=== PATIENT | male | born 1940 | race Caucasian/White ===

== ENCOUNTER 2016-10-31 11:11 | Observation (INO) ==
[2016-10-31] MEDS ORDERED: NITROSTAT SL PRN (11:30)
[2016-10-31] MEDS ORDERED: TYLENOL PO PRN (11:30)
[2016-10-31] MEDS ORDERED: ATROPINE SULFATE PFS IVP PRN (11:30)
[2016-10-31] MEDS ORDERED: MORPHINE 4 MG/ML SYRINGE IVP PRN (11:30)
[2016-10-31] MEDS ORDERED: VISTARIL INJ IM PRN (11:30)
[2016-10-31] MEDS ORDERED: DECADRON 4 MG/ML SDV IVP STA (11:35)
[2016-10-31] MEDS ORDERED: HUMULIN R SUBCUT PRN (11:35)
[2016-10-31 11:46] LABS: BASOPHILS % (AUTO) 0.6 % (0.0-3.0); EOSINOPHILS # (AUTO) 0.2 K/ul (0.0-0.7); EOSINOPHILS % (AUTO) 2.5 % (0.0-7.0); HEMOGLOBIN 11.8 g/dl (14.0-18.0); IMMATURE GRANULOCYTE % (AUTO) 0.4 % (0.0-5.0); LYMPHOCYTES # (AUTO) 0.9 K/uL (0.60-3.4); LYMPHOCYTES % (AUTO) 13.6 (10.0-50.0); MEAN CORPUSCULAR HEMOGLOBIN 30.9 pg (27.0-31.0); MEAN CORPUSCULAR HGB CONC 32.8 (31.8-35.4); MEAN CORPUSCULAR VOLUME 94.2 fl (80.0-94.0); MONOCYTES # (AUTO) 0.5 K/uL (0.4-2.0); MONOCYTES % (AUTO) 7.3 (0-10); NEUTROPHILS % (AUTO) 75.6; PLATELET COUNT 240 10^3/uL (140-440); RED BLOOD COUNT 3.82 10^6/ul (4.70-6.10); WHITE BLOOD COUNT 6.68 K/ul (4.2-10.2)
[2016-10-31 12:09] LABS: ALANINE AMINOTRANSFERASE 11 U/L (12-78); ALBUMIN 2.9 g/dL (3.4-5.0); ALBUMIN/GLOBULIN RATIO 0.71; ALKALINE PHOSPHATASE 71 U/L (56-119); ANION GAP 14.3; ASPARTATE AMINO TRANSFERASE 24 U/L (15-37); BILIRUBIN,TOTAL 0.48 mg/dL (0.00-1.20); BLOOD UREA NITROGEN 24 mg/dL (7-18); CARBON DIOXIDE 25 mmol/L (23-31); CHLORIDE 103 mmol/L (98-107); CREATINE KINASE 42 U/L; GLUCOSE 127 mg/dL (82-115); MYOGLOBIN 50 ng/ml; POTASSIUM 4.3 mmol/L (3.5-5.1); SODIUM 138 mmol/L (136-145)
--- NOTE | 2016-10-31 12:38 | DI ---
EXAM: Chest one view, frontal view only. HISTORY: Dizziness. Hypotension. Coronary artery disease. COMPARISON: 07/26/2016. FINDINGS: The heart size is normal. Post CABG changes noted. Atherosclerotic calcifications are p resent. There is no pulmonary vascular congestion. The lungs are clear. No pleural effusion or pn eumothorax is seen. No acute osseous abnormality is identified. Since the prior study, there has b een no significant interval change. IMPRESSION: No acute cardiopulmonary process.
--- NOTE | 2016-10-31 13:15 | US ---
EXAM: Bilateral carotid artery Doppler. History: Dizziness. Technique: Multiple sonographic images through the bilateral internal carotid arteries were obtaine d. Color duplex Doppler was used to interrogate vascular flow. Findings: The right ICA peak systolic velocity is within normal limits measuring 1.0 meters per second. The r ight ICA/cca PSV ratio is normal at 1.4. The right vertebral artery is patent and demonstrates ante grade flow. A moderate amount of heterogeneous plaque is seen within the right carotid bulb and pro ximal right internal carotid artery. The left ICA peak systolic velocity is within normal limits measuring 0.9 meters per second. The le ft ICA/cca PSV ratio is normal at 1.1. The left vertebral artery is patent and demonstrates antegra de flow. A moderate amount of heterogeneous plaque is seen within the left carotid bulb and proxima l left internal carotid artery on banegas scale imaging. Impression: 1. The velocities and ratios indicate no significant hemodynamic stenosis of the bilateral internal carotid arteries. 2. A moderate amount of plaque is seen bilaterally.
--- NOTE | 2016-10-31 13:23 | CT ---
EXAM: CT head without contrast HISTORY: Nausea and dizziness COMPARISON: CT head 07/26/2016 TECHNIQUE: Serial axial images of the brain were obtained from the skull base to the vertex without IV contrast. FINDINGS: The ventricles, cisterns and sulci demonstrate mild generalized volume loss. The banegas-wh ite matter junction is maintained. There is scattered low attenuation in the periventricular white matter.No midline shift or mass is identified. There is no abnormal intra or extra-axial fluid damaris ection. Calcified atherosclerotic changes noted in the arteries at the skull base. The paranasal sin uses and mastoid air cells are clear. The osseous calvarium is intact. IMPRESSION: 1. No acute intracranial abnormality or hemorrhage is identified. 2. No change in mild generalized volume loss and microangiopathy.
[2016-10-31] MEDS: SODIUM CHLORIDE 1,000 ML IV SCH (13:28)
--- NOTE | 2016-10-31 13:36 | CT ---
EXAM: CT abdomen pelvis without contrast HISTORY: Abdominal pain COMPARISON: None TECHNIQUE: CT abdomen pelvis performed without intravenous contrast. Coronal and sagittal reformat kim images obtained. FINDINGS: Curvilinear nodularity right lung base image 2. No free air. There are degenerative pavel nges in the spine. There is a lucent lesion at the peripheral sclerosis right femur. Additional sim ilar appearing lucent lesion left iliac bone. There are sclerotic lesions at T12, L1, L2, new from C T chest 03/03/2014, with mild age indeterminate compression deformity L2. No retropulsion. Degener ative changes in the spine. Evaluation organ parenchyma limited without contrast. Heart normal in s ize. Liver appears normal. Gallbladder appears normal. Pancreas appears normal. There is granulo matous calcification in the spleen. Spleen otherwise appears normal. There is stable 1.4 cm left ad renal nodule , unchanged from 2013. No hydronephrosis or nephrolithiasis. There is a low-density l eft renal lesion measuring 1.9 cm and slightly greater than simple fluid attenuation, indeterminate. No calculi visualized in normal course of the ureters. Bladder only minimally distended and poorl y evaluated, grossly unremarkable. There are radiopaque seeds in the prostate region. Small fat-co ntaining bilateral inguinal hernias. Aorta normal in caliber. Atherosclerosis. Stomach appears no rmal. No dilated loops small bowel. Appendix appears normal. There is colonic diverticulosis. S mall fat-containing umbilical hernia. No lymphadenopathy. No ascites. No inflammatory stranding i dentified in the abdomen pelvis. IMPRESSION: 1. No acute inflammatory process identified in the abdomen or pelvis. 2. Unexpected finding: Sclerotic vertebral body lesions, highly suspicious for metastasis, may be related to prostate cancer given radiopaque seeds in the prostate region. Mild age indeterminate co mpression fracture L2. 3. Additional lucent lesions as described, indeterminate. Right femoral lesion could conceivably re present avascular necrosis. Recommend attention on follow-up . 4. Curvilinear nodularity right lung base, probably representing scarring with small area of pneumo nitis or pulmonary nodule considered less likely. CT chest follow-up recommended 3 months for reeval uation. 5. Colonic diverticulosis. 6. Indeterminate left renal lesion. Recommend correlation with ultrasound. 7. Left adrenal nodule, probably adenoma.
[2016-10-31 13:57] LABS: ADD URINE MICROSCOPIC YES; BILIRUBIN,URINE Negative (NEGATIVE); KETONES,URINE Trace (NEGATIVE); LEUKOCYTE ESTERASE ,URINE Negative (NEGATIVE); NITRITE,URINE Negative (NEGATIVE); PH,URINE 6.5 (5-9); PROTEIN,URINE 1+ (NEGATIVE); URINE, BLOOD Negative (NEGATIVE)
[2016-10-31 14:16] VITALS: BMI 30.2
[2016-10-31] MEDS ORDERED: ANTIVERT PO SCH (15:00)
[2016-10-31] MEDS ORDERED: NORCO 7.5-325 PO SCH (15:00)
[2016-10-31] MEDS ORDERED: NON-FORMULARY MEDICATION (Meclizine Hcl [Meclizine Hcl] 25 MG) PO PRN (15:00)
[2016-10-31] MEDS ORDERED: NORCO 7.5-325 PO PRN (15:16)
[2016-10-31] MEDS: LIPITOR PO SCH (16:26)
[2016-10-31 20:14] LABS: CREATINE KINASE 45 U/L; MYOGLOBIN 34 ng/ml
[2016-10-31] MEDS: MS CONTIN PO SCH (21:12)
[2016-10-31] MEDS: NON-FORMULARY MEDICATION (Omega-3 Acid Ethyl Esters [Lovaza] 2 CAP) PO SCH (21:13)
[2016-11-01 05:37] LABS: BASOPHILS % (AUTO) 0.1 % (0.0-3.0); HEMATOCRIT 34.6 % (42.0-52.0); HEMOGLOBIN 11.7 g/dl (14.0-18.0); IMMATURE GRANULOCYTE % (AUTO) 0.7 % (0.0-5.0); LYMPHOCYTES # (AUTO) 1.2 K/uL (0.60-3.4); LYMPHOCYTES % (AUTO) 14.3 (10.0-50.0); MEAN CORPUSCULAR HEMOGLOBIN 31.1 pg (27.0-31.0); MEAN CORPUSCULAR HGB CONC 33.8 (31.8-35.4); MONOCYTES # (AUTO) 0.4 K/uL (0.4-2.0); MONOCYTES % (AUTO) 4.3 (0-10); NEUTROPHILS # (AUTO) 6.9 K/ul (2.0-6.9); NEUTROPHILS % (AUTO) 80.6; PLATELET COUNT 264 10^3/uL (140-440); RED BLOOD COUNT 3.76 10^6/ul (4.70-6.10); WHITE BLOOD COUNT 8.55 K/ul (4.2-10.2)
[2016-11-01 05:49] VITALS: BP 140/72; TEMP 97.2
[2016-11-01 06:01] LABS: ALBUMIN 2.9 g/dL (3.4-5.0); ALBUMIN/GLOBULIN RATIO 0.64; ANION GAP 14.1; BILIRUBIN,TOTAL 0.28 mg/dL (0.00-1.20); BUN/CREATININE RATIO 18.43; CREATININE 1.41 mg/dL (0.60-1.10); POTASSIUM 5.1 mmol/L (3.5-5.1); TOTAL PROTEIN 7.4 g/dL (5.8-8.1)
[2016-11-01] MEDS ORDERED: ASPIRIN EC PO SCH (08:00)
[2016-11-01] MEDS: LIPITOR PO SCH (08:02)
[2016-11-01] MEDS: NON-FORMULARY MEDICATION (Omega-3 Acid Ethyl Esters [Lovaza] 2 CAP) PO SCH (08:03)
[2016-11-01] MEDS: MS CONTIN PO SCH (08:08)
[2016-11-01] MEDS: SODIUM CHLORIDE 1,000 ML IV SCH (08:08)
[2016-11-01] MEDS ORDERED: NON-FORMULARY MEDICATION (Potassium Chloride [Klor-Con 10] 10 MEQ) PO SCH ×22 (09:00)
[2016-11-01] MEDS ORDERED: MULTIVIT MIN PO SCH (09:00)
[2016-11-01] MEDS ORDERED: NON-FORMULARY MEDICATION PO SCH ×22 (09:00)
[2016-11-01] MEDS ORDERED: LYCOPENE PO SCH (09:00)
[2016-11-01] MEDS ORDERED: FLOMAX PO SCH (09:00)
[2016-11-01] MEDS ORDERED: ASPIRIN CHEWABLE PO SCH (09:00)
[2016-11-01] MEDS ORDERED: LOPRESSOR PO SCH ×3 (09:00)
[2016-11-01] MEDS ORDERED: LUT PO SCH (09:00)
[2016-11-01] MEDS ORDERED: TRADJENTA PO SCH (09:00)
[2016-11-01] MEDS ORDERED: MIRALAX PO SCH (09:00)
[2016-11-01] MEDS ORDERED: [UNRECOGNIZED DRUG - OTHER] PO SCH (09:00)
[2016-11-01] MEDS ORDERED: NON-FORMULARY MEDICATION (Atorvastatin Calcium [Atorvastatin Calcium] 80 MG) PO SCH ×22 (09:00)
[2016-11-01] MEDS ORDERED: NEURONTIN PO SCH (09:00)
[2016-11-01] MEDS ORDERED: ABIRATERONE ACETATE 1000 MG PO SCH (10:00)
--- NOTE | 2016-11-01 13:37 | PCM.PROG ---
Attending Provider: ATTENDING PROVIDER: Dr. VERONIKA OCONNELL DATE OF SERVICE: 11/01/16 SUBJECTIVE: This 76 year old WHITE/ M was hospitalized 10/31/16. The patient is admitted with severe dizziness and hypertension most likely medication and dehydration related. CT scan of of the abdomen and pelvis shows L2 compression deformity and with questionable mets. Given his history of prostate cancer and the fact the patient has followup with Dr. Iverson in the morning, radiation/ oncologist in [place], he is being discharged today. The patient is wanting to go home. As of now, he is walking fine, no cauda equina syndrome. He is urinating without any problems. REVIEW OF SYSTEMS: CONSTITUTIONAL: No fever, no chills. ENDOCRINE: No weight loss or weight gain. HEENT: No sinus drainage, no sore throat. CVS: No angina symptoms. No CHF symptoms. No palpitations. No atypical chest pain for CAD. No shortness of breath. RESPIRATORY: No cough, no hemoptysis. GI: No melena. No abdominal pain. No nausea, no vomiting. : No hematuria. No polyuria. SKIN: No rash. No wounds. MUSCULOSKELETAL: No pain. CEILING INSULATION BLOWER: No blackout, no dizziness. No headache. No double vision. PSYCHIATRIC: Not anxious; no depression. No suicidal thoughts. No homicidal thoughts. PHYSICAL EXAMINATION: GENERAL: Sitting up in bed in no distress. VITAL SIGNS: Temperature 97.2 F, Pulse 69, Respiratory Rate 16, BP 140/72, Pulse Ox 98% HEENT: Normocephalic, atraumatic. Mucosa is dry, pallor positive. NECK: No JVP, no carotid bruit. No lymphadenopathy. CARDIAC: S1, S2, no S3. No murmur, gallop or regurgitation. LUNGS: Clear to auscultation. ABDOMEN: Soft, non-tender. Bowel sounds active. No rigidity, guarding or CVA tenderness. EXTREMITIES: No clubbing, cyanosis or edema. NEUROLOGIC: Awake, alert and oriented x3. LYMPHATIC: No palpable lymph nodes SKIN: Not dry. Intact. MUSCULOSKELETAL: No joint swelling. LAB REVIEW: 11/01/16 05:47 11/01/16 05:47 11/01/16 05:47: WBC 8.55, RBC 3.76 L, Hgb 11.7 L, Hct 34.6 L, MCV 92.0, MCH 31.1 H, MCHC 33.8, RDW Coeff of Bryn 12.7, Plt Count 264, Immature Gran % (Auto) 0.7, Neut % (Auto) 80.6, Lymph % (Auto) 14.3, [place] % (Auto) 4.3, Eos % (Auto) 0.0, Baso % (Auto) 0.1, Immature Gran # (Auto) 0.1, Neut # 6.9, Lymph # 1.2, [place] # 0.4, Eos # 0.0, Baso # 0.0, Sodium 136, Potassium 5.1, Chloride 105, Carbon Dioxide 22 L, Anion Gap 14.1, BUN 26 H, Creatinine 1.41 H, Estimated GFR (MDRD) 49.00, BUN/Creatinine Ratio 18.43, Glucose 152 H, Calcium 9.0, Total Bilirubin 0.28, AST 21, ALT 12, Alkaline Phosphatase 69, Total Protein 7.4, Albumin 2.9 L, Globulin 4.5, Albumin/Globulin Ratio 0.64 10/31/16 19:40: Total Creatine Kinase 45, Myoglobin 34, Troponin I < 0.0100 10/31/16 13:30: Urine Color Yellow, Urine Clarity Clear, Urine pH 6.5, Ur Specific [place] 1.020, Urine Protein 1+, Urine Glucose (UA) Negative, Urine Ketones Trace, Urine Blood Negative, Urine Nitrite Negative, Urine Bilirubin Negative, Urine Urobilinogen 0.2, Ur Leukocyte Esterase Negative, Urine Microscopic RBC 0-2, Ur Squamous Epith Cells 2-5 10/31/16 11:30: WBC 6.68, RBC 3.82 L, Hgb 11.8 L, Hct 36.0 L, MCV 94.2 H, MCH 30.9, MCHC 32.8, RDW Coeff of Bryn 13.2, Plt Count 240, Immature Gran % (Auto) 0.4, Neut % (Auto) 75.6, Lymph % (Auto) 13.6, [place] % (Auto) 7.3, Eos % (Auto) 2.5, Baso % (Auto) 0.6, Immature Gran # (Auto) 0.0, Neut # 5.0, Lymph # 0.9, [place] # 0.5, Eos # 0.2, Baso # 0.0, Sodium 138, Potassium 4.3, Chloride 103, Carbon Dioxide 25, Anion Gap 14.3, BUN 24 H, Creatinine 1.60 H, Estimated GFR ( MDRD) 42.00, BUN/Creatinine Ratio 15.00, Glucose 127 H, Calcium 9.0, Total Bilirubin 0.48, AST 24, ALT 11 L, Alkaline Phosphatase 71, Total Creatine Kinase 42, Myoglobin 50, Troponin I < 0.0100, Total Protein 7.0, Albumin 2.9 L, Globulin 4.1, Albumin/Globulin Ratio 0.71 ASSESSMENT: 1. Dizziness, medication related 2. Dehydration which is much better 3. Prostate cancer with mets; follows with Dr. Iverson, radiation/oncologist 4. Hypertension 5. BPH 6. Dyslipidemia 7. Osteoarthritis 8. DJD spine 9. 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 Diabetes mellitus PLAN: 1. Discharge home 2. Inform Dr. Iverson's office about CT findings. The patient follows with and has an appointment tomorrow at 8 a.m. 3. Medication side effects (pain medication, blood pressure pills discussed, increase hydration 4. Followup in the office in one week Plan and coordination of the patient's care discussed in the presence of Shop Teacher and nurse. EDUCATION: Discussed with the patient results of CT scan of abdomen and discharge plan with the patient. He voiced understanding and is in agreement. CONDITION: Stable SCRIBED BY: STEVO RESENDIZ [employer] Education Consultant scribed while in presence of service performed by Dr. VERONIKA OCONNELL on 11/01/16 (0812)
--- NOTE | 2016-11-03 07:22 | SSS ---
DATE OF SERVICE: 10/31/16 - ADMITTED 11/01/16 - DISCHARGE REASON FOR ADMISSION: Observation for dizziness. HISTORY OF PRESENT ILLNESS: This is a 76-year-old male patient who was a direct admit to observation after office visit today. The patient said he had been dizzy with visual disturbance , unable to walk due to vision changes. Denies muscle weakness in legs. REVIEW OF SYSTEMS: CONSTITUTIONAL: Positive for fatigue. No weakness. No night sweats. No fever or chills. HEENT: Eyes: No visual changes. No eye pain. No eye discharge. ENT: No runny nose. No epistaxis. No sinus pain. No sore throat. No odynophagia. No ear pain. No congestion. RESPIRATORY: No cough, no congestion. No hemoptysis. CARDIOVASCULAR: No angina symptoms. No CHF symptoms. No atypical chest pain for CAD. No palpitations. No shortness of breath. GASTROINTESTINAL: No abdominal pain. No nausea or vomiting. No diarrhea or constipation. No hematemesis. No hematochezia. GENITOURINARY: No urgency. No frequency. No dysuria. No hematuria. No obstructive symptoms. No discharge. No pain. No significant abnormal bleeding. MUSCULOSKELETAL: No musculoskeletal pain. No joint swelling. NEUROLOGICAL: Awake, alert, oriented to time, place and person. No headache. No neck pain. No syncope. No seizures. No dizziness. PSYCHIATRIC: Not anxious. No depression. No suicidal thoughts. No homicidal thoughts. SKIN: No rash. No lesions. No wounds. ENDOCRINE: No unexplained weight loss. No weight gain. HEMATOLOGIC/LYMPHATIC: No anemia. No purpura. No petechiae. No prolonged or excessive bleeding. No palpable lymph nodes. PAST MEDICAL HISTORY: 1. CAD status post CABG, four vessel, 2005 2. Prostate cancer - radiation 3. Diabetes mellitus, Type 2 4. Neuropathy 5. Dyslipidemia 6. Hypertension 7. Degenerative disk disease - spine 8. Bone and blood metastasis, follows with Dr. Kim/Dr. Iverson PERSONAL/FAMILY HISTORY/SOCIAL HISTORY: The patient is , independent with ADLs. He is a former smoker. No ETOH. He has a bedside commode. No Home Health or Homemaking Services. Family provides support. PHYSICAL EXAMINATION: GENERAL: 76-year-old male. Height 6'1", Weight 229 pounds. VITAL SIGNS: Admission vital signs: BP 90/53, heart rate 56, respiratory rate 12, temperature 97.7. Sats on room air 97%. HEENT: Head normocephalic, atraumatic. Pallor positive. NECK: Supple. No JVD, no carotid bruit. No lymphadenopathy or thyromegaly. LUNGS: Bilaterally equal and clear to auscultation. Percussion note normal. Chest symmetrical. HEART: S1, S2, no S3. No murmurs. No cyanosis or clubbing. No ascites. ABDOMEN: Soft. Nontender. Bowel sounds active. No CVA tenderness. No mass felt. EXTREMITIES: No edema. Full range of motion of all extremities, equal. NEUROLOGIC: No focal deficit. Cranial nerves II through XII are grossly intact. No headache, no double vision or headache. SKIN: Not dry. Intact. Turgor - normal. LYMPHATIC: No palpable lymph nodes/no lymphedema. MUSCULOSKELETAL: Normal joints with no swelling. Muscle tone is normal. Old/present records reviewed Office records reviewed. ALLERGIES: NKDA MEDICATIONS: 1. Zytiga 2. Meclizine 3. Klor-Con 4. Centrum Silver 5. MS Contin 6. [place] 7. Lovaza 8. Lopressor 9. ASA 10. Tamsulosin 11. Miralax 12. Atorvastatin 13. Tradjenta 14. Gabapentin LABS/EKG'S/X-RAY/ECHO/ABG: Carotid ultrasound - no hemodynamically significant stenosis per velocities. CT scan of abdomen and pelvis - no acute process. Sclerotic vertebral body lesions suspicious for mets. Age indeterminate compression fracture L2; right femoral lesion, avascular necrosis. Left renal lesion. Left adrenal nodule, adenoma. Head CT is negative. Chest x-ray is negative. PROGRESS NOTES: See EMR. DIAGNOSES: 1. DIZZINESS 2. PROSTATE CANCER WITH METASTASIS 3. L2 COMPRESSION FRACTURE 4. CORONARY ARTERY DISEASE 5. CORONARY ARTERY BYPASS GRAFTING 6. DIABETES MELLITUS TYPE 2 7. HYPERTENSION RECOMMENDATIONS/PLAN: 1. Discharge home today 2. Resume home medications 3. No new prescriptions 4. Keep appointment with Dr. Iverson 11/02/16 at 8 a.m. 5. Call to schedule office appointment in 7 to 10 days 6. Take CD with you for appointment with Dr. Iverson 7. Stay well-hydrated EDUCATION CARRIED OUT ABOUT: CT findings, followup and medications. TIME SPENT: More than 70 minutes. JORGED
== END 2016-11-01 11:15 | disposition home or self-care (01) ==
LOC: MEDSURG B 11:11
PROVIDERS: ADMIT Emergency Medicine; ATTEND Emergency Medicine
DX: R42 Dizziness and giddiness (principal); N40.0 Benign prostatic hyperplasia without lower urinary tract symptoms; C61 Malignant neoplasm of prostate; C79.51 Secondary malignant neoplasm of bone; G89.29 Other chronic pain; E86.0 Dehydration; M43.8X6 Other specified deforming dorsopathies, lumbar region; E11.9 Type 2 diabetes mellitus without complications; I10 Essential (primary) hypertension; E78.5 Hyperlipidemia, unspecified; M19.90 Unspecified osteoarthritis, unspecified site; M47.9 Spondylosis, unspecified; S32.029A Unspecified fracture of second lumbar vertebra, initial encounter for closed fracture; I25.10 Atherosclerotic heart disease of native coronary artery without angina pectoris; Z95.1 Presence of aortocoronary bypass graft; Z79.899 Other long term (current) drug therapy; Z79.84 Long term (current) use of oral hypoglycemic drugs
CPT/HCPCS: 36415; 80053; 81001; 82550; 82962; 83874; 84484; 85025; 93005; 93010; 96361; 96374

== ENCOUNTER 2016-12-23 09:52 | Emergency (ER) ==
[2016-12-23 09:58] VITALS: BP 111/63; TEMP 98.5; BMI 29.7
[2016-12-23 10:41] LABS: HEMATOCRIT 31.6 % (42.0-52.0); HEMOGLOBIN 10.7 g/dl (14.0-18.0); MEAN CORPUSCULAR HEMOGLOBIN 30.5 pg (27.0-31.0); MEAN CORPUSCULAR HGB CONC 33.9 (31.8-35.4); PLATELET COUNT 182 10^3/uL (140-440); RED BLOOD COUNT 3.51 10^6/ul (4.70-6.10); WHITE BLOOD COUNT 4.41 K/ul (4.2-10.2)
[2016-12-23 11:05] LABS: ALBUMIN 2.5 g/dL (3.4-5.0); ALBUMIN/GLOBULIN RATIO 0.68; ANION GAP 13.7; BILIRUBIN,TOTAL 0.93 mg/dL (0.00-1.20); BUN/CREATININE RATIO 15.51; CALCIUM 8.8 mg/dL (8.2-10.2); CREATININE 1.16 mg/dL (0.60-1.10); POTASSIUM 3.7 mmol/L (3.5-5.1); TOTAL PROTEIN 6.2 g/dL (5.8-8.1); TROPONIN I 0.031 ng/ml (0.0000-0.4000)
--- NOTE | 2016-12-23 11:14 | DI ---
EXAM: Two x-rays of the chest. Comparison: 10/31/2016. Reason for exam: Cough. FINDINGS: No pneumothorax, pleural effusion, or focal consolidation. Operative changes are seen af ter midline sternotomy and left-sided Port-A-Cath placement with the tip in the superior vena cava. There is a small focus of linear atelectasis in the left lung base. Osseous changes are seen in th e right rib likely from prior injury. The cardiac silhouette is not enlarged. The inferior-most walter rnotomy wire is fractured. Impression: No acute cardiopulmonary process.
[2016-12-23 11:15] LABS: ANISOCYTOSIS NOT PRESENT (NOT PRESENT)
--- NOTE | 2016-12-23 11:21 | CT ---
EXAM: CT of the head without contrast History: Headache. Comparison: Head CT 10/31/2016 Technique: Multiplanar CT images through the head were obtained without the administration of IV co ntrast Findings: Air-fluid levels seen within the left maxillary sinus. Mastoid air cells are generally c lear. No acute calvarial abnormalities. Intracranially the ventricular cisternal spaces are normal in size, shape and configuration for a pa tient of this age. No dominant mass or midline shift. No hydrocephalous. No acute intracranial he morrhage or abnormal extraaxial fluid collections. Impression: 1. No acute intracranial process. 2. Left maxillary sinusitis.
[2016-12-23] MEDS ORDERED: DECADRON 4 MG/ML SDV IM STA (13:11)
--- NOTE | 2016-12-23 13:15 | ED.PDOC ---
General ED Provider: Dr. CATRINA MCKENNA Chief Complaint: Sore Throat Stated Complaint: SORE THROAT Time Seen by Physician: 10:00 Mode of Arrival: Walk-In Information Source: Patient Exam Limitations: No limitations Primary Care Provider: CALOS VÁSQUEZ Nursing and Triage Documentation Reviewed and Agree: Yes Neurological Complaint Exam - Weakness Complaint/Exam Last Known Well: UNKNWON Onset: Gradual Symptoms Are: Still present Episodes Lasting: Hours Initial Severity: Mild Current Severity: Mild Character: Reports: Lightheaded, Weak Aggravating: Reports: None Alleviating: Reports: None Associated Signs and Symptoms: Denies: Nausea, Vomiting, Diaphoresis, Tinnitus, Chest pain, Short of air, Palpitations, Unsteady gait, GI blood loss, Visual changes, Decreased oral intake, Change in medication, Change in diet, OTC meds, Loss of balance Related History: Similar episode Cardiac Risk Factors: Reports: Hypertension, Diabetes, Elevated lipids CVA Risk Factors: Reports: Diabetes, Hypertension Related Surgical History: Reports: None JVD Present: No Carotid Bruit Present: No Rectal Heme Positive: No Gl[place]ow Coma Scale (see protocol): 15 Nystagmus Present: No Gag Reflex Present: Yes Meningeal Signs Positive: No Focal Weakness: Present: None Focal Sensory Loss: Present: None Gait: Normal Differential Diagnoses: Dysrhythmia, Hyperventilation, Hypovolemia, Medication reaction, Metabolic abnormalities, Vasovagal reaction Quality Indicators for Cardiac Chest Pain: EKG in 10min. Quality Indicators for AMI: EKG in 10min. Quality Indicator For Non-Traumatic Chest Pain/Syncope: EKG Performed Review of Systems - Review Of Systems Constitutional: Reports: Malaise, Weakness Eyes: Reports: No symptoms Ears, Nose, Mouth, Throat: Reports: Throat pain Respiratory: Reports: No symptoms Cardiac: Reports: No symptoms GI: Reports: No symptoms : Reports: No symptoms Musculoskeletal: Reports: No symptoms Skin: Reports: No symptoms Neurological: Reports: No symptoms Endocrine: Reports: No symptoms Hematologic/Lymphatic: Reports: No symptoms All Other Systems: Reviewed and Negative Past Medical History - Past Medical History Previously Healthy: No Endocrine: Reports: DM 2, Dyslipidemia Cardiovascular: Reports: Hypertension Respiratory: Reports: COPD Hematological: Reports: None Gastrointestinal: Reports: None Genitourinary: Reports: None Neuro/Psych: Reports: None Musculoskeletal: Reports: None Cancer: Reports: None, Other (PROSTATE) - Surgical History General Surgical History: Reports: None - Family History Family History: Reports: None - Social History Smoking Status: Former smoker Hx Substance Use: No Alcohol Screening: None - Immunizations Tetanus Shot up to Date: Yes Physical Exam - Physical Exam Appearance: Well-appearing, No pain distress, Well-nourished Eyes: HOLLY, EOMI, Conjunctiva clear ENT: Erythema Respiratory: Airway patent, Breath sounds clear, Breath sounds equal, Respirations nonlabored Cardiovascular: RRR, Pulses normal, No rub, No murmur GI/: Soft, Nontender, No masses, Bowel sounds normal, No Organomegaly Musculoskeletal: Normal strength, ROM intact, No edema, No calf tenderness Skin: Warm, Dry, Normal color Neurological: Sensation intact, Motor intact, Reflexes intact, Cranial nerves intact, Alert, Oriented Psychiatric: Affect appropriate, Mood appropriate Critical Care Note - Critical Care Note Total Time (mins): 0 Course - Course Hematology/Chemistry: 12/23/16 10:30 12/23/16 10:30 Orders, Labs, Meds: Lab Review 12/23/16 10:30 WBC 4.41 RBC 3.51 L Hgb 10.7 L Hct 31.6 L MCV 90.0 MCH 30.5 MCHC 33.9 RDW Coeff of Bryn 13.2 Plt Count 182 Neutrophils % (Manual) 72.0 Band Neutrophils % 1.0 Lymphocytes % (Manual) 16.0 Monocytes % (Manual) 2.0 Eosinophils % (Manual) 1.0 Metamyelocytes % 8.0 H RBC Morph Comment Sodium 136 Potassium 3.7 Chloride 101 Carbon Dioxide 25 Anion Gap 13.7 BUN 18 Creatinine 1.16 H Estimated GFR (MDRD) 61.00 BUN/Creatinine Ratio 15.51 Glucose 153 H Lactic Acid 18.5 Calcium 8.8 Total Bilirubin 0.93 AST 36 ALT 27 Alkaline Phosphatase 79 Total Creatine Kinase 35 Troponin I 0.0310 Total Protein 6.2 Albumin 2.5 L Globulin 3.7 Albumin/Globulin Ratio 0.68 Orders Category Date Time Status EKG-(ED ONLY) Stat CARDIO 12/23/16 10:18 Completed BLOOD CULTURE Stat LAB 12/23/16 10:30 Received CBC W/ AUTO DIFF Stat LAB 12/23/16 10:30 Completed COMPREHENSIVE METABOLIC PANEL Stat LAB 12/23/16 10:30 Completed CREATINE KINASE Stat LAB 12/23/16 10:30 Completed LACTIC ACID Stat LAB 12/23/16 10:30 Completed MANUAL DIFFERENTIAL Stat LAB 12/23/16 10:30 Completed MOLECULAR GROUP A STREP Stat LAB 12/23/16 10:30 Results STREP SCREEN Stat LAB 12/23/16 10:30 Results TROPONIN I Stat LAB 12/23/16 10:30 Completed Dexamethasone 4 mg/ml Inj [Decadron 4 mg/ml Sdv] MEDS 12/23/16 13:11 Discontinued 4 mg IM ONCE STA CHEST, 2 VIEWS PA & LAT Stat RADS 12/23/16 10:[address] HEAD W/O CONTRAST Stat RADS 12/23/16 10:40 Completed Medications Discontinued Medications Generic Name Dose Route Start Last Admin Trade Name Freq PRN Reason Stop Dose Admin Dexamethasone Sodium Phosphate 4 mg 12/23/16 13:11 Decadron 4 Mg/Ml Sdv IM 12/23/16 13:12 ONCE STA Vital Signs: Temp Pulse Resp BP Pulse Ox 12/23/16 09:52 98.5 F 111 H 20 111/63 95 Departure - Departure Time of Disposition: 13:16 Disposition: ADMITTED INPATIENT Discharge Problem: Sore throat symptom, Weakness generalized Instructions: Weakness (ED) Condition: Good Pt referred to PMD for follow-up: No Allergies/Adverse Reactions: Allergies No Known Allergies Allergy (Verified 12/23/16 09:58) Home Medications: Ambulatory Orders Metoprolol Tartrate 100 mg PO DAILY 10/10/13 [place]-3 Acid Ethyl Esters [Lovaza] 2 cap PO BID 10/10/13 Potassium Chloride [Klor-Con 10] 10 meq PO DAILY 10/10/13 Tamsulosin HCl 0.4 mg PO DAILY 10/10/13 Hydrocodone Bit/Acetaminophen [[place] 7.5-325] 1 each PO TID 07/26/16 Linagliptin [Tradjenta] 5 mg PO DAILY 07/26/16 Multivit-Min/FA/Lycopene/Lut [Centrum Silver Tablet] 1 each PO DAILY 07/26/16 Aspirin 81 mg PO DAILY 10/31/16 Atorvastatin Calcium 80 mg PO DAILY 10/31/16 Gabapentin 300 mg PO DAILY 10/31/16 Meclizine HCl 25 mg PO TID 10/31/16 Morphine Sulfate [Ms Contin] 15 mg PO BID 10/31/16 Polyethylene Glycol 3350 [Miralax] 17 gm LEFT EAR DAILY 10/31/16 Abiraterone Acetate [Zytiga] 1,000 mg PO 1000 11/01/16
== END 2016-12-23 14:11 | disposition home or self-care (01) ==
LOC: ED 09:52
DX: J02.9 Acute pharyngitis, unspecified (principal); R53.1 Weakness; R42 Dizziness and giddiness; I10 Essential (primary) hypertension; E11.9 Type 2 diabetes mellitus without complications; E78.5 Hyperlipidemia, unspecified; Z79.899 Other long term (current) drug therapy
CPT/HCPCS: 36415; 80053; 82550; 83605; 84484; 85007; 85025; 87040; 87651; 87880; 93005; 93010; 96372; 99283

== ENCOUNTER 2016-12-31 12:31 | Outpatient (CLI) | END 2016-12-31 12:32 | disposition home or self-care (01) | LOC: AMBL 12:31 | PROVIDERS: ATTEND Internal Medicine Geriatric Medicine | DX: R55 Syncope and collapse (principal); C61 Malignant neoplasm of prostate; R63.0 Anorexia; R03.1 Nonspecific low blood-pressure reading; E11.9 Type 2 diabetes mellitus without complications ==

== ENCOUNTER 2017-01-19 15:26 | Observation (INO) | payer OTHER ==
[2017-01-19 16:02] LABS: HEMATOCRIT 27.7 % (42.0-52.0); HEMOGLOBIN 9.5 g/dl (14.0-18.0); MEAN CORPUSCULAR HEMOGLOBIN 30.6 pg (27.0-31.0); MEAN CORPUSCULAR HGB CONC 34.3 (31.8-35.4); MEAN CORPUSCULAR VOLUME 89.4 fl (80.0-94.0); PLATELET COUNT 336 10^3/uL (140-440)
[2017-01-19 16:03] LABS: WHITE BLOOD COUNT 26.67 K/ul (4.2-10.2)
[2017-01-19 16:08] LABS: ANISOCYTOSIS NOT PRESENT (NOT PRESENT)
--- NOTE | 2017-01-19 16:14 | DI ---
EXAM: CHEST FRONTAL VIEW HISTORY: Cough. COMPARISON: 12/23/2016 FINDINGS: Heart size is within normal limits. Moderate aortic atherosclerosis. Sternotomy wires a re noted. Left port catheter is again seen. The tip of the catheter has moved slightly with either posterior or anterior angulation and its distal most aspect. Correlate for adequate function. The tip remains superimposed over the superior vena cava. Lungs are grossly clear. IMPRESSION: 1. No acute cardiopulmonary process. 2. Slight change in position of the distal port catheter of indeterminate clinical significance.
[2017-01-19 16:27] LABS: ALANINE AMINOTRANSFERASE 13 U/L (12-78); ALBUMIN 2.6 g/dL (3.4-5.0); ALBUMIN/GLOBULIN RATIO 0.68; ALKALINE PHOSPHATASE 109 U/L (56-119); ANION GAP 15.1; ASPARTATE AMINO TRANSFERASE 17 U/L (15-37); BILIRUBIN,TOTAL 0.31 mg/dL (0.00-1.20); BLOOD UREA NITROGEN 15 mg/dL (7-18); BUN/CREATININE RATIO 8.92; CALCIUM 8.3 mg/dL (8.2-10.2); CARBON DIOXIDE 16 mmol/L (23-31); CHLORIDE 107 mmol/L (98-107); CREATINE KINASE 32 U/L; CREATININE 1.68 mg/dL (0.60-1.10); GLUCOSE 91 mg/dL (82-115); POTASSIUM 3.1 mmol/L (3.5-5.1); SODIUM 135 mmol/L (136-145); TOTAL PROTEIN 6.4 g/dL (5.8-8.1)
--- NOTE | 2017-01-19 18:15 | ED.PDOC ---
General ED Provider: Dr. CATRINA MCKENNA Chief Complaint: Weakness Stated Complaint: weakness Time Seen by Physician: 15:30 Mode of Arrival: Wheelchair Information Source: Patient Exam Limitations: No limitations Primary Care Provider: CALOS VÁSQUEZ Nursing and Triage Documentation Reviewed and Agree: Yes Neurological Complaint Exam - Weakness Complaint/Exam Last Known Well: today at pmd blood pressure was low on arrival systolic 150 is noted Onset: Gradual Duration: today Symptoms Are: Still present Timing: Constant Episodes Lasting: Weeks Initial Severity: Moderate Current Severity: Moderate Character: Reports: Lightheaded, Weak Aggravating: Reports: None Associated Signs and Symptoms: Denies: Nausea, Vomiting, Diaphoresis, Tinnitus, Chest pain, Short of air, Palpitations, Unsteady gait, GI blood loss, Visual changes, Decreased oral intake, Change in medication, Change in diet, OTC meds, Loss of balance Related History: Similar episode Cardiac Risk Factors: Reports: Hypertension, Diabetes CVA Risk Factors: Reports: Diabetes, Hypertension JVD Present: No Carotid Bruit Present: No Glascow Coma Scale (see protocol): 15 Nystagmus Present: No Gag Reflex Present: Yes Meningeal Signs Positive: No Focal Weakness: Present: None Focal Sensory Loss: Present: None Gait: Normal Differential Diagnoses: Hypovolemia, Metabolic abnormalities Quality Indicators for AMI: EKG in 10min. Review of Systems - Review Of Systems Constitutional: Reports: Malaise, Weakness Eyes: Reports: No symptoms Ears, Nose, Mouth, Throat: Reports: No symptoms Respiratory: Reports: No symptoms Cardiac: Reports: No symptoms GI: Reports: No symptoms : Reports: No symptoms Musculoskeletal: Reports: No symptoms Skin: Reports: No symptoms Neurological: Reports: No symptoms Endocrine: Reports: No symptoms Hematologic/Lymphatic: Reports: No symptoms All Other Systems: Reviewed and Negative Past Medical History - Past Medical History Previously Healthy: No Endocrine: Reports: DM 2, Dyslipidemia Cardiovascular: Reports: Hypertension Respiratory: Reports: COPD Hematological: Reports: None Gastrointestinal: Reports: None Genitourinary: Reports: None Neuro/Psych: Reports: None Musculoskeletal: Reports: None Cancer: Reports: None, Other (PROSTATE) - Surgical History General Surgical History: Reports: None - Family History Family History: Reports: None - Social History Smoking Status: Former smoker Hx Substance Use: No Alcohol Screening: None Physical Exam - Physical Exam Appearance: Ill-appearing Eyes: HOLLY, EOMI, Conjunctiva clear ENT: Ears normal, Nose normal, Oropharynx normal Respiratory: Airway patent, Breath sounds clear, Breath sounds equal, Respirations nonlabored Cardiovascular: RRR, Pulses normal, No rub, No murmur GI/: Soft, Nontender, No masses, Bowel sounds normal, No Organomegaly Musculoskeletal: Normal strength, ROM intact, No edema, No calf tenderness Skin: Warm, Dry, Normal color Neurological: Sensation intact, Motor intact, Reflexes intact, Cranial nerves intact, Alert, Oriented Psychiatric: Affect appropriate, Mood appropriate Interpretation - Radiology Interpretation Radiology Interpretation By: Radiologist Radiology Results: No acute changes - Contact Agent Rate: Normal Rhythm: Sinus Ectopy: None - EKG Interpretation Rate: Normal Rhythm: Sinus Ectopy: None [place]: Left Critical Care Note - Critical Care Note Total Time (mins): 0 Course - Course Hematology/Chemistry: 01/19/17 15:55 01/19/17 15:55 Orders, Labs, Meds: Lab Review 01/19/17 15:55 WBC 26.67 H RBC 3.10 L Hgb 9.5 L Hct 27.7 L MCV 89.4 MCH 30.6 MCHC 34.3 RDW Coeff of Bryn 15.1 H Plt Count 336 Neutrophils % (Manual) 87.0 H Band Neutrophils % 2.0 Lymphocytes % (Manual) 4.0 L Monocytes % (Manual) 5.0 Metamyelocytes % 2.0 Sodium 135 L Potassium 3.1 L Chloride 107 Carbon Dioxide 16 L Anion Gap 15.1 BUN 15 Creatinine 1.68 H Estimated GFR (MDRD) 40.00 BUN/Creatinine Ratio 8.92 Glucose 91 Lactic Acid 18.9 Calcium 8.3 Total Bilirubin 0.31 AST 17 ALT 13 Alkaline Phosphatase 109 Total Creatine Kinase 32 Troponin I < 0.0100 Total Protein 6.4 Albumin 2.6 L Globulin 3.8 Albumin/Globulin Ratio 0.68 Orders Category Date Time Status PLACE PATIENT OBSERVATION .TO MEDS[facility] (MONITORED BED ADMISSION 01/19/17 18: 10 Ordered ) EKG-(ED ONLY) Stat CARDIO 01/19/17 15:42 Completed EKG-(IP & OP ONLY) DAILY CARDIO 01/20/17 06:00 Ordered EKG-(IP & OP ONLY) DAILY CARDIO 01/21/17 06:00 Ordered EKG-(IP & OP ONLY) DAILY CARDIO 01/22/17 06:00 Ordered ACTIVITY .BR with BRP CARE 01/19/17 18:10 Ordered TELEMETRY MONITORING TELE CARE 01/19/17 18:10 Ordered VITAL SIGNS Q8HR CARE 01/19/17 18:10 Ordered REGULAR DIET DIETARY 01/19/17 Dinner Ordered BLOOD CULTURE Stat LAB 01/19/17 15:55 Received CBC W/ AUTO DIFF DAILY@0600 LAB 01/20/17 06:00 Ordered CBC W/ AUTO DIFF DAILY@0600 LAB 01/21/17 06:00 Ordered CBC W/ AUTO DIFF DAILY@0600 LAB 01/22/17 06:00 Ordered CBC W/ AUTO DIFF DAILY@0600 LAB 01/23/17 06:00 Ordered CBC W/ AUTO DIFF DAILY@0600 LAB 01/24/17 06:00 Ordered CBC W/ AUTO DIFF DAILY@0600 LAB 01/25/17 06:00 Ordered CBC W/ AUTO DIFF DAILY@0600 LAB 01/26/17 06:00 Ordered CBC W/ AUTO DIFF DAILY@0600 LAB 01/27/17 06:00 Ordered CBC W/ AUTO DIFF DAILY@0600 LAB 01/28/17 06:00 Ordered CBC W/ AUTO DIFF DAILY@0600 LAB 01/29/17 06:00 Ordered CBC W/ AUTO DIFF DAILY@0600 LAB 01/30/17 06:00 Ordered CBC W/ AUTO DIFF DAILY@0600 LAB 01/31/17 06:00 Ordered CBC W/ AUTO DIFF DAILY@0600 LAB 02/01/17 06:00 Ordered CBC W/ AUTO DIFF DAILY@0600 LAB 02/02/17 06:00 Ordered CBC W/ AUTO DIFF DAILY@0600 LAB 02/03/17 06:00 Ordered CBC W/ AUTO DIFF DAILY@0600 LAB 02/04/17 06:00 Ordered CBC W/ AUTO DIFF DAILY@0600 LAB 02/05/17 06:00 Ordered CBC W/ AUTO DIFF DAILY@0600 LAB 02/06/17 06:00 Ordered CBC W/ AUTO DIFF DAILY@0600 LAB 02/07/17 06:00 Ordered CBC W/ AUTO DIFF DAILY@0600 LAB 02/08/17 06:00 Ordered CBC W/ AUTO DIFF Stat LAB 01/19/17 15:55 Completed COMPREHENSIVE METABOLIC PANEL DAILY@0600 LAB 01/20/17 06:00 Ordered COMPREHENSIVE METABOLIC PANEL DAILY@0600 LAB 01/21/17 06:00 Ordered COMPREHENSIVE METABOLIC PANEL DAILY@0600 LAB 01/22/17 06:00 Ordered COMPREHENSIVE METABOLIC PANEL DAILY@0600 LAB 01/23/17 06:00 Ordered COMPREHENSIVE METABOLIC PANEL DAILY@0600 LAB 01/24/17 06:00 Ordered COMPREHENSIVE METABOLIC PANEL DAILY@0600 LAB 01/25/17 06:00 Ordered COMPREHENSIVE METABOLIC PANEL DAILY@0600 LAB 01/26/17 06:00 Ordered COMPREHENSIVE METABOLIC PANEL DAILY@0600 LAB 01/27/17 06:00 Ordered COMPREHENSIVE METABOLIC PANEL DAILY@0600 LAB 01/28/17 06:00 Ordered COMPREHENSIVE METABOLIC PANEL DAILY@0600 LAB 01/29/17 06:00 Ordered COMPREHENSIVE METABOLIC PANEL DAILY@0600 LAB 01/30/17 06:00 Ordered COMPREHENSIVE METABOLIC PANEL DAILY@0600 LAB 01/31/17 06:00 Ordered COMPREHENSIVE METABOLIC PANEL DAILY@0600 LAB 02/01/17 06:00 Ordered COMPREHENSIVE METABOLIC PANEL DAILY@0600 LAB 02/02/17 06:00 Ordered COMPREHENSIVE METABOLIC PANEL DAILY@0600 LAB 02/03/17 06:00 Ordered COMPREHENSIVE METABOLIC PANEL DAILY@0600 LAB 02/04/17 06:00 Ordered COMPREHENSIVE METABOLIC PANEL DAILY@0600 LAB 02/05/17 06:00 Ordered COMPREHENSIVE METABOLIC PANEL DAILY@0600 LAB 02/06/17 06:00 Ordered COMPREHENSIVE METABOLIC PANEL DAILY@0600 LAB 02/07/17 06:00 Ordered COMPREHENSIVE METABOLIC PANEL DAILY@0600 LAB 02/08/17 06:00 Ordered COMPREHENSIVE METABOLIC PANEL Stat LAB 01/19/17 15:55 Completed CREATINE KINASE Q8H LAB 01/20/17 00:15 Ordered CREATINE KINASE Q8H LAB 01/20/17 08:15 Ordered CREATINE KINASE Stat LAB 01/19/17 15:55 Completed LACTIC ACID Stat LAB 01/19/17 15:55 Completed MANUAL DIFFERENTIAL Stat LAB 01/19/17 15:55 Completed TROPONIN I Q8H LAB 01/20/17 00:15 Ordered TROPONIN I Q8H LAB 01/20/17 08:15 Ordered TROPONIN I Stat LAB 01/19/17 15:55 Completed URINALYSIS C & S IF INDICATED Stat LAB 01/19/17 15:41 Uncollected Abiraterone Acetate [Zytiga] MEDS 01/20/17 10:00 Ordered 1,000 mg PO 1000 Aspirin [Aspirin] MEDS 01/20/17 09:00 Ordered 81 mg PO DAILY Atorvastatin Calcium [Atorvastatin Calcium] MEDS 01/20/17 09:00 Ordered 80 mg PO DAILY Ceftriaxone Sodium [Rocephin] 1 gm MEDS 01/20/17 09:00 Ordered 0.9 % Sodium Chloride [Sodium Chloride] 50 ml IV DAILY Gabapentin [Gabapentin] MEDS 01/20/17 09:00 Ordered 300 mg PO DAILY Hydrocodone Bit/Acetaminophen [[place] 7.5-325] MEDS 01/19/17 21:00 Ordered 1 each PO TID Metoprolol Tartrate [Metoprolol Tartrate] MEDS 01/20/17 09:00 Ordered 100 mg PO DAILY Morphine Sulfate [Ms Contin] MEDS 01/19/17 21:00 Ordered 15 mg PO BID Polyethylene Glycol 3350 [Miralax] MEDS 01/20/17 09:00 Ordered 17 gm LEFT EAR DAILY Potassium Chloride [Klor-Con 10] MEDS 01/20/17 09:00 Ordered 10 meq PO DAILY Sodium Chloride 0.9% [Sodium Chloride] 1,000 ml MEDS 01/19/17 18:30 Ordered IV 75 mls/hr Tamsulosin HCl [Tamsulosin HCl] MEDS 01/20/17 09:00 Ordered 0.4 mg PO DAILY CHEST, 1V AP ONLY Stat RADS 01/19/17 15:41 Completed Medications Generic Name Dose Route Start Last Admin Trade Name Freq PRN Reason Stop Dose Admin Ceftriaxone Sodium 1 gm/ 50 mls @ 75 mls/hr 01/20/17 09:00 Sodium Chloride IV DAILY AMMON Sodium Chloride 1,000 mls @ 75 mls/hr 01/19/17 18:30 Sodium Chloride IV .[id number] AMMON Non-Formulary Medication 1,000 mg 01/20/17 10:00 Abiraterone Acetate [Zytiga] PO 1000 AMMON Non-Formulary Medication 81 mg 01/20/17 09:00 Aspirin [Aspirin] PO DAILY [facility] Non-Formulary Medication 80 mg 01/20/17 09:00 Atorvastatin Calcium [Atorvastatin Calcium] PO DAILY [facility] Non-Formulary Medication 300 mg 01/20/17 09:00 Gabapentin [Gabapentin] PO DAILY [facility] Non-Formulary Medication 1 each 01/19/17 21:00 Hydrocodone Bit/Acetaminophen [[place] 7.5-325] PO TID [facility]MON Non-Formulary Medication 15 mg 01/19/17 21:00 Morphine Sulfate [Ms Contin] PO BID [facility] Non-Formulary Medication 17 gm 01/20/17 09:00 Polyethylene Glycol 3350 [Miralax] LEFT EAR DAILY [facility] Non-Formulary Medication 10 meq 01/20/17 09:00 Potassium Chloride [Klor-Con 10] PO DAILY [facility] Non-Formulary Medication 0.4 mg 01/20/17 09:00 Tamsulosin Hcl [Tamsulosin Hcl] PO DAILY [facility] Non-Formulary Medication 100 mg 01/20/17 09:00 Metoprolol Tartrate [Metoprolol Tartrate] PO DAILY [facility] Vital Signs: Temp Pulse Resp BP Pulse Ox 01/19/17 15:28 97.4 F L 85 20 164/90 H 100 Departure - Departure Time of Disposition: 18:16 Disposition: PLACED OBSERVATION Discharge Problem: Weakness Anemia Qualifiers: Anemia type: unspecified type Qualifier Code: (D64.9) Anemia, unspecified Instructions: Weakness (ED) Condition: Fair Pt referred to PMD for follow-up: No Additional Instructions: Please call your Family Physician as soon as possible to schedule a follow-up appointment. Allergies/Adverse Reactions: Allergies No Known Allergies Allergy (Verified 01/19/17 15:43) Home Medications: Ambulatory Orders Metoprolol Tartrate 100 mg PO DAILY 10/10/13 [place]-3 Acid Ethyl Esters [Lovaza] 2 cap PO BID 10/10/13 Potassium Chloride [Klor-Con 10] 10 meq PO DAILY 10/10/13 Tamsulosin HCl 0.4 mg PO DAILY 10/10/13 Hydrocodone Bit/Acetaminophen [[place] 7.5-325] 1 each PO TID 07/26/16 Linagliptin [Tradjenta] 5 mg PO DAILY 07/26/16 Multivit-Min/FA/Lycopene/Lut [Centrum Silver Tablet] 1 each PO DAILY 07/26/16 Aspirin 81 mg PO DAILY 10/31/16 Atorvastatin Calcium 80 mg PO DAILY 10/31/16 Gabapentin 300 mg PO DAILY 10/31/16 Meclizine HCl 25 mg PO TID 10/31/16 Morphine Sulfate [Ms Contin] 15 mg PO BID 10/31/16 Polyethylene Glycol 3350 [Miralax] 17 gm LEFT EAR DAILY 10/31/16 Abiraterone Acetate [Zytiga] 1,000 mg PO 1000 11/01/16
[2017-01-19] MEDS ORDERED: HUMULIN R SUBCUT STA (18:20)
[2017-01-19] MEDS ORDERED: SODIUM CHLORIDE 1,000 ML IV SCH (18:30)
[2017-01-19] MEDS ORDERED: HUMULIN R SUBCUT PRN (20:22)
[2017-01-19] MEDS ORDERED: NORCO 7.5-325 ONE (20:35)
[2017-01-19] MEDS ORDERED: MS CONTIN ONE (20:35)
[2017-01-19 20:43] VITALS: BMI 27.1
[2017-01-19] MEDS ORDERED: HYDROCODONE BIT PO SCH (21:00)
[2017-01-19] MEDS ORDERED: MORPHINE SULFATE 15 MG PO SCH (21:00)
[2017-01-19] MEDS ORDERED: ACETAMINOPHEN PO SCH (21:00)
[2017-01-20 00:38] LABS: TROPONIN I 0.027 ng/ml (0.0000-0.4000)
[2017-01-20 02:09] LABS: BILIRUBIN,URINE Negative (NEGATIVE); KETONES,URINE Negative (NEGATIVE); LEUKOCYTE ESTERASE ,URINE Negative (NEGATIVE); NITRITE,URINE Negative (NEGATIVE); PH,URINE 5.5 (5-9); PROTEIN,URINE Trace (NEGATIVE); URINE, BLOOD Negative (NEGATIVE)
[2017-01-20 02:11] LABS: ADD URINE MICROSCOPIC YES
[2017-01-20 05:13] LABS: HEMATOCRIT 26.2 % (42.0-52.0); HEMOGLOBIN 8.9 g/dl (14.0-18.0); MEAN CORPUSCULAR HEMOGLOBIN 30.5 pg (27.0-31.0); MEAN CORPUSCULAR VOLUME 89.7 fl (80.0-94.0); PLATELET COUNT 309 10^3/uL (140-440); RED BLOOD COUNT 2.92 10^6/ul (4.70-6.10)
[2017-01-20 05:26] LABS: ALBUMIN 2.4 g/dL (3.4-5.0); ALBUMIN/GLOBULIN RATIO 0.69; ANION GAP 15.3; BILIRUBIN,TOTAL 0.28 mg/dL (0.00-1.20); BUN/CREATININE RATIO 10.56; CALCIUM 7.8 mg/dL (8.2-10.2); CREATININE 1.23 mg/dL (0.60-1.10); POTASSIUM 3.3 mmol/L (3.5-5.1); TOTAL PROTEIN 5.9 g/dL (5.8-8.1)
[2017-01-20 05:39] LABS: ANISOCYTOSIS NOT PRESENT (NOT PRESENT)
[2017-01-20] MEDS ORDERED: NON-FORMULARY MEDICATION (Atorvastatin Calcium [Atorvastatin Calcium] 80 MG) PO SCH ×22 (09:00)
[2017-01-20] MEDS ORDERED: TAMSULOSIN HCL 0.4 MG PO SCH (09:00)
[2017-01-20] MEDS ORDERED: NON-FORMULARY MEDICATION (Potassium Chloride [Klor-Con 10] 10 MEQ) PO SCH ×22 (09:00)
[2017-01-20] MEDS ORDERED: NON-FORMULARY MEDICATION (Polyethylene Glycol 3350 [Miralax] 17 GM) PO SCH ×22 (09:00)
[2017-01-20] MEDS ORDERED: ROCEPHIN 1 GM in SODIUM CHLORIDE 50 ML IV SCH (09:00)
[2017-01-20] MEDS ORDERED: ACETAMINOPHEN PO SCH (09:00)
[2017-01-20] MEDS ORDERED: NON-FORMULARY MEDICATION (Gabapentin [Gabapentin] 300 MG) PO SCH (09:00)
[2017-01-20] MEDS ORDERED: HYDROCODONE BIT PO SCH (09:00)
[2017-01-20] MEDS ORDERED: NON-FORMULARY MEDICATION (Metoprolol Tartrate [Metoprolol Tartrate] 100 MG) PO SCH (09:00)
[2017-01-20] MEDS ORDERED: MORPHINE SULFATE 15 MG PO SCH (09:00)
[2017-01-20] MEDS ORDERED: ASPIRIN 81 MG PO SCH (09:00)
--- NOTE | 2017-01-20 09:45 | DS ---
DATE OF SERVICE: FINAL DIAGNOSIS: 1. Dehydration 2. Hypotension 3. Prostate caner with metastatic 4. Dyslipidemia 5. History of diabetes mellitus 6. History of hypertension DISCHARGE INSTRUCTIONS: The patient discharge home. Continue followup with Dr Kim. Continue any hypertension medication. Continue Flomax. Discontinue Tradjenta. Discontinue Atorvastatin.The patient has been taken off Tradjenta and Lipitor. He has been told in the past not take Lipitor but he has somehow continued to take Lipitor. MEDICATIONS AT DISCHARGE: Tamsulosin 0.4mg PO daily Potassium chloride 10 MEQ PO daily Lovaza 2 capsules PO twice a day Metoprolol tartrate 100mg PO daily [place] 7.5-325 PO three times a day Centrum Silver Tablet PO daily Miralax 17 grams left ear daily MS Contin 15mg PO twice a day Aspirin 81mg PO daily Gabapentin 300mg PO daily Meclizine HCL 25mg PO three times a day Zytiga 1,000mg PO 1000 DIET INSTRUCTIONS: The patient is advised to eat food containing potassium ACTIVITY: As much as tolerated SMOKING: Non-smoker DISEASE SPECIFIC EDUCATION: Medication change Plenty of fluids HOSPITAL COURSE: This 76 year old WHITE/ M was hospitalized 01/19/17. metastatic prostate cancer he is undergoing chemo therapy by Dr. Kim the patient was hospitalized yesterday because weakness and dehydration it was noted in the office.The patient was sent to ER for further evaluation the patient has leukocytosis from cancer he has been given iv fluids and feels lot of better. CONDITION: Stable PROGNOSIS: Poor SCRIBED BY: Cruz RIZZO scribed while in presence of service performed by Dr. CALOS VÁSQUEZ on 01/20/17 ([id number]) TIME SPENT: More than 60 minutes. LACY
[2017-01-20] MEDS ORDERED: ABIRATERONE ACETATE 1000 MG PO SCH (10:00)
[2017-01-20 12:14] VITALS: BP 141/72; TEMP 98.1
--- NOTE | 2017-01-20 14:15 | PCM.PROG ---
Attending Provider: ATTENDING PROVIDER: Dr. CALOS VÁSQUEZ DATE OF SERVICE: 01/20/17 SUBJECTIVE: This 76 year old WHITE/ M was hospitalized 01/19/17. metastatic prostate cancer he is undergoing chemo therapy by Dr. Kim the patient was hospitalized yesterday because weakness and dehydration it was noted in the office.The patient was sent to ER for further evaluation. The patient has leukocytosis from cancer he has been given IV fluids and feels lot of better. REVIEW OF SYSTEMS: CONSTITUTIONAL: No night sweats. No fatigue, malaise, lethargy. No fever or chills. HEENT: Eyes: No visual changes. No eye pain. No eye discharge. ENT: No runny nose. No epistaxis. No sinus pain. No odynophagia. No congestion. RESPIRATORY: No cough, no congestion. No hemoptysis. CARDIOVASCULAR: No angina symptoms. No CHF symptoms. No atypical chest pain for CAD. No palpitations. No shortness of breath. GASTROINTESTINAL: No abdominal pain. No nausea or vomiting. No diarrhea or constipation. No hematemesis. No hematochezia. GENITOURINARY: No urgency. No frequency. No dysuria. No hematuria. No obstructive symptoms. No discharge. No pain. No significant abnormal bleeding. MUSCULOSKELETAL: No musculoskeletal pain; no joint swelling. NEUROLOGICAL: Awake, alert, oriented to time, place and person. No headache. No neck pain. No syncope. No seizures. No dizziness. PSYCHIATRIC: Not anxious. No depression. No suicidal thoughts. No homicidal thoughts. SKIN: No rash. No lesions. No wounds. ENDOCRINE: No unexplained weight loss. No weight gain. HEMATOLOGIC/LYMPHATIC: No anemia. No purpura. No petechiae. No prolonged or excessive bleeding. No palpable lymph nodes. PHYSICAL EXAMINATION: GENERAL: The patient is awake, alert and oriented to time, place and person, lying in bed in no distress. VITAL SIGNS: Temperature 98.5 F, Pulse 90, Respiratory Rate 18, BP 132/71, Pulse Ox 98% HEENT: Head normocephalic, atraumatic. Eyes: Extraocular muscles are intact. Pupils are equal, round and reactive to light and accommodation. Ears: No lesions. Nose appeared normal. Throat: No exudate or erythema. NECK: Supple. No JVD, no carotid bruit. No lymphadenopathy or thyromegaly. LUNGS: Decreased breath sounds but clear to auscultation. Percussion note normal. Chest symmetrical. HEART: S1, S2, no S3. No murmurs. No cyanosis or clubbing. No ascites. Pulses: Dorsalis pedis and posterior tibial pulses +1 to +2 both sides. ABDOMEN: Soft. Non-tender. Bowel sounds active. No CVA tenderness. No mass felt. EXTREMITIES: No edema. Full range of motion of all extremities, equal. NEUROLOGIC: No focal deficit. Cranial nerves II through XII are grossly intact. No headache, no double vision or headache. SKIN: Not dry. Intact. Turgor-normal. Looks pale. LYMPHATIC: No palpable lymph nodes/no lymphedema. MUSCULOSKELETAL: Normal joints with no swelling. Muscle tone is normal. LAB REVIEW: 01/20/17 04:27 01/20/17 04:27 01/20/17 04:27: WBC 21.30 H D, RBC 2.92 L, Hgb 8.9 L, Hct 26.2 L, MCV 89.7, MCH 30.5, MCHC 34.0, RDW Coeff of Bryn 14.9 H, Plt Count 309, Neutrophils % (Manual) 81.0 H, Band Neutrophils % 10.0 H, Lymphocytes % (Manual) 4.0 L, Monocytes % ( Manual) 1.0, Metamyelocytes % 2.0, Myelocytes % 2.0 H, Sodium 136, Potassium 3.3 L, Chloride 109 H, Carbon Dioxide 15 L, Anion Gap 15.3, BUN 13, Creatinine 1.23 H, Estimated GFR (MDRD) 57.00, BUN/Creatinine Ratio 10.56, Glucose 90, Calcium 7.8 L, Total Bilirubin 0.28, AST 22, ALT 11 L, Alkaline Phosphatase 105 , Total Protein 5.9, Albumin 2.4 L, Globulin 3.5, Albumin/Globulin Ratio 0.69 01/20/17 02:00: Urine Color Yellow, Urine Clarity Clear, Urine pH 5.5, Ur Specific [place] 1.015, Urine Protein Trace, Urine Glucose (UA) Negative, Urine Ketones Negative, Urine Blood Negative, Urine Nitrite Negative, Urine Bilirubin Negative, Urine Urobilinogen 0.2, Ur Leukocyte Esterase Negative, Ur Squamous Epith Cells Not present 01/20/17 00:13: Total Creatine Kinase 33, Troponin I 0.0270 ASSESSMENT: 1. Prostate cancer with metastatic 2. Dehydration 3. Anemia PLAN: 1. The patient discharge home. 2. Continue followup with Dr Kim 3. Continue any hypertension medication 4. Continue Flomax 5. Discontinue Tradjenta 6. Discontinue atorvastatin 7. A1c Plan and coordination of the patient's care discussed in the presence of Honey Blender and nurse. EDUCATION: The patient is advised to eat food containing potassium CONDITION: Stable PROGNOSIS: Poor SCRIBED BY: Cruz RIZZO scribed while in presence of service performed by Dr. CALOS VÁSQUEZ on 01/20/17 ([id number])
== END 2017-01-20 14:00 | disposition home or self-care (01) ==
LOC: ED 15:26 → MEDSURG B 18:21
PROVIDERS: ADMIT Internal Medicine; ATTEND Internal Medicine
DX: R53.1 Weakness (principal); D64.9 Anemia, unspecified; I95.9 Hypotension, unspecified; E86.0 Dehydration; R42 Dizziness and giddiness; C61 Malignant neoplasm of prostate; E11.9 Type 2 diabetes mellitus without complications; E78.5 Hyperlipidemia, unspecified; Z79.84 Long term (current) use of oral hypoglycemic drugs; Z79.899 Other long term (current) drug therapy
CPT/HCPCS: 36415; 80053; 81001; 82550; 82962; 83036; 83605; 84484; 85007; 85025; 87040; 93005; 93010; 96360; 96361; 99283

== ENCOUNTER 2017-04-13 13:44 | Inpatient (IN) ==
[2017-04-13 14:43] LABS: BASOPHILS % (AUTO) 0.6 % (0.0-3.0); EOSINOPHILS # (AUTO) 0.2 K/ul (0.0-0.7); EOSINOPHILS % (AUTO) 2.6 % (0.0-7.0); HEMATOCRIT 25.2 % (42.0-52.0); HEMOGLOBIN 8.4 g/dl (14.0-18.0); IMMATURE GRANULOCYTE % (AUTO) 3.2 % (0.0-5.0); LYMPHOCYTES # (AUTO) 1.1 K/uL (0.60-3.4); LYMPHOCYTES % (AUTO) 15.4 (10.0-50.0); MEAN CORPUSCULAR HEMOGLOBIN 29.3 pg (27.0-31.0); MEAN CORPUSCULAR HGB CONC 33.3 (31.8-35.4); MEAN CORPUSCULAR VOLUME 87.8 fl (80.0-94.0); MONOCYTES # (AUTO) 0.4 K/uL (0.4-2.0); MONOCYTES % (AUTO) 6.5 (0-10); NEUTROPHILS # (AUTO) 4.9 K/ul (2.0-6.9); NEUTROPHILS % (AUTO) 71.7; PLATELET COUNT 490 10^3/uL (140-440); RED BLOOD COUNT 2.87 10^6/ul (4.70-6.10); WHITE BLOOD COUNT 6.82 K/ul (4.2-10.2)
[2017-04-13 15:10] LABS: ALANINE AMINOTRANSFERASE 15 U/L (12-78); ALBUMIN 2.1 g/dL (3.4-5.0); ALKALINE PHOSPHATASE 201 U/L (56-119); ANION GAP 17.5; ASPARTATE AMINO TRANSFERASE 34 U/L (15-37); BILIRUBIN,TOTAL 0.32 mg/dL (0.00-1.20); BLOOD UREA NITROGEN 17 mg/dL (7-18); BUN/CREATININE RATIO 12.87; CALCIUM 8.3 mg/dL (8.2-10.2); CARBON DIOXIDE 20 mmol/L (23-31); CHLORIDE 104 mmol/L (98-107); CREATINE KINASE 60 U/L; CREATININE 1.32 mg/dL (0.60-1.10); GLUCOSE 113 mg/dL (82-115); POTASSIUM 4.5 mmol/L (3.5-5.1); SODIUM 137 mmol/L (136-145); TOTAL PROTEIN 6.3 g/dL (5.8-8.1)
--- NOTE | 2017-04-13 15:29 | CT ---
EXAM: CT chest without contrast. HISTORY: Cough. Low blood pressure. COMPARISON: Radiograph 01/19/2017. Chest CT 03/03/2014. TECHNIQUE: Multiple axial images of the chest were obtained without intravenous contrast. Images w ere reformatted in the sagittal and coronal planes. FINDINGS: Left-sided chest port is present with tip terminating in the superior vena cava. 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 Heart size is normal. No pericardial effusion. Evaluation for lymphadenopa thy is limited by lack of intravenous contrast. Calcified mediastinal and right hilar lymph nodes a re present. Left apical nodule on axial image 12 is stable. Posterior right lower lobe consolidation on axial i mages 38-41, new from prior CT. Lungs otherwise clear save for minimal left basilar atelectasis boy ng the diaphragm. No pleural effusion or pneumothorax identified. There are old right-sided rib fractures. Sclerotic lesions seen within the T12, L1 and L2 vertebral bodies, incompletely imaged. Limited images of the upper abdomen demonstrate no acute finding. Re mark to abdominal CT report for details. IMPRESSION: 1. Posterior right lower lobe consolidation could represent atelectasis or pneumonia. Follow up wi thin 3 months recommended for reassessment. 2. Redemonstration of osseous metastatic disease.
--- NOTE | 2017-04-13 15:35 | CT ---
EXAM: CT ABDOMEN AND PELVIS HISTORY: Pain, low blood pressure TECHNIQUE: CT abdomen and pelvis without intravenous contrast. Images were reconstructed using 5 m m section thickness. Reformations were prepared. COMPARISON: 10/31/2016 FINDINGS: Diagnostic limitations exist without including contrast enhanced images. Cannot exclude mild fatty infiltration of the liver. No focal hepatic or splenic lesions identified. The gallbladder is mild ly distended. No evidence of gallbladder wall thickening or pericholecystic stranding. Moderate fa tty lobulation of the pancreas. There is a stable 1.3 cm relatively low attenuation lesion of the l eft adrenal gland probably representing adenoma although not reaching the 10 HU or lower threshold c haracteristically used for diagnosis. The right adrenal gland is normal. There is a stable indeter minate upper lateral left renal cortical mass measuring 1.8 cm. There is no hydronephrosis, nephroli thiasis or evidence of ureteral obstruction. Moderate atherosclerotic disease. No aneurysmal calib er of the aorta. Stomach is mildly distended with fluid and air. Normal appendix. Unremarkable bowel gas pattern. Mild distal colon diverticulosis. Urinary bladder is within normal limits. Punctate densities over the prostate suggesting treatment for prostate disease. No gross lymphadenopathy. No ventral abdominal wall hernia. Sclerotic bony metastases of the spine appear grossly stable most ly involving L2. See also same day CT thorax report. IMPRESSION: 1. Stable sclerotic bony metastases. 2. Left adrenal gland nodule is stable and relatively low in attenuation probably representing an a denoma. This can be followed by CT to assure stability. 3. Mild gallbladder distension, nonspecific. Correlate clinically. 4. Moderate atherosclerotic disease. 5. Minimal distal colon diverticulosis.
--- NOTE | 2017-04-13 16:46 | ED.PDOC ---
General ED Provider: Dr. CATRINA MCKENNA Chief Complaint: Weakness Stated Complaint: weakness Time Seen by Physician: 13:50 (seen with staff at all times denied pain) Mode of Arrival: Wheelchair Information Source: Patient, Other Exam Limitations: No limitations Primary Care Provider: CALOS VÁSQUEZ Nursing and Triage Documentation Reviewed and Agree: Yes (BP LOW IN OFFICE ) Neurological Complaint Exam - Weakness Complaint/Exam Last Known Well: WEAKNESS Onset: Gradual Duration: 1400 Timing: Constant Episodes Lasting: Hours Initial Severity: Mild Current Severity: Mild Character: Reports: Lightheaded, Weak Aggravating: Reports: None Alleviating: Reports: None Associated Signs and Symptoms: Denies: Nausea, Vomiting, Diaphoresis, Tinnitus, Chest pain, Short of air, Palpitations, Unsteady gait, GI blood loss, Visual changes, Decreased oral intake, Change in medication, Change in diet, OTC meds, Loss of balance Cardiac Risk Factors: Reports: Hypertension CVA Risk Factors: Reports: None Related Surgical History: Reports: None JVD Present: No Carotid Bruit Present: No Rectal Heme Positive: No Glascow Coma Scale (see protocol): 15 Nystagmus Present: No Gag Reflex Present: No Meningeal Signs Positive: No Focal Weakness: Present: None Focal Sensory Loss: Present: None Gait: Normal Differential Diagnoses: Hypovolemia Quality Indicators for Cardiac Chest Pain: EKG in 10min. Quality Indicators for AMI: EKG in 10min. Quality Indicator For Non-Traumatic Chest Pain/Syncope: EKG Performed Review of Systems - Review Of Systems Constitutional: Reports: Malaise, Weakness Eyes: Reports: No symptoms Ears, Nose, Mouth, Throat: Reports: No symptoms Respiratory: Reports: Cough Cardiac: Reports: No symptoms GI: Reports: Abdominal pain : Reports: No symptoms Musculoskeletal: Reports: No symptoms Skin: Reports: No symptoms Neurological: Reports: No symptoms Endocrine: Reports: No symptoms Hematologic/Lymphatic: Reports: No symptoms All Other Systems: Reviewed and Negative Past Medical History - Past Medical History Previously Healthy: No Endocrine: Reports: DM 2, Dyslipidemia Cardiovascular: Reports: Hypertension Respiratory: Reports: COPD Hematological: Reports: None Gastrointestinal: Reports: None Genitourinary: Reports: None Neuro/Psych: Reports: None Musculoskeletal: Reports: None Cancer: Reports: None, Other (PROSTATE) - Surgical History General Surgical History: Reports: None - Family History Family History: Reports: None - Social History Smoking Status: Former smoker Hx Substance Use: No Alcohol Screening: None - Immunizations Tetanus Shot up to Date: No Physical Exam - Physical Exam Appearance: Ill-appearing Ill-appearing: Moderate Pain Distress: Mild Eyes: HOLLY, EOMI, Conjunctiva clear ENT: Dry mucosa Respiratory: Airway patent, Breath sounds clear, Breath sounds equal, Respirations nonlabored Cardiovascular: RRR, Pulses normal, No rub, No murmur GI/: Soft, Nontender, No masses, Bowel sounds normal, No Organomegaly Musculoskeletal: Normal strength, ROM intact, No edema, No calf tenderness Skin: Warm, Dry, Normal color Neurological: Sensation intact, Motor intact, Reflexes intact, Cranial nerves intact, Alert, Oriented Psychiatric: Affect appropriate, Mood appropriate Interpretation - Radiology Interpretation Radiology Interpretation By: Radiologist Radiology Results: No acute changes Physician Notification - Case Discussed Physician Notified: FAHAD MINAYA Time of Notification: 16:46 Admit To: Inpatient Critical Care Note - Critical Care Note Total Time (mins): 0 Course - Course Hematology/Chemistry: 04/13/17 14:25 04/13/17 14:25 Orders, Labs, Meds: Lab Review 04/13/17 14:25 WBC 6.82 RBC 2.87 L Hgb 8.4 L Hct 25.2 L MCV 87.8 MCH 29.3 MCHC 33.3 RDW Coeff of Bryn 15.1 H Plt Count 490 H Immature Gran % (Auto) 3.2 Neut % (Auto) 71.7 Lymph % (Auto) 15.4 [place] % (Auto) 6.5 Eos % (Auto) 2.6 Baso % (Auto) 0.6 Immature Gran # (Auto) 0.2 Neut # 4.9 Lymph # 1.1 [place] # 0.4 Eos # 0.2 Baso # 0.0 Sodium 137 Potassium 4.5 Chloride 104 Carbon Dioxide 20 L Anion Gap 17.5 BUN 17 Creatinine 1.32 H Estimated GFR (MDRD) 53.00 BUN/Creatinine Ratio 12.87 Glucose 113 Lactic Acid 14.3 Calcium 8.3 Total Bilirubin 0.32 AST 34 ALT 15 Alkaline Phosphatase 201 H Total Creatine Kinase 60 Troponin I < 0.0100 Total Protein 6.3 Albumin 2.1 L Globulin 4.2 Albumin/Globulin Ratio 0.50 Procalcitonin 0.08 Orders Category Date Time Status EKG-(ED ONLY) Stat CARDIO 04/13/17 14:09 Completed BLOOD CULTURE Stat LAB 04/13/17 14:25 Received CBC W/ AUTO DIFF Stat LAB 04/13/17 14:25 Completed COMPREHENSIVE METABOLIC PANEL Stat LAB 04/13/17 14:25 Completed CREATINE KINASE Stat LAB 04/13/17 14:25 Completed LACTIC ACID Stat LAB 04/13/17 14:25 Completed PROCALCITONIN Stat LAB 04/13/17 14:25 Completed TROPONIN I Stat LAB 04/13/17 14:25 Completed URINALYSIS C & S IF INDICATED Stat LAB 04/13/17 14:[address] ABDOMEN/PELVIS WO CONTRAST Stat RADS 04/13/17 14:[address] CHEST W/O CONTRAST Stat RADS 04/13/17 14:08 Completed Vital Signs: Temp Pulse Resp BP Pulse Ox 04/13/17 15:18 100 H 16 57/39 L 04/13/17 15:10 79 114/57 L 04/13/17 13:44 97.8 F 83 16 148/81 H 95 Departure - Departure Time of Disposition: 16:46 Disposition: ADMITTED INPATIENT Discharge Problem: Orthostatic hypotension Anemia Qualifiers: Anemia type: unspecified type Qualifier Code: (D64.9) Anemia, unspecified Instructions: Weakness (ED) Condition: Good Pt referred to PMD for follow-up: Yes Allergies/Adverse Reactions: Allergies No Known Allergies Allergy (Verified 04/13/17 13:52) Home Medications: Ambulatory Orders Metoprolol Tartrate 100 mg PO DAILY 10/10/13 [place]-3 Acid Ethyl Esters [Lovaza] 2 cap PO BID 10/10/13 Potassium Chloride [Klor-Con 10] 10 meq PO DAILY 10/10/13 Tamsulosin HCl 0.4 mg PO DAILY 10/10/13 Hydrocodone Bit/Acetaminophen [[place] 7.5-325] 1 each PO TID 07/26/16 Multivit-Min/FA/Lycopene/Lut [Centrum Silver Tablet] 1 each PO DAILY 07/26/16 Aspirin 81 mg PO DAILY 10/31/16 Gabapentin 300 mg PO DAILY 10/31/16 Meclizine HCl 25 mg PO TID 10/31/16 Morphine Sulfate [Ms Contin] 15 mg PO BID 10/31/16 Polyethylene Glycol 3350 [Miralax] 17 gm LEFT EAR DAILY 10/31/16 Abiraterone Acetate [Zytiga] 1,000 mg PO 1000 11/01/16 Disposition Discussed With: Patient, Family
[2017-04-13] MEDS: SODIUM CHLORIDE 1,000 ML IV SCH (17:53)
[2017-04-13 18:59] LABS: BILIRUBIN,URINE Negative (NEGATIVE); KETONES,URINE Negative (NEGATIVE); LEUKOCYTE ESTERASE ,URINE Negative (NEGATIVE); NITRITE,URINE Negative (NEGATIVE); PROTEIN,URINE Negative (NEGATIVE); URINE, BLOOD Negative (NEGATIVE)
[2017-04-13 19:00] LABS: ADD URINE MICROSCOPIC NO
[2017-04-13 20:28] VITALS: BMI 24.8
[2017-04-13] MEDS ORDERED: ANTIVERT PO SCH (21:00)
[2017-04-13] MEDS ORDERED: ANTIVERT PO PRN (21:08)
[2017-04-13] MEDS: NORCO 7.5-325 PO SCH (21:12)
[2017-04-13] MEDS: MS CONTIN PO SCH (21:12)
[2017-04-13] MEDS ORDERED: XOPENEX 0.63 MG NEB ONE (23:50)
[2017-04-13] MEDS: XOPENEX 0.63 MG NEB SCH (23:50)
[2017-04-14 04:37] LABS: BASOPHILS % (AUTO) 0.7 % (0.0-3.0); EOSINOPHILS # (AUTO) 0.2 K/ul (0.0-0.7); EOSINOPHILS % (AUTO) 3.4 % (0.0-7.0); HEMOGLOBIN 8.1 g/dl (14.0-18.0); IMMATURE GRANULOCYTE % (AUTO) 2.7 % (0.0-5.0); LYMPHOCYTES # (AUTO) 0.9 K/uL (0.60-3.4); LYMPHOCYTES % (AUTO) 14.8 (10.0-50.0); MEAN CORPUSCULAR HEMOGLOBIN 29.6 pg (27.0-31.0); MEAN CORPUSCULAR HGB CONC 33.8 (31.8-35.4); MEAN CORPUSCULAR VOLUME 87.6 fl (80.0-94.0); MONOCYTES # (AUTO) 0.5 K/uL (0.4-2.0); MONOCYTES % (AUTO) 7.7 (0-10); NEUTROPHILS # (AUTO) 4.1 K/ul (2.0-6.9); NEUTROPHILS % (AUTO) 70.7; PLATELET COUNT 403 10^3/uL (140-440); RED BLOOD COUNT 2.74 10^6/ul (4.70-6.10); WHITE BLOOD COUNT 5.83 K/ul (4.2-10.2)
[2017-04-14 05:00] LABS: ALBUMIN 1.8 g/dL (3.4-5.0); ALBUMIN/GLOBULIN RATIO 0.47; ANION GAP 10.2; BILIRUBIN,TOTAL 0.24 mg/dL (0.00-1.20); BUN/CREATININE RATIO 13.76; CALCIUM 7.8 mg/dL (8.2-10.2); CREATININE 1.09 mg/dL (0.60-1.10); POTASSIUM 4.2 mmol/L (3.5-5.1); TOTAL PROTEIN 5.6 g/dL (5.8-8.1)
[2017-04-14] MEDS: XOPENEX 0.63 MG NEB SCH ×4 (05:16→22:42)
[2017-04-14] MEDS: SODIUM CHLORIDE 1,000 ML IV SCH (07:26)
[2017-04-14] MEDS ORDERED: NON-FORMULARY MEDICATION (Potassium Chloride [Klor-Con 10] 10 MEQ) PO SCH ×22 (09:00)
[2017-04-14] MEDS ORDERED: LOPRESSOR PO SCH (09:00)
[2017-04-14] MEDS ORDERED: NON-FORMULARY MEDICATION (Metoprolol Tartrate [Metoprolol Tartrate] 100 MG) PO SCH (09:00)
[2017-04-14] MEDS ORDERED: ROCEPHIN 1 GM in SODIUM CHLORIDE 50 ML IV ONE ×2 (09:13→18:00)
--- NOTE | 2017-04-14 09:31 | HP ---
DATE OF SERVICE: 04/13/17 REASON FOR HOSPITALIZATION: Hypotension with postural changes, frequent falls, dizziness and inability to ambulate. HISTORY OF PRESENT ILLNESS: The patient is a 76 year old white male came to the office with his with the above complaints. The patient was seen and examined and he looked pale. His systolic blood pressure on sitting position was 60. The patient's says that he has been feeling extremely dizzy and feels like he is going to pass out. The patient was advised to go to the emergency room where he could have stat labs like CBC, CMP and several other test. REVIEW OF SYSTEMS: CONSTITUTIONAL: No night sweats. Weakness and fatigue. No fever or chills. HEENT: Eyes: No visual changes. No eye pain. No eye discharge. ENT: No runny nose. No epistaxis. No sinus pain. No sore throat. No odynophagia. No ear pain. No congestion. RESPIRATORY: No cough, no congestion. No hemoptysis. CARDIOVASCULAR: No angina symptoms. No CHF symptoms. No atypical chest pain for CAD. No palpitations. Shortness of breath on minimal exertion. No PND. No Orthopnea. GASTROINTESTINAL: No abdominal pain. No nausea or vomiting. No diarrhea or constipation. No hematemesis. No hematochezia. Not good appetite lately. No melena GENITOURINARY: No urgency. No frequency. No dysuria. No hematuria. No obstructive symptoms. No discharge. No pain. No significant abnormal bleeding. MUSCULOSKELETAL: No musculoskeletal pain. No joint swelling. No arthritis. Mild aches and pain as usual. No unusual pains. NEUROLOGICAL: No headache. No neck pain. No syncope. No seizures. Dizziness feels like he is going to pass out. No energy. No double vision. PSYCHIATRIC: Not anxious. No depression. No suicidal thoughts. No homicidal thoughts. SKIN: No rash. No lesions. No wounds. ENDOCRINE: No unexplained weight loss. No weight gain. HEMATOLOGIC/LYMPHATIC: No anemia. No purpura. No petechiae. No prolonged or excessive bleeding. No palpable lymph nodes. PERSONAL/FAMILY/SOCIAL HISTORY: The patient is and lives with the , very stubborn. Non-smoker and no alcohol abuse. He does all activity of daily living. Very Stubborn but strong man. 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 He doesn't go to the followup as required but he has taken hormone treatments by Dr. Arnold. The patient's last PSA was close to 1.5. 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 The patient also has a lot of multiple medical problem. History of pulmonary embolism Hypertension Dyslipidemia Chronic lung disease He had stopped to taking all the medications. He used to be on in the past. Knee replacement done and recovered very well. MEDICATIONS: Lopressor Hormone treatment for C of the Prostate Antivert PRN Aspirin one a day ALLERGIES: No known allergies. PHYSICAL EXAMINATION: GENERAL: The patient is oriented to time, place and person and looks pale. VITAL SIGNS: Temperature 98, pulse 90 per minute, respiratory rate 15, blood pressure 70/50 sitting up. HEENT: Head normocephalic, atraumatic. Eyes: Extraocular muscles are intact. Pupils are equal, round and reactive to light and accommodation. Ears: No lesions. Nose appeared normal. Throat: No exudate or erythema. Sclarea not icteric. Looks pale. NECK: Supple. No JVD, no carotid bruit. No lymphadenopathy or thyromegaly. LUNGS: Decreased breath sounds but clear to auscultation. Percussion note normal. Chest symmetrical. HEART: S1, S2, no S3. No murmurs. No cyanosis or clubbing. No ascites. Pulses: Dorsalis pedis and posterior tibial pulses +1 bilaterally. ABDOMEN: Soft. Nontender. Bowel sounds active. No CVA tenderness. No mass felt. EXTREMITIES: No edema. Full range of motion of all extremities, equal. NEUROLOGIC: No focal deficit. Cranial nerves II through XII are grossly intact. No headache, no double vision or headache. SKIN: Not dry. Intact. Turgor - normal. LYMPHATIC: No palpable lymph nodes/no lymphedema. MUSCULOSKELETAL: Normal joints with no swelling. Muscle tone is normal. LABS: hgb 8.4, hct 25, WBC 6,800 normal differential, creatinine 1.3, BUN 17, potassium 4.5, liver profile negative. Alkaline phosphatase 201, lactic acid normal. The patient's CT scan of the chest shows right lower lobe consolidation probably atelectasis or pneumonia. Also shows Redemonstration of osseous metastatic. CT scan of the abdomen and pelvis shows stable sclerotic bony metastases, mild gallbladder distention. ASSESSMENT: 1. Postoral hypertension with dizziness, light headedness and near syncopal episode with weakness likely combination of dehydration and anemia 2. 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 Generalized atherosclerosis 4. Diverticulosis of colon 5. Left knee total replacement PLAN: 1. IV fluids 75cc per minute 2. Daily CBC and CMP 3. Encourage the patient to eat 4. Telemetry 5. EKG 6. Decrease to dose of Lopressor 7. The patient encouraged and advised to followup with Urologist at [facility] 8. May have to type and cross match and give him a couple units of packed red cells because the patient seem to be symptomatic from anemia 9. The patient is stubborn and noncompliant in the past year, stopped taking medication every time he felt bad. Used to be on quite a few medications for dyslipidemia, hypertension, pulmonary embolism, etc but he stopped taking them on his own. Very poor on followup on with other python consultant except me. CONDITION: Stable. TIME SPENT: More than 70 minutes. [facility]
[2017-04-14] MEDS: ASPIRIN CHEWABLE PO SCH (09:46)
[2017-04-14] MEDS: LOPRESSOR PO SCH (09:46)
[2017-04-14] MEDS: NEURONTIN PO SCH (09:47)
[2017-04-14] MEDS: MICRO-K CAP PO SCH (09:47)
[2017-04-14] MEDS: FLOMAX PO SCH (09:47)
[2017-04-14] MEDS: NORCO 7.5-325 PO SCH ×3 (09:51→21:30)
[2017-04-14] MEDS: MS CONTIN PO SCH ×2 (09:51→21:30)
--- NOTE | 2017-04-14 09:56 | PCM.PROG ---
Attending Provider: ATTENDING PROVIDER: Dr. CALOS VÁSQUEZ DATE OF SERVICE: 04/14/17 SUBJECTIVE: This 76 year old WHITE/ M was hospitalized 04/13/17. The patient is admitted with hypotension, dizziness, near falling episode and anemia. The patient has bone metastasis from cancer of the prostate and noncompliant with medications. He is feeling better. No symptoms of CHF or coronary insufficiency. REVIEW OF SYSTEMS: CONSTITUTIONAL: The patient looks pale. No night sweats. No fatigue, malaise, lethargy. No fever or chills. HEENT: Eyes: No visual changes. No eye pain. No eye discharge. ENT: No runny nose. No epistaxis. No sinus pain. No odynophagia. No congestion. RESPIRATORY: No cough, no congestion. No hemoptysis. CARDIOVASCULAR: No angina symptoms. No CHF symptoms. No atypical chest pain for CAD. No palpitations. No shortness of breath. GASTROINTESTINAL: No abdominal pain. No nausea or vomiting. No diarrhea or constipation. No hematemesis. No hematochezia. GENITOURINARY: No urgency. No frequency. No dysuria. No hematuria. No obstructive symptoms. No discharge. No pain. No significant abnormal bleeding. MUSCULOSKELETAL: No musculoskeletal pain; no joint swelling. NEUROLOGICAL: Awake, alert, oriented to time, place and person. No headache. No neck pain. No syncope. No seizures. No dizziness. PSYCHIATRIC: Not anxious. No depression. No suicidal thoughts. No homicidal thoughts. SKIN: No rash. No lesions. No wounds. ENDOCRINE: No unexplained weight loss. No weight gain. HEMATOLOGIC/LYMPHATIC: Anemia. No purpura. No petechiae. No prolonged or excessive bleeding. No palpable lymph nodes. PHYSICAL EXAMINATION: VITAL SIGNS: Temperature 98.3 F, Pulse 83, Respiratory Rate 16, BP 136/80, Pulse Ox 96% HEENT: Head normocephalic, atraumatic. Eyes: Extraocular muscles are intact. Pupils are equal, round and reactive to light and accommodation. Ears: No lesions. Nose appeared normal. Throat: No exudate or erythema. Pallor positive. NECK: Supple. No JVD, no carotid bruit. No lymphadenopathy or thyromegaly. LUNGS: Decreased breath sounds. Clear to auscultation. Percussion note normal. Chest symmetrical. HEART: S1, S2, no S3. No murmurs. No cyanosis or clubbing. No ascites. Pulses: Dorsalis pedis and posterior tibial pulses +1 to +2 both sides. ABDOMEN: Soft. Non-tender. Bowel sounds active. No CVA tenderness. No mass felt. EXTREMITIES: No edema. Full range of motion of all extremities, equal. NEUROLOGIC: No focal deficit. Cranial nerves II through XII are grossly intact. No headache, no double vision or headache. SKIN: Not dry. Intact. Turgor-normal. LYMPHATIC: No palpable lymph nodes/no lymphedema. MUSCULOSKELETAL: Normal joints with no swelling. Muscle tone is normal. LAB REVIEW: 04/14/17 04:20 04/14/17 04:20 04/14/17 04:20: WBC 5.83, RBC 2.74 L, Hgb 8.1 L, Hct 24.0 L, MCV 87.6, MCH 29.6 , MCHC 33.8, RDW Coeff of Bryn 15.2 H, Plt Count 403, Immature Gran % (Auto) 2.7 , Neut % (Auto) 70.7, Lymph % (Auto) 14.8, [place] % (Auto) 7.7, Eos % (Auto) 3.4, Baso % (Auto) 0.7, Immature Gran # (Auto) 0.2, Neut # 4.1, Lymph # 0.9, [place] # 0.5, Eos # 0.2, Baso # 0.0, Sodium 134 L, Potassium 4.2, Chloride 108 H, Carbon Dioxide 20 L, Anion Gap 10.2, BUN 15, Creatinine 1.09, Estimated GFR (MDRD) 66.00, BUN/Creatinine Ratio 13.76, Glucose 98, Calcium 7.8 L, Total Bilirubin 0.24, AST 27, ALT 13, Alkaline Phosphatase 176 H D, Total Protein 5.6 L, Albumin 1.8 L, Globulin 3.8, Albumin/Globulin Ratio 0.47 04/13/17 20:35: Total Creatine Kinase 54, Troponin I 0.0140 04/13/17 18:45: Urine Color Yellow, Urine Clarity Clear, Urine pH 6.0, Ur Specific [place] 1.020, Urine Protein Negative, Urine Glucose (UA) Negative, Urine Ketones Negative, Urine Blood Negative, Urine Nitrite Negative, Urine Bilirubin Negative, Urine Urobilinogen 0.2, Ur Leukocyte Esterase Negative ASSESSMENT: 1. Severe postural hypotension and severe anemia 2. CA of the prostate with bone mets PLAN: 1. Type and cross 2 units of PRBC, transfuse 2. Echocardiogram to evaluate LV function 3. IV fluids 4. Monitor CBC and CMP 5. The patient is noncompliant. He decides on his own what medications to take and when to stop them; self-directed medical care. The patient again strongly advised to followup with [facility] urologist as he stopped taking medications for cancer of the prostate. Plan and coordination of the patient's care discussed in the presence of Auction Assistant and nurse. CONDITION: Stable PROGNOSIS: Poor. SCRIBED BY: STEVO RESENDIZ Tenoner Operator scribed while in presence of service performed by Dr. CALOS VÁSQUEZ on 04/14/17 ([id number])
[2017-04-14] MEDS: ABIRATERONE ACETATE 1000 MG PO SCH (10:00)
[2017-04-14 18:10] LABS: HEMATOCRIT 31.5 % (42.0-52.0); HEMOGLOBIN 10.7 g/dl (14.0-18.0)
[2017-04-15] MEDS: SODIUM CHLORIDE 1,000 ML IV SCH (02:18)
[2017-04-15 05:11] LABS: BASOPHILS # (AUTO) 0.1 K/uL (0-0.2); BASOPHILS % (AUTO) 0.7 % (0.0-3.0); EOSINOPHILS # (AUTO) 0.3 K/ul (0.0-0.7); EOSINOPHILS % (AUTO) 3.7 % (0.0-7.0); HEMOGLOBIN 10.6 g/dl (14.0-18.0); IMMATURE GRANULOCYTE % (AUTO) 2.3 % (0.0-5.0); LYMPHOCYTES # (AUTO) 1.4 K/uL (0.60-3.4); LYMPHOCYTES % (AUTO) 19.7 (10.0-50.0); MEAN CORPUSCULAR HEMOGLOBIN 28.9 pg (27.0-31.0); MEAN CORPUSCULAR HGB CONC 34.2 (31.8-35.4); MEAN CORPUSCULAR VOLUME 84.5 fl (80.0-94.0); MONOCYTES # (AUTO) 0.6 K/uL (0.4-2.0); MONOCYTES % (AUTO) 7.8 (0-10); NEUTROPHILS # (AUTO) 4.8 K/ul (2.0-6.9); NEUTROPHILS % (AUTO) 65.8; PLATELET COUNT 399 10^3/uL (140-440); RED BLOOD COUNT 3.67 10^6/ul (4.70-6.10)
[2017-04-15] MEDS: XOPENEX 0.63 MG NEB SCH ×2 (05:22→11:20)
[2017-04-15 05:28] LABS: ALBUMIN 1.8 g/dL (3.4-5.0); ALBUMIN/GLOBULIN RATIO 0.46; ANION GAP 13.8; BILIRUBIN,TOTAL 0.35 mg/dL (0.00-1.20); BUN/CREATININE RATIO 15.3; CREATININE 0.98 mg/dL (0.60-1.10); POTASSIUM 4.8 mmol/L (3.5-5.1); TOTAL PROTEIN 5.7 g/dL (5.8-8.1)
[2017-04-15 06:34] VITALS: BP 142/76; TEMP 98.4
[2017-04-15] MEDS ORDERED: MS CONTIN PO PRN (08:29)
[2017-04-15] MEDS: FLOMAX PO SCH (08:52)
[2017-04-15] MEDS: ASPIRIN CHEWABLE PO SCH (08:52)
[2017-04-15] MEDS: LOPRESSOR PO SCH (08:53)
[2017-04-15] MEDS: NEURONTIN PO SCH (08:54)
[2017-04-15] MEDS: MICRO-K CAP PO SCH (08:55)
[2017-04-15] MEDS: NORCO 7.5-325 PO SCH (08:55)
[2017-04-15] MEDS ORDERED: TRADJENTA PO SCH (09:00)
[2017-04-15] MEDS: ABIRATERONE ACETATE 1000 MG PO SCH (09:00)
--- NOTE | 2017-04-17 12:12 | ECHO2D ---
Date of Exam: 04/14/17 Ordering Physician: CALOS VÁSQUEZ Reason for Echo: POSTURAL HYPOTENSION, SOB M-Mode Normal Adult Results LV Dimensions Normal Adult Results AoV Opening excursions >1.6 >1.6 LVEDD-base- 3.5-5.8 5.7 Ao root dimensions 2.0-3.7 3.3 LVESD-base- 3.1-4.6 L. Atrium dimensions 1.9-3.8 4.2 Post. Wall thickness 0.8-1.1 1.2 IV septum (thickness) 0.7-1.2 1.2 Post. Wall excursion 0.72-1.3 NORMAL Septal motion 0.5 Systolic motion R. Ventricular cavity 1.5-2.0 NORMAL LVEF 60% 44% Paradoxical septal wall motion NORMAL 2-D : MILDLY HYPOKINETIC SEPTUM--NORMAL VALVES--NO EFFUSION, NO THROMBUS, ENLARGED LEFT ATRIAL CAVITY--BORDERLINE LEFT VENTRICLE CAVITY M-MODE: MV: NORMAL AV: NORMAL TV: NORMAL PV: CHAMBER SIZE: ENLARGED LEFT ATRIAL CAVITY--BORDERLINE LEFT VENTRICLE CAVITY WALL MOTION: HYPOKINETIC SEPTUM PERICARDIUM: NORMAL INTERPRETATION: 1. LEFT VENTRICULAR HYPERTROPHY WITH ENLARGED LEFT ATRIAL CAVITY 2. LEFT VENTRICLE CAVITY BORDERLINE ENLARGED 3. HYPOKINETIC SEPTUM LVEF-44% 4. NORMAL VALVES MTDD
--- NOTE | 2017-04-17 15:17 | PN ---
DATE OF SERVICE: 04/15/17 SUBJECTIVE: The patient is a 76 year old white male hospitalized with hypotension. The patient's hypotension was mostly postural but again his blood pressure was noted to be 60 sitting up in the office. He was light headed, ataxic. REVIEW OF SYSTEMS: CONSTITUTIONAL: No night sweats. No fatigue, malaise, lethargy. No fever or chills. HEENT: Eyes: No visual changes. No eye pain. No eye discharge. ENT: No runny nose. No epistaxis. No sinus pain. No sore throat. No odynophagia. No congestion. RESPIRATORY: No cough, no congestion. No hemoptysis. CARDIOVASCULAR: No angina symptoms. No CHF symptoms. No atypical chest pain for CAD. No palpitations. No shortness of breath. GASTROINTESTINAL: No abdominal pain. No nausea or vomiting. No diarrhea or constipation. No hematemesis. No hematochezia. Appetite has improved. GENITOURINARY: No urgency. No frequency. No dysuria. No hematuria. No obstructive symptoms. No discharge. No pain. No significant abnormal bleeding. MUSCULOSKELETAL: No musculoskeletal pain; no joint swelling. NEUROLOGICAL: No headache. No neck pain. No syncope. No seizures. No dizziness. PSYCHIATRIC: Not anxious. No depression. No suicidal thoughts. No homicidal thoughts. SKIN: No rash. No lesions. No wounds. ENDOCRINE: No unexplained weight loss. No weight gain. HEMATOLOGIC/LYMPHATIC: No anemia. No purpura. No petechiae. No prolonged or excessive bleeding. No palpable lymph nodes. PHYSICAL EXAMINATION: GENERAL: The patient is oriented to time, place and person. VITAL SIGNS: Temperature 98.4, pulse 80, respiratory rate 17, blood pressure 142/76 and pulse ox 97%. HEENT: Head normocephalic, atraumatic. Eyes: Extraocular muscles are intact. Pupils are equal, round and reactive to light and accommodation. Ears: No lesions. Nose appeared normal. Throat: No exudate or erythema. NECK: Supple. No JVD, no carotid bruit. No lymphadenopathy or thyromegaly. LUNGS: Decreased breath sounds but clear to auscultation. Percussion note normal. Chest symmetrical. HEART: S1, S2, no S3. No murmurs. No cyanosis or clubbing. No ascites. Pulses: Dorsalis pedis and posterior tibial pulses +1 to +2 both sides. ABDOMEN: Soft. Nontender. Bowel sounds active. No CVA tenderness. No mass felt. EXTREMITIES: No edema. Full range of motion of all extremities, equal. NEUROLOGIC: No focal deficit. Cranial nerves II through XII are grossly intact. No headache, no double vision or headache. SKIN: Not dry. Intact. Turgor - normal. LYMPHATIC: No palpable lymph nodes/no lymphedema. MUSCULOSKELETAL: Normal joints with no swelling. Muscle tone is normal. LABS: Hgb 10.6, hct 31, WBC 7,300 normal differential, creatinine 0.9, BUN 15, potassium 4.8 ASSESSMENT: 1. Hypotension, resolved 2. Anemia, mild to moderate 3. Bone Mets from prostatic cancer 4. History of hypertensive PLAN: 1. Strongly advised to followup with Dr. Kim and the Urologist 2. The patient has declined to go to any Urologist, he agreed to go to Dr. Kim 3. The patient's discharge medication will be Metoprolol 100mg half a tablet PO daily and Ferrous Sulfate 325mg PO twice a day. CONDITION: Stable. TIME SPENT: More than 30 minutes. Plan and coordination of the patient's care discussed in the presence of nurse. LACY
--- NOTE | 2017-04-17 15:35 | DS ---
DATE OF SERVICE: 04/15/17 FINAL DIAGNOSIS: 1. Hypotension, combination of dehydration and anemia 2. Anemia secondary to metastatic disease of the bone from C of the prostate. 3. C of the Prostate with bone Mets. 4. History of hypertension DISCHARGE INSTRUCTIONS: The patient is advised to continue all the medications given by Dr. Kim. Strongly advised to followup with Dr. Kim and Urologist. The patient declined to go to any Urologist. Advised to come back on Monday or Monday in next three to five days on followup. MEDICATIONS AT DISCHARGE: Tamsulosin 0.4mg PO daily [place] 7.5-325 PO three times a day Miralax 17 gram PO daily MS Contin 15mg PO twice a day PRN Aspirin 81mg PO daily Gabapentin 300mg PO daily Meclizine 25mg PO three times a day Zytiga 1,000mg PO 1000 Lomotil 2.5 PO PRN Tradjenta 5mg PO daily Sukh 10-40mg PO daily NEW PRESCRIPTIONS: Metoprolol 100mg half tablet PO daily Ferrous Sulfate 325mg PO twice a day DIET INSTRUCTIONS: Regular ACTIVITY: Activity as tolerated SMOKING: Former smoker DISEASE SPECIFIC EDUCATION: Medications Followup Metastatic disease Anemia Fall precautions HOSPITAL COURSE: The patient is a 76 year old white male hospitalized with hypotension with blood pressure of 60. The patient had severe postoral change in the blood pressure also along with it. The patient was kind of dehydrated and had anemia with hgb of 8.1 with hct 24. The patient was given a couple of units of packed red cells. He felt a lot better and the dizziness and lightheadedness subsided. Appetite improved and his strength improved. His color looked a lot better. He was up and about. The patient was explained about his Metastatic disease going to the spine and other areas. The patient was advised to use walker or cane. He was also explained that if he falls he may fracture his spine and get paralyzed. The patient is very suborn and doesn't follow any instructions. He takes his medications as he pleases. More or less his medical care is self directed. His knows about it and is helpless. This patient was given blood transfusion 8.1 gram per decaliter because of symptomatic anemia with hypotension, weakness, poor appetite. Echocardiogram that was done of discharge showed LVH, enlarged LA cavity with normal LV contractility and normal valves. CONDITION: Stable. TIME SPENT: More than 60 minutes. MTDD
--- NOTE | 2017-04-17 15:44 | PN ---
04/13/17: Level 5 04/14/17: Intermediate 04/15/17: D as in discharge, extensive MTDD
== END 2017-04-15 11:45 | disposition home or self-care (01) | DRG 312 ==
LOC: ED 13:44 → MEDSURG B 17:01 → UNDOADMIN 17:01
PROVIDERS: ADMIT Internal Medicine; ATTEND Internal Medicine
PROC: 30243N1 Transfusion of Nonautologous Red Blood Cells into Central Vein, Percutaneous Approach (ICD-10-PCS; principal; 2017-04-14)
PROC: 30243N1 Transfusion of Nonautologous Red Blood Cells into Central Vein, Percutaneous Approach (ICD-10-PCS; 2017-04-14)
DX: I95.1 Orthostatic hypotension (principal); C79.51 Secondary malignant neoplasm of bone; E86.0 Dehydration; D64.9 Anemia, unspecified; C61 Malignant neoplasm of prostate; I51.7 Cardiomegaly; I10 Essential (primary) hypertension; E11.9 Type 2 diabetes mellitus without complications; R53.1 Weakness; R10.9 Unspecified abdominal pain; Z91.14 Patient's other noncompliance with medication regimen; Z79.899 Other long term (current) drug therapy; Z79.84 Long term (current) use of oral hypoglycemic drugs; Z95.828 Presence of other vascular implants and grafts
CPT/HCPCS: 36415; 36430; 80053; 81001; 82550; 83605; 84145; 84484; 85014; 85018; 85025; 86850; 86900; 86922; 87040; 93005; 93010; 94640; 96361; 99223; 99232; 99239; 99284

== ENCOUNTER 2017-04-24 10:58 | Inpatient (IN) ==
[2017-04-24 11:27] LABS: BASOPHILS # (AUTO) 0.1 K/uL (0-0.2); BASOPHILS % (AUTO) 0.5 % (0.0-3.0); EOSINOPHILS # (AUTO) 0.1 K/ul (0.0-0.7); EOSINOPHILS % (AUTO) 1.2 % (0.0-7.0); HEMATOCRIT 32.1 % (42.0-52.0); HEMOGLOBIN 10.8 g/dl (14.0-18.0); LYMPHOCYTES # (AUTO) 1.3 K/uL (0.60-3.4); LYMPHOCYTES % (AUTO) 13.4 (10.0-50.0); MEAN CORPUSCULAR HEMOGLOBIN 28.7 pg (27.0-31.0); MEAN CORPUSCULAR HGB CONC 33.6 (31.8-35.4); MEAN CORPUSCULAR VOLUME 85.4 fl (80.0-94.0); MONOCYTES # (AUTO) 0.6 K/uL (0.4-2.0); MONOCYTES % (AUTO) 6.2 (0-10); NEUTROPHILS # (AUTO) 7.1 K/ul (2.0-6.9); NEUTROPHILS % (AUTO) 74.7; PLATELET COUNT 482 10^3/uL (140-440); RED BLOOD COUNT 3.76 10^6/ul (4.70-6.10); WHITE BLOOD COUNT 9.45 K/ul (4.2-10.2)
[2017-04-24 11:47] LABS: PARTIAL THROMBOPLASTIN TIME 32.5 SEC (23.9-40.0); PROTHROMBIN TIME 11.1 SEC (9.3-11.0)
--- NOTE | 2017-04-24 11:52 | DI ---
Exam: Chest one-view. HISTORY: Cough. Comparison: 01/19/2017. Findings: AP portable image of the chest is submitted, the costophrenic angles have been excluded f rom this image. The lungs appear well expanded with mild linear atelectasis or scarring at the left lung base. There is no pneumothorax or edema. The cardiac silhouette is within normal limits of s ize. The thoracic aorta is partially calcified. Calcified granulomata are noted. There is a Port- A-Cath overlying the left chest. Intact sternal wires are in noted. The skeletal structures are un changed. Impressions: Stable Port-A-Cath and findings of prior sternotomy. Atherosclerosis. No pneumothorax, edema or lobar consolidation. Very mild linear atelectasis or scarring in the left lung base. The costophrenic angles have been excluded from this study.
--- NOTE | 2017-04-24 11:54 | CT ---
EXAM: CT abdomen pelvis without contrast HISTORY: Abdominal pain COMPARISON: CT abdomen pelvis 04/13/2017 and 10/31/2016 TECHNIQUE: Serial axial images of the abdomen pelvis were performed from the lung bases through the inferior pelvis without contrast. These were viewed in multiple planes. FINDINGS: The lung bases are clear. Evaluation is limited due to lack of contrast. The liver is diffusely low in attenuation. The gall bladder is minimally distended. There is no stone. There is a left adrenal nodule measuring 1.7 cm in diameter with Hounsfield units of two suggestive of adenoma. There is a peripherally calcified exophytic lesion off the inferior posterior left renal pole measuring 1.7 cm in diameter which is st able since prior examination. The right kidney is normal. The pancreas demonstrates mild fatty inf iltration. Spleen is unremarkable. The stomach and small bowel in the abdomen pelvis are unremarkable. The appendix is normal. The co kristina demonstrates multiple diverticuli. Urinary bladder is partially distended. There are metallic densities in the prostate. There is moderate atherosclerotic disease of the aorta. The osseous str uctures demonstrate sclerotic appearance at L2 with superior endplate deformity unchanged from prior exam. There is additional stable area of sclerosis at T12 and L1. IMPRESSION: 1. No acute intra-abdominal or pelvic process. 2. Stable sclerotic bone metastases with no acute compression fracture. 3. Left adrenal nodule is unchanged from prior examination with Hounsfield units consistent with an adenoma. 4. Mild gallbladder distension with no internal stones. 5. Moderate atherosclerotic disease. 6. Exophytic peripherally calcified lesion off the left kidney unchanged in comparison to most rece nt study. Dedicated renal ultrasound versus MRI is recommended to further evaluate.
[2017-04-24 11:56] LABS: ALBUMIN/GLOBULIN RATIO 0.43; ANION GAP 15.9; BILIRUBIN,TOTAL 0.46 mg/dL (0.00-1.20); BUN/CREATININE RATIO 16.17; CALCIUM 8.7 mg/dL (8.2-10.2); CREATININE 1.36 mg/dL (0.60-1.10); POTASSIUM 4.9 mmol/L (3.5-5.1); TOTAL PROTEIN 6.7 g/dL (5.8-8.1); TROPONIN I 0.018 ng/ml (0.0000-0.4000)
--- NOTE | 2017-04-24 12:39 | ED.PDOC ---
General ED Provider: Dr. CATRINA MCKENNA Chief Complaint: Dizziness Stated Complaint: DIZZINESS Time Seen by Physician: 11:00 Mode of Arrival: Wheelchair Information Source: Patient Exam Limitations: No limitations Primary Care Provider: CALOS VÁSQUEZ Nursing and Triage Documentation Reviewed and Agree: Yes Neurological Complaint Exam - Dizziness Complaint/Exam Onset: Gradual Duration: 11 AM Timing: Constant Episodes Lasting: Hours Initial Severity: Moderate Current Severity: Moderate Alleviating: Reports: None Associated Signs and Symptoms: Denies: Nausea, Vomiting, Diaphoresis, Tinnitus, Chest pain, Short of air, Palpitations, Unsteady gait, GI blood loss, Visual changes, Decreased oral intake, Change in medication, Change in diet, OTC meds, Loss of balance Related History: Similar episode Cardiac Risk Factors: Reports: None CVA Risk Factors: Reports: None JVD Present: No Carotid Bruit Present: No Rectal Heme Positive: No Glascow Coma Scale (see protocol): 15 Nystagmus Present: No Gag Reflex Present: No Meningeal Signs Positive: No Focal Weakness: Present: None Focal Sensory Loss: Present: None Gait: Normal Romberg Test Positive: No Babinski Sign: Negative Right, Negative Left Differential Diagnoses: Hypovolemia, Metabolic abnormalities, Vasovagal reaction Quality Indicators for Cardiac Chest Pain: EKG in 10min. Quality Indicators for AMI: EKG in 10min. Review of Systems - Review Of Systems Constitutional: Reports: Malaise, Weakness Eyes: Reports: No symptoms Ears, Nose, Mouth, Throat: Reports: No symptoms Respiratory: Reports: No symptoms Cardiac: Reports: No symptoms GI: Reports: No symptoms : Reports: No symptoms Musculoskeletal: Reports: No symptoms Skin: Reports: No symptoms Neurological: Reports: No symptoms Endocrine: Reports: No symptoms Hematologic/Lymphatic: Reports: No symptoms All Other Systems: Reviewed and Negative Past Medical History - Past Medical History Previously Healthy: No Endocrine: Reports: DM 2, Dyslipidemia Cardiovascular: Reports: Hypertension Respiratory: Reports: COPD Hematological: Reports: None Gastrointestinal: Reports: None Genitourinary: Reports: None Neuro/Psych: Reports: None Musculoskeletal: Reports: None Cancer: Reports: None, Other (PROSTATE) - Surgical History General Surgical History: Reports: None - Family History Family History: Reports: None - Social History Smoking Status: Former smoker Hx Substance Use: No Alcohol Screening: None Physical Exam - Physical Exam Appearance: Well-appearing, No pain distress, Well-nourished Eyes: HOLLY, EOMI, Conjunctiva clear ENT: Ears normal, Nose normal, Oropharynx normal Respiratory: Airway patent, Breath sounds clear, Breath sounds equal, Respirations nonlabored Cardiovascular: RRR, Pulses normal, No rub, No murmur GI/: Soft, Nontender, No masses, Bowel sounds normal, No Organomegaly Musculoskeletal: Normal strength, ROM intact, No edema, No calf tenderness Skin: Warm, Dry, Normal color Neurological: Sensation intact, Motor intact, Reflexes intact, Cranial nerves intact, Alert, Oriented Psychiatric: Affect appropriate, Mood appropriate Interpretation - Radiology Interpretation Radiology Interpretation By: Radiologist Radiology Results: No acute changes Exam Interpreted: CT Scan Physician Notification - Case Discussed Physician Notified: VÁSQUEZ Time of Notification: 12:38 Critical Care Note - Critical Care Note Total Time (mins): 0 Course - Course Hematology/Chemistry: 04/24/17 11:20 04/24/17 11:20 Orders, Labs, Meds: Lab Review 04/24/17 11:20 WBC 9.45 RBC 3.76 L Hgb 10.8 L Hct 32.1 L MCV 85.4 MCH 28.7 MCHC 33.6 RDW Coeff of Bryn 15.9 H Plt Count 482 H Immature Gran % (Auto) 4.0 Neut % (Auto) 74.7 Lymph % (Auto) 13.4 [place]gg % (Auto) 6.2 Eos % (Auto) 1.2 Baso % (Auto) 0.5 Immature Gran # (Auto) 0.4 Neut # 7.1 H Lymph # 1.3 Gregg # 0.6 Eos # 0.1 Baso # 0.1 PT 11.1 H INR 1.09 APTT 32.5 Sodium 132 L Potassium 4.9 Chloride 103 Carbon Dioxide 18 L Anion Gap 15.9 BUN 22 H Creatinine 1.36 H Estimated GFR (MDRD) 51.00 BUN/Creatinine Ratio 16.17 Glucose 129 H Lactic Acid 17.3 Calcium 8.7 Total Bilirubin 0.46 AST 31 ALT 17 Alkaline Phosphatase 255 H Total Creatine Kinase 71 Troponin I 0.0180 Total Protein 6.7 Albumin 2.0 L Globulin 4.7 Albumin/Globulin Ratio 0.43 Procalcitonin 0.35 Orders Category Date Time Status ADMIT PATIENT INPATIENT .TO [facility] (MONITORED BED) ADMISSION 04/24/17 12: 30 Ordered EKG-(ED ONLY) Stat CARDIO 04/24/17 11:07 Completed EKG-(IP & OP ONLY) DAILY CARDIO 04/25/17 06:00 Ordered EKG-(IP & OP ONLY) DAILY CARDIO 04/26/17 06:00 Ordered EKG-(IP & OP ONLY) DAILY CARDIO 04/27/17 06:00 Ordered ACTIVITY .Complete BR CARE 04/24/17 12:30 Ordered TELEMETRY MONITORING TELE CARE 04/24/17 12:32 Ordered VITAL SIGNS Q8HR CARE 04/24/17 12:30 Ordered REGULAR DIET DIETARY 04/24/17 Lunch Ordered BLOOD CULTURE Stat LAB 04/24/17 11:20 Received CBC W/ AUTO DIFF DAILY@0600 LAB 04/25/17 06:00 Ordered CBC W/ AUTO DIFF DAILY@0600 LAB 04/26/17 06:00 Ordered CBC W/ AUTO DIFF DAILY@0600 LAB 04/27/17 06:00 Ordered CBC W/ AUTO DIFF DAILY@0600 LAB 04/28/17 06:00 Ordered CBC W/ AUTO DIFF DAILY@0600 LAB 04/29/17 06:00 Ordered CBC W/ AUTO DIFF DAILY@0600 LAB 04/30/17 06:00 Ordered CBC W/ AUTO DIFF DAILY@0600 LAB 05/01/17 06:00 Ordered CBC W/ AUTO DIFF DAILY@0600 LAB 05/02/17 06:00 Ordered CBC W/ AUTO DIFF DAILY@0600 LAB 05/03/17 06:00 Ordered CBC W/ AUTO DIFF DAILY@0600 LAB 05/04/17 06:00 Ordered CBC W/ AUTO DIFF DAILY@0600 LAB 05/05/17 06:00 Ordered CBC W/ AUTO DIFF DAILY@0600 LAB 05/06/17 06:00 Ordered CBC W/ AUTO DIFF DAILY@0600 LAB 05/07/17 06:00 Ordered CBC W/ AUTO DIFF DAILY@0600 LAB 05/08/17 06:00 Ordered CBC W/ AUTO DIFF DAILY@0600 LAB 05/09/17 06:00 Ordered CBC W/ AUTO DIFF DAILY@0600 LAB 05/10/17 06:00 Ordered CBC W/ AUTO DIFF DAILY@0600 LAB 05/11/17 06:00 Ordered CBC W/ AUTO DIFF DAILY@0600 LAB 05/12/17 06:00 Ordered CBC W/ AUTO DIFF DAILY@0600 LAB 05/13/17 06:00 Ordered CBC W/ AUTO DIFF DAILY@0600 LAB 05/14/17 06:00 Ordered CBC W/ AUTO DIFF Stat LAB 04/24/17 11:20 Completed COMPREHENSIVE METABOLIC PANEL DAILY@0600 LAB 04/25/17 06:00 Ordered COMPREHENSIVE METABOLIC PANEL DAILY@0600 LAB 04/26/17 06:00 Ordered COMPREHENSIVE METABOLIC PANEL DAILY@0600 LAB 04/27/17 06:00 Ordered COMPREHENSIVE METABOLIC PANEL DAILY@0600 LAB 04/28/17 06:00 Ordered COMPREHENSIVE METABOLIC PANEL DAILY@0600 LAB 04/29/17 06:00 Ordered COMPREHENSIVE METABOLIC PANEL DAILY@0600 LAB 04/30/17 06:00 Ordered COMPREHENSIVE METABOLIC PANEL DAILY@0600 LAB 05/01/17 06:00 Ordered COMPREHENSIVE METABOLIC PANEL DAILY@0600 LAB 05/02/17 06:00 Ordered COMPREHENSIVE METABOLIC PANEL DAILY@0600 LAB 05/03/17 06:00 Ordered COMPREHENSIVE METABOLIC PANEL DAILY@0600 LAB 05/04/17 06:00 Ordered COMPREHENSIVE METABOLIC PANEL DAILY@0600 LAB 05/05/17 06:00 Ordered COMPREHENSIVE METABOLIC PANEL DAILY@0600 LAB 05/06/17 06:00 Ordered COMPREHENSIVE METABOLIC PANEL DAILY@0600 LAB 05/07/17 06:00 Ordered COMPREHENSIVE METABOLIC PANEL DAILY@0600 LAB 05/08/17 06:00 Ordered COMPREHENSIVE METABOLIC PANEL DAILY@0600 LAB 05/09/17 06:00 Ordered COMPREHENSIVE METABOLIC PANEL DAILY@0600 LAB 05/10/17 06:00 Ordered COMPREHENSIVE METABOLIC PANEL DAILY@0600 LAB 05/11/17 06:00 Ordered COMPREHENSIVE METABOLIC PANEL DAILY@0600 LAB 05/12/17 06:00 Ordered COMPREHENSIVE METABOLIC PANEL DAILY@0600 LAB 05/13/17 06:00 Ordered COMPREHENSIVE METABOLIC PANEL DAILY@0600 LAB 05/14/17 06:00 Ordered COMPREHENSIVE METABOLIC PANEL Stat LAB 04/24/17 11:20 Completed CREATINE KINASE Q8H LAB 04/24/17 18:45 Ordered CREATINE KINASE Q8H LAB 04/25/17 02:45 Ordered CREATINE KINASE Stat LAB 04/24/17 11:20 Completed LACTIC ACID Stat LAB 04/24/17 11:20 Completed PARTIAL THROMBOPLASTIN TIME Stat LAB 04/24/17 11:20 Completed PROCALCITONIN Stat LAB 04/24/17 11:20 Completed PT WITH INR Stat LAB 04/24/17 11:20 Completed TROPONIN I Q8H LAB 04/24/17 18:45 Ordered TROPONIN I Q8H LAB 04/25/17 02:45 Ordered TROPONIN I Stat LAB 04/24/17 11:20 Completed Abiraterone Acetate [Zytiga] MEDS 04/25/17 10:00 Ordered 1,000 mg PO 1000 Aspirin [Aspirin EC] MEDS 04/25/17 08:00 Ordered 325 mg PO DAILYWM Gabapentin [Neurontin] MEDS 04/25/17 09:00 Ordered 300 mg PO DAILY Linagliptin [Tradjenta] MEDS 04/25/17 09:00 Ordered 5 mg PO DAILY Morphine Sulfate [Morphine 4 mg/ml Syringe] MEDS 04/24/17 13:00 Ordered 2 mg IVP Q6H Sodium Chloride 0.9% [Sodium Chloride] 1,000 ml MEDS 04/24/17 12:30 Ordered IV 75 mls/hr Tamsulosin HCl [Flomax] MEDS 04/25/17 09:00 Ordered 0.4 mg PO DAILY CHEST, 1V AP ONLY Stat RADS 04/24/17 11:[address] ABDOMEN/PELVIS WO CONTRAST Stat RADS 04/24/17 11:06 Completed Medications Generic Name Dose Route Start Last Admin Trade Name Freq PRN Reason Stop Dose Admin Aspirin 325 mg 04/25/17 08:00 Aspirin Ec PO DAILYWM AMMON Gabapentin 300 mg 04/25/17 09:00 Neurontin PO DAILY AMMON Sodium Chloride 1,000 mls @ 75 mls/hr 04/24/17 12:30 Sodium Chloride IV .[id number] AMMON Linagliptin 5 mg 04/25/17 09:00 Tradjenta PO DAILY AMMON Morphine Sulfate 2 mg 04/24/17 13:00 Morphine 4 Mg/Ml Syringe IVP Q6H AMMON Non-Formulary Medication 1,000 mg 04/25/17 10:00 Abiraterone Acetate [Zytiga] PO 1000 AMMON Tamsulosin HCl 0.4 mg 04/25/17 09:00 Flomax PO DAILY [facility] Vital Signs: Temp Pulse Resp BP Pulse Ox 04/24/17 11:00 98.4 F 135 H 20 79/61 L 95 Departure - Departure Time of Disposition: 12:38 Disposition: ADMITTED INPATIENT Discharge Problem: Dizziness Instructions: Dizziness (ED), Lightheadedness (ED) Condition: Good Pt referred to PMD for follow-up: Yes (ADMITT NOW) Allergies/Adverse Reactions: Allergies No Known Allergies Allergy (Verified 04/24/17 11:09) Home Medications: Ambulatory Orders Tamsulosin HCl 0.4 mg PO DAILY 10/10/13 Hydrocodone Bit/Acetaminophen [Ulysses 7.5-325] 1 each PO TID PRN 07/26/16 Gabapentin 300 mg PO DAILY 10/31/16 Meclizine HCl 25 mg PO TID 10/31/16 Morphine Sulfate [Ms Contin] 15 mg PO BID PRN 10/31/16 Polyethylene Glycol 3350 [Miralax] 17 gm PO DAILY 10/31/16 Abiraterone Acetate [Zytiga] 1,000 mg PO 1000 11/01/16 Diphenoxylate HCl/Atropine [Lomotil 2.5-0.025 mg Tablet] 2.5 mg PO DAILY PRN 06/20 Linagliptin [Tradjenta] 5 mg PO DAILY 04/13/17 Ferrous Sulfate 325 mg PO BID #1 tablet 04/15/17 Metoprolol Tartrate [Lopressor] 50 mg PO DAILY #1 tablet 04/15/17 Aspirin [Aspirin EC] 325 mg PO DAILYWM 04/24/17
[2017-04-24] MEDS: MORPHINE 4 MG/ML SYRINGE IVP SCH ×2 (13:30→22:09)
[2017-04-24] MEDS: SODIUM CHLORIDE 1,000 ML IV SCH (13:35)
[2017-04-24 14:24] VITALS: BMI 25.8
[2017-04-24] MEDS ORDERED: TRADJENTA PO STA (14:40)
[2017-04-24] MEDS ORDERED: FLOMAX PO STA (14:40)
[2017-04-24] MEDS ORDERED: MEGESTROL ACETATE 800 MG PO SCH ×21 (14:45)
[2017-04-24] MEDS ORDERED: MEGACE PO SCH (15:00)
[2017-04-24 19:01] LABS: CREATINE KINASE 64 U/L
[2017-04-25] MEDS: MORPHINE 4 MG/ML SYRINGE IVP SCH (02:03)
[2017-04-25 02:43] LABS: BASOPHILS # (AUTO) 0.1 K/uL (0-0.2); BASOPHILS % (AUTO) 0.6 % (0.0-3.0); EOSINOPHILS # (AUTO) 0.1 K/ul (0.0-0.7); HEMATOCRIT 30.9 % (42.0-52.0); HEMOGLOBIN 10.5 g/dl (14.0-18.0); IMMATURE GRANULOCYTE % (AUTO) 4.2 % (0.0-5.0); LYMPHOCYTES # (AUTO) 0.8 K/uL (0.60-3.4); LYMPHOCYTES % (AUTO) 10.1 (10.0-50.0); MEAN CORPUSCULAR HEMOGLOBIN 28.8 pg (27.0-31.0); MEAN CORPUSCULAR VOLUME 84.7 fl (80.0-94.0); MONOCYTES # (AUTO) 0.7 K/uL (0.4-2.0); MONOCYTES % (AUTO) 8.3 (0-10); NEUTROPHILS # (AUTO) 5.9 K/ul (2.0-6.9); NEUTROPHILS % (AUTO) 75.8; PLATELET COUNT 415 10^3/uL (140-440); RED BLOOD COUNT 3.65 10^6/ul (4.70-6.10)
[2017-04-25 03:03] LABS: ALBUMIN 1.8 g/dL (3.4-5.0); ALBUMIN/GLOBULIN RATIO 0.43; ANION GAP 14.9; BILIRUBIN,TOTAL 0.56 mg/dL (0.00-1.20); BUN/CREATININE RATIO 15.57; CALCIUM 7.9 mg/dL (8.2-10.2); CREATININE 1.22 mg/dL (0.60-1.10); POTASSIUM 4.9 mmol/L (3.5-5.1)
[2017-04-25 03:20] LABS: TROPONIN I 0.015 ng/ml (0.0000-0.4000)
[2017-04-25] MEDS: SODIUM CHLORIDE 1,000 ML IV SCH ×2 (03:39→16:57)
[2017-04-25] MEDS ORDERED: ZOFRAN 4 MG/2 ML IVP PRN (07:56)
[2017-04-25] MEDS ORDERED: ASPIRIN EC PO SCH (08:00)
[2017-04-25] MEDS: PROTONIX IV 40 MG in SODIUM CHLORIDE 100 ML IV SCH (08:57)
[2017-04-25] MEDS ORDERED: MIRALAX PO SCH (09:00)
[2017-04-25] MEDS ORDERED: FLOMAX PO SCH (09:00)
[2017-04-25] MEDS ORDERED: TRADJENTA PO SCH (09:00)
[2017-04-25] MEDS ORDERED: NEURONTIN PO SCH (09:00)
[2017-04-25] MEDS ORDERED: MEGACE PO SCH (09:00)
[2017-04-25] MEDS ORDERED: ABIRATERONE ACETATE 1000 MG PO SCH (10:00)
--- NOTE | 2017-04-25 11:40 | PCM.PROG ---
Attending Provider: ATTENDING PROVIDER: Dr. CALOS VÁSQUEZ DATE OF SERVICE: 04/25/17 SUBJECTIVE: This 76 year old WHITE/ M was hospitalized 04/24/17. The patient is seen with Jeanna, Nurse Practitioner. The patient is alert, lying in bed. The patient started with nausea and vomiting this a.m. now complaining of diarrhea and is having hypotension. Will admit the patient as inpatient. REVIEW OF SYSTEMS: CONSTITUTIONAL: Weakness. No night sweats. No fever or chills. HEENT: Eyes: No visual changes. No eye pain. No eye discharge. ENT: No runny nose. No epistaxis. No sinus pain. No odynophagia. No congestion. RESPIRATORY: No cough, no congestion. No hemoptysis. No shortness of breath. CARDIOVASCULAR: No angina symptoms. No CHF symptoms. No atypical chest pain for CAD. No palpitations. No orthopnea.. GASTROINTESTINAL: Poor appetite. Vomiting and diarrhea. No abdominal pain. No hematemesis. No hematochezia. GENITOURINARY: No urgency. No frequency. No dysuria. No hematuria. No obstructive symptoms. No discharge. No pain. No significant abnormal bleeding. MUSCULOSKELETAL: No musculoskeletal pain; no joint swelling. NEUROLOGICAL: Awake, alert, oriented to time, place and person. No headache. No neck pain. No syncope. No seizures. No dizziness. PSYCHIATRIC: Not anxious. No depression. No suicidal thoughts. No homicidal thoughts. SKIN: No rash. No lesions. No wounds. ENDOCRINE: No unexplained weight loss. No weight gain. HEMATOLOGIC/LYMPHATIC: No anemia. No purpura. No petechiae. No prolonged or excessive bleeding. No palpable lymph nodes. PHYSICAL EXAMINATION: GENERAL: The patient is awake, alert and oriented, sitting in bed in no distress. VITAL SIGNS: Temperature 97.6 F, Pulse 110, Respiratory Rate 16, BP 65/44, Pulse Ox 98% HEENT: Head normocephalic, atraumatic. Eyes: Extraocular muscles are intact. Pupils are equal, round and reactive to light and accommodation. Ears: No lesions. Nose appeared normal. Throat: No exudate or erythema. NECK: Supple. No JVD, no carotid bruit. No lymphadenopathy or thyromegaly. LUNGS: Diminished breath sounds bilaterally, clear to auscultation. Percussion note normal. Chest symmetrical. HEART: S1, S2, no S3. No murmurs. No cyanosis or clubbing. No ascites. Pulses: Dorsalis pedis and posterior tibial pulses +1 to +2 both sides. ABDOMEN: Soft. Non-tender. Bowel sounds active. No CVA tenderness. No mass felt. EXTREMITIES: No edema. Full range of motion of all extremities, equal. NEUROLOGIC: No focal deficit. Cranial nerves II through XII are grossly intact. No headache, no double vision or headache. SKIN: Not dry. Intact. Turgor-normal. LYMPHATIC: No palpable lymph nodes/no lymphedema. MUSCULOSKELETAL: Normal joints with no swelling. Muscle tone is normal. LAB REVIEW: 04/25/17 02:42 04/25/17 02:42 04/25/17 02:42: WBC 7.80, RBC 3.65 L, Hgb 10.5 L, Hct 30.9 L, MCV 84.7, MCH 28.8 , MCHC 34.0, RDW Coeff of Bryn 15.8 H, Plt Count 415, Immature Gran % (Auto) 4.2 , Neut % (Auto) 75.8, Lymph % (Auto) 10.1, [place] % (Auto) 8.3, Eos % (Auto) 1.0, Baso % (Auto) 0.6, Immature Gran # (Auto) 0.3, Neut # 5.9, Lymph # 0.8, [place] # 0.7, Eos # 0.1, Baso # 0.1, Sodium 132 L, Potassium 4.9, Chloride 104, Carbon Dioxide 18 L, Anion Gap 14.9, BUN 19 H, Creatinine 1.22 H, Estimated GFR (MDRD) 58.00, BUN/Creatinine Ratio 15.57, Glucose 104, Calcium 7.9 L, Total Bilirubin 0.56, AST 29, ALT 16, Alkaline Phosphatase 229 H D, Total Creatine Kinase 63, Troponin I 0.0150, Total Protein 6.0, Albumin 1.8 L, Globulin 4.2, Albumin/ Globulin Ratio 0.43 04/24/17 18:30: Total Creatine Kinase 64, Troponin I < 0.0100 ASSESSMENT: 1. Hypotension 2. Acute gastroenteritis 3. Generalized weakness 4. Prostate cancer with bone mets PLAN: 1. Zofran 4 mg q.6hr prn 2. Protonix 40 mg once a day 3. Stool for C. diff 4. Continue IV fluids at 75 mL/hr 5. Admit as inpatient Plan and coordination of the patient's care discussed in the presence of [employer] and nurse. CONDITION: SCRIBED BY: STEVO RESENDIZ Certified Hyperbaric Technician scribed while in presence of service performed by Dr. CALOS VÁSQUEZ/JEANNA REID APRN on 04/25/17 ([id number])
[2017-04-25] MEDS ORDERED: DECADRON 4 MG/ML SDV IM STA ×2 (15:17→15:19)
[2017-04-26 05:14] LABS: HEMATOCRIT 27.8 % (42.0-52.0); HEMOGLOBIN 9.4 g/dl (14.0-18.0); MEAN CORPUSCULAR HEMOGLOBIN 28.5 pg (27.0-31.0); MEAN CORPUSCULAR HGB CONC 33.8 (31.8-35.4); MEAN CORPUSCULAR VOLUME 84.2 fl (80.0-94.0); PLATELET COUNT 432 10^3/uL (140-440)
[2017-04-26 05:30] LABS: ANISOCYTOSIS NOT PRESENT (NOT PRESENT)
[2017-04-26 05:37] LABS: ALBUMIN 1.8 g/dL (3.4-5.0); ALBUMIN/GLOBULIN RATIO 0.45; ANION GAP 16.4; BILIRUBIN,TOTAL 0.36 mg/dL (0.00-1.20); BUN/CREATININE RATIO 14.54; CALCIUM 7.8 mg/dL (8.2-10.2); CREATININE 1.1 mg/dL (0.60-1.10); POTASSIUM 4.4 mmol/L (3.5-5.1); TOTAL PROTEIN 5.8 g/dL (5.8-8.1)
[2017-04-26] MEDS: SODIUM CHLORIDE 1,000 ML IV SCH ×2 (06:03→20:33)
[2017-04-26] MEDS ORDERED: DECADRON 4 MG/ML SDV IM STA (08:07)
[2017-04-26] MEDS: MORPHINE 4 MG/ML SYRINGE IVP SCH (08:51)
--- NOTE | 2017-04-26 08:52 | PN ---
DATE OF SERVICE: 04/24/17 SUBJECTIVE: The patient was hospitalized through the office on observation with hypotension. The patient has endstage prostatic cancer metastasis to the bones. Complaining of moderate to severe pain rating at 2-9 on scale of 1-10. The patient is complaining of back pain and says that his appetite is poor. The is with him. He looks pale. The patient's blood pressure in the office was noted to be 80/60 was light headed. PHYSICAL EXAMINATION: VITAL SIGNS: Pallor, systolic blood pressure 80, pulse 110, respiratory rate 15 , HEENT: Head normocephalic, atraumatic. Eyes: Extraocular muscles are intact. Pupils are equal, round and reactive to light and accommodation. Ears: No lesions. Nose appeared normal. Throat: No exudate or erythema. NECK: Supple. No JVD, no carotid bruit. No lymphadenopathy or thyromegaly. LUNGS: Clear to auscultation with decreased breath sounds. Percussion note normal. Chest symmetrical. HEART: S1, S2, no S3. No murmurs. No cyanosis or clubbing. No ascites. Pulses: Dorsalis pedis and posterior tibial pulses +1 to +2 both sides. ABDOMEN: Soft. Nontender. Bowel sounds active. No CVA tenderness. No mass felt. EXTREMITIES: +1 pitting edema. Full range of motion of all extremities, equal. NEUROLOGIC: No focal deficit. Cranial nerves II through XII are grossly intact. No headache, no double vision or headache. SKIN: Not dry. Intact. Turgor - normal. LYMPHATIC: No palpable lymph nodes/no lymphedema. MUSCULOSKELETAL: Normal joints with no swelling. Muscle tone is normal. LABS: Chest x-ray shows stable Port-A-Cath and findings of prior sternotomy, arthrosclerosis and no pneumonia. CT of the abdomen showed no acute findings. AST noted. hgb 10.8, hct 32, WBC 9,400 normal differential, Pro time normal, creatinine 1.3, GFR 55 cc per minute. Procalcitonin normal. BUN 22, Alkaline phosphatase 255 because of medications, lactic acid normal. TIME SPENT: More than 30 minutes. Plan and coordination of the patient's care discussed in the presence of nurse. LACY
[2017-04-26] MEDS ORDERED: TRADJENTA PO SCH (09:00)
[2017-04-26] MEDS ORDERED: FLOMAX PO SCH (09:00)
[2017-04-26] MEDS: PROTONIX IV 40 MG in SODIUM CHLORIDE 100 ML IV SCH (09:00)
--- NOTE | 2017-04-26 09:51 | PN ---
DATE OF SERVICE: 04/25/17 SUBJECTIVE: The patient is a 76 year old male hospitalized with hypotension, seems to be dehydration and could be secondary to poor oral intake with continuous pain with metastatic cancer to the bone from prostatic cancer. The patient's hgb is stable as compared to the last one. This morning the patient reports that has been having diarrhea and vomiting. The patient looks somewhat pale and skin turgor is poor. The patient was seen and examined with Nurse Practitioner. Agreed with patient's status. The patient needs to be admitted regular. He may end up staying a few more days. He is agreeable to stay to monitor CBC and CMP, also will treat him symptomatically with IV fluids. Condition stable. The patient's met me in the hallway and I discussed with patient's problems in detail that patient's condition is endstage with metastatic disease to the bones and he could fall and paralyze at any time. The patient is very stubborn and refusing to use anything to walk or refusing any further assistance. The patient is followed by Dr. Kim who is a hematology oncologist. Advised the patient and to think about Hospice. TIME SPENT: More than 30 minutes. Plan and coordination of the patient's care discussed in the presence of nurse. LACY
[2017-04-26] MEDS: ASPIRIN EC PO SCH (09:56)
[2017-04-26] MEDS: MEGACE PO SCH (09:57)
[2017-04-26] MEDS: MIRALAX PO SCH (09:57)
--- NOTE | 2017-04-26 10:32 | US ---
EXAM: Renal ultrasound. History: Left renal lesion. Comparison: CT abdomen pelvis 04/24/2017 Technique: Multiple sonographic images through the kidneys were obtained. Color duplex Doppler was used to interrogate vascular flow. Findings: Neither ureteral jet was visualized within the bladder. The right kidney measures 10.8 cm in long length demonstrating normal cortical echogenicity without evidence for hydronephrosis, mass or shadowing calculus. The liver is fatty. The left kidney measures 9.6 cm in long length demonstrating normal cortical echogenicity without ev idence for hydronephrosis or shadowing calculus. 2.1 cm complex cystic lesion within the left kidne y. Impression: 1. Complex left renal cystic lesion. Recommend further evaluation with CT or MRI renal mass protoc ol. 2. No hydronephrosis. 3. Hepatic steatosis
--- NOTE | 2017-04-26 11:13 | PCM.PROG ---
Attending Provider: ATTENDING PROVIDER: Dr. CALOS VÁSQUEZ DATE OF SERVICE: 04/26/17 SUBJECTIVE: This 76 year old WHITE/ M was hospitalized 04/24/17. The patient is hospitalized with hypotension and weakness. The patient had acute gastroenteritis yesterday which has resolved completely. He looks better and feels better and wants to go home. REVIEW OF SYSTEMS: CONSTITUTIONAL: No night sweats. No fatigue, malaise, lethargy. No fever or chills. HEENT: Eyes: No visual changes. No eye pain. No eye discharge. ENT: No runny nose. No epistaxis. No sinus pain. No odynophagia. No congestion. RESPIRATORY: No cough, no congestion. No hemoptysis. No shortness of breath. CARDIOVASCULAR: No angina symptoms. No CHF symptoms. No atypical chest pain for CAD. No palpitations. No orthopnea.. GASTROINTESTINAL: No abdominal pain. No nausea or vomiting. No diarrhea or constipation. No hematemesis. No hematochezia. GENITOURINARY: No urgency. No frequency. No dysuria. No hematuria. No obstructive symptoms. No discharge. No pain. No significant abnormal bleeding. MUSCULOSKELETAL: Mild back pain. NEUROLOGICAL: Awake, alert, oriented to time, place and person. No headache. No neck pain. No syncope. No seizures. No dizziness. PSYCHIATRIC: Not anxious. No depression. No suicidal thoughts. No homicidal thoughts. SKIN: No rash. No lesions. No wounds. ENDOCRINE: No unexplained weight loss. No weight gain. HEMATOLOGIC/LYMPHATIC: No anemia. No purpura. No petechiae. No prolonged or excessive bleeding. No palpable lymph nodes. PHYSICAL EXAMINATION: GENERAL: The patient is awake, alert and oriented, lying in bed in no distress. VITAL SIGNS: Temperature 97.1 F, Pulse 107, Respiratory Rate 18, BP 84/54, Pulse Ox 98% HEENT: Head normocephalic, atraumatic. Eyes: Extraocular muscles are intact. Pupils are equal, round and reactive to light and accommodation. Ears: No lesions. Nose appeared normal. Throat: No exudate or erythema. Mild pallor noted. NECK: Supple. No JVD, no carotid bruit. No lymphadenopathy or thyromegaly. LUNGS: Decreased breath sounds but clear to auscultation. Percussion note normal. Chest symmetrical. HEART: S1, S2, no S3. No murmurs. No cyanosis or clubbing. No ascites. Pulses: Dorsalis pedis and posterior tibial pulses +1 to +2 both sides. ABDOMEN: Soft. Non-tender. Bowel sounds active. No CVA tenderness. No mass felt. EXTREMITIES: No edema. Full range of motion of all extremities, equal. NEUROLOGIC: No focal deficit. Cranial nerves II through XII are grossly intact. No headache, no double vision or headache. SKIN: Not dry. Intact. Turgor-normal. LYMPHATIC: No palpable lymph nodes/no lymphedema. MUSCULOSKELETAL: Normal joints with no swelling. Muscle tone is normal. LAB REVIEW: 04/26/17 05:11 04/26/17 05:11 04/26/17 05:11: WBC 7.00, RBC 3.30 L, Hgb 9.4 L, Hct 27.8 L, MCV 84.2, MCH 28.5 , MCHC 33.8, RDW Coeff of Bryn 15.9 H, Plt Count 432, Neutrophils % (Manual) 86.0 H, Lymphocytes % (Manual) 11.0, Monocytes % (Manual) 3.0, Anisocytosis Not present, Sodium 135 L, Potassium 4.4, Chloride 108 H, Carbon Dioxide 15 L, Anion Gap 16.4, BUN 16, Creatinine 1.10, Estimated GFR (MDRD) 65.00, BUN/ Creatinine Ratio 14.54, Glucose 132 H, Calcium 7.8 L, Total Bilirubin 0.36, AST 24, ALT 15, Alkaline Phosphatase 211 H, Total Protein 5.8, Albumin 1.8 L, Globulin 4.0, Albumin/Globulin Ratio 0.45 ASSESSMENT: 1. Hypotension 2. Acute gastroenteritis 3. Prostatic cancer with bone metastasis PLAN: 1. Regular diet and see how he does. 2. The patient does not have any diarrhea, is up and about doing well, possible discharge home. 3. 1 cc Decadron this morning. 4. Increase salt intake. 5. Drink lots of fluids. 6. Renal ultrasound today. 7. D/C Tradjenta Plan and coordination of the patient's care discussed in the presence of Machine Burrer and nurse. EDUCATION CARRIED OUT ABOUT: I explained to the patient's that prognosis is poor. Discussed hospice but she has poor understanding of his problems and medications. She says he has appointment with urologist but doesn't know where and also has follow up with Dr. Kim. CONDITION: Stable PROGNOSIS: Poor SCRIBED BY: STEVO RESENDIZ Driver License Agent scribed while in presence of service performed by Dr. CALOS VÁSQUEZ on 04/26/17 ([id number])
[2017-04-26] MEDS: FLAGYL PO SCH ×2 (13:32→20:33)
[2017-04-27 04:54] LABS: BASOPHILS % (AUTO) 0.2 % (0.0-3.0); EOSINOPHILS % (AUTO) 0.1 % (0.0-7.0); HEMATOCRIT 27.7 % (42.0-52.0); HEMOGLOBIN 9.3 g/dl (14.0-18.0); IMMATURE GRANULOCYTE % (AUTO) 5.9 % (0.0-5.0); LYMPHOCYTES # (AUTO) 0.7 K/uL (0.60-3.4); LYMPHOCYTES % (AUTO) 7.4 (10.0-50.0); MEAN CORPUSCULAR HEMOGLOBIN 28.2 pg (27.0-31.0); MEAN CORPUSCULAR HGB CONC 33.6 (31.8-35.4); MEAN CORPUSCULAR VOLUME 83.9 fl (80.0-94.0); MONOCYTES # (AUTO) 0.6 K/uL (0.4-2.0); MONOCYTES % (AUTO) 6.4 (0-10); NEUTROPHILS # (AUTO) 7.3 K/ul (2.0-6.9); PLATELET COUNT 431 10^3/uL (140-440); WHITE BLOOD COUNT 9.15 K/ul (4.2-10.2)
[2017-04-27 05:12] LABS: ALBUMIN 1.8 g/dL (3.4-5.0); ALBUMIN/GLOBULIN RATIO 0.51; ANION GAP 17.4; BILIRUBIN,TOTAL 0.27 mg/dL (0.00-1.20); BUN/CREATININE RATIO 15.17; CALCIUM 7.9 mg/dL (8.2-10.2); CREATININE 1.12 mg/dL (0.60-1.10); POTASSIUM 4.4 mmol/L (3.5-5.1); TOTAL PROTEIN 5.3 g/dL (5.8-8.1)
[2017-04-27 05:27] VITALS: TEMP 98.1
[2017-04-27 05:28] VITALS: BP 104/56
[2017-04-27] MEDS: FLAGYL PO SCH (05:40)
[2017-04-27] MEDS: MIRALAX PO SCH (08:55)
[2017-04-27] MEDS: ASPIRIN EC PO SCH (08:55)
[2017-04-27] MEDS: PROTONIX IV 40 MG in SODIUM CHLORIDE 100 ML IV SCH (08:55)
[2017-04-27] MEDS: MEGACE PO SCH (08:55)
--- NOTE | 2017-04-27 11:02 | CM.DICTOOL ---
ADMISSION: 04/24/17 13:33 DISCHARGE: 04/27/17 DATE OF SERVICE: 04/27/17 FINAL DIAGNOSIS ACUTE GASTROENTERITIS C-DIFF COLITIS HYPOTENSION WEAKNESS DEHYDRATION HYPONATREMIA ANEMIA VITAMIN B 12 DEFICIENCY CAD S/P CABG-4 VESSEL, 2006 DYSLIPIDEMIA HYPERTENSION CHRONIC LUNG DISEASE DM, TYPE 2 NEUROPATHY DIVERTICULOSIS OF THE COLON CHRONIC KIDNEY DISEASE PROSTATE CANCER METASTATIC BONE CANCER; DR. BONNER/DR. 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 ADENIKE CATH, LEFT CHEST LAST VITALS Temp Pulse Resp BP Pulse Ox 98.1 F 104 H 20 104/56 L 98 04/27/17 05:25 04/27/17 05:27 04/27/17 05:25 04/27/17 05:27 04/27/17 05:25 ACTIVE HOME MEDICATIONS Aspirin (Aspirin Ec) 325 mg PO DAILYWM [facility] Last Admin: 04/27/17 08:55 Dose: 325 mg Ferrous Sulfate 325 mg PO DAILYWM Pantoprazole Sodium 40 mg PO DAILY [facility] (NEW PRESCRIPTION) Last Admin: 04/27/17 08:55 Dose: 100 mls/hr Meclizine HCL 0.4 mg PO DAILY Megestrol Acetate (Megace) 800 mg PO DAILY [facility] Last Admin: 04/27/17 08:55 Dose: 800 mg Metronidazole (Flagyl) 500 mg PO Q8HR [facility] (NEW PRESCRIPTION) Last Admin: 04/27/17 05:40 Dose: 500 mg Morphine Sulfate (MsContin) 15 mg PO BID PRN Oxycodone-Acetaminophen (Percocet) 10-325 mg, one tab PO Q6 Hours PRN Polyethylene Glycol (Miralax) 17 gm PO DAILY [facility] Last Admin: 04/27/17 08:55 Dose: 17 gm ALLERGIES No Known Allergies Allergy (Verified 04/24/17 11:09) NEW PRESCRIPTIONS: PROTONIX 40 MG PO DAILY X 30 DAYS FLAGYL 500 MG PO Q8 HOURS X 10 DAYS DO NOT TAKE YOUR AMLODIPINE BES/OLMESARTAN (SUSHILA) DO NOT TAKE YOUR TAMSULOSIN HCL 0.4 MG PO DAILY UNTIL FURTHER INSTRUCTED BY DR. THORNE DO NOT TAKE YOUR DIPHENOXYLATE HCL/ATROPINE (LOMOTIL) SMOKING: FORMER SMOKER NONE NOW DISEASE SPECIFIC EDUCATION: C-DIFF COLITIS HYPOTENSION DEHYDRATION HYPONATREMIA REQUIRED LIQUID INTAKE SODIUM INTAKE PAIN MEDICATIONS AND EFFECT ON BLOOD PRESSURE READINGS HOME MEDICATIONS AND CHANGES NEW PRESCRIPTIONS LAB REVIEW: 04/27/17 04:30 04/27/17 04:30 04/27/17 04:30: WBC 9.15, RBC 3.30 L, Hgb 9.3 L, Hct 27.7 L, MCV 83.9, MCH 28.2 , MCHC 33.6, RDW Coeff of Bryn 15.9 H, Plt Count 431, Immature Gran % (Auto) 5.9 H, Neut % (Auto) 80.0, Lymph % (Auto) 7.4 L, [place] % (Auto) 6.4, Eos % (Auto) 0.1 , Baso % (Auto) 0.2, Immature Gran # (Auto) 0.5, Neut # 7.3 H, Lymph # 0.7, [place] # 0.6, Eos # 0.0, Baso # 0.0, Sodium 138, Potassium 4.4, Chloride 109 H, Carbon Dioxide 16 L, Anion Gap 17.4, BUN 17, Creatinine 1.12 H, Estimated GFR ( MDRD) 64.00, BUN/Creatinine Ratio 15.17, Glucose 111, Calcium 7.9 L, Total Bilirubin 0.27, AST 23, ALT 13, Alkaline Phosphatase 183 H D, Total Protein 5.3 L, Albumin 1.8 L, Globulin 3.5, Albumin/Globulin Ratio 0.51 PLAN: DISCHARGE HOME TODAY RETURN TO SEE DR. VÁSQUEZ NEXT WEEK. PLEASE PHONE HIS OFFICE TO SCHEDULE YOUR FOLLOW UP APPOINTMENT ([phone]) [facility] WILL PHONE YOU AT HOME TO SCHEDULE AN ASSESSMENT VISIT TO DETERMINE IF YOU QUALIFY FOR HOMEMAKING SERVICES KEEP YOUR APPOINTMENTS WITH: DR. BONNER 04/28/17 AT 11:[address] [place] [address], [address] [place] [id number] DR. THORNE, UROLOGY 05/04/17 [address] [facility], [address] [phone] BRING CD WITH RENAL U/S RESULTS FROM [facility] RESUME YOUR HOME MEDICATIONS PER LIST PROVIDED BY THE NURSING STAFF DO NOT TAKE YOUR AMLODIPINE BES/OLMESARTAN (SUSHILA) DO NOT TAKE YOUR TAMSULOSIN HCL UNTIL INSTRUCTED BY DR. THORNE DO NOT TAKE YOUR DIPHENOXYLATEHCL/ATROPINE (LOMOTIL) REMEMBER THAT THE PAIN MEDICATIONS PRESCRIBED MAY LOWER YOUR BLOOD PRESSURE PERCOCET MORPHINE SULFATE (MS CONTIN) NEW PRESCRIPTIONS: FLAGYL 500 MG, TAKE ONE TABLET BY MOUTH THREE TIMES A DAY FOR 10 DAYS PROTONIX 40 MG, TAKE ONE TABLET BY MOUTH DAILY FOR 30 DAYS ACTIVITY: GET PLENTY OF REST AT HOME . GRADUALLY INCREASE YOUR ACTIVITY LEVEL ACCORDING TO YOUR TOLERATION DIET: TOLERATED SUMMARY: THE PATIENT IS ALERT AND ORIENTED X3. HE CURRENTLY RESIDES AT HOME WITH HIS SPOUSE. HE UTILIZES [facility]. HE WOULD LIKE TO CONTINUE THESE SERVICES AFTER DISCHARGE. WE WILL REQUEST THAT NURSING SERVICES FOR GENERAL ASSESSMENT AND MEDICATION COMPLIANCE, PHYSICAL THERAPY/ OCCUPATIONAL THERAPY BE RESUMED AFTER DISCHARGE. THE PATIENT IS AGREEABLE FOR THESE SERVICES. IN ADDITION, HE HAS CONSENTED TO REFERRAL TO [facility] FOR HOMEMAKING SERVICES. THE FREQUENCY OF STOOLS HAS DECREASED AND THE CONSISTENCY IS FORMED. THE PATIENT DENIES HAVING ANY ABDOMINAL PAIN OR DIARRHEA. HE TELLS US HE IS FEELING MUCH BETTER. HE HAS APPOINTMENTS LISTED ABOVE THAT HE WOULD LIKE TO KEEP. HE SAYS DR. BONNER WILL DISCUSS A PLAN FOR TREATMENT OF HIS CANCER AT THIS UPCOMING APPOINTMENT. HE DOES NOT WANT TO MISS IT. THE SKIN IS SALLOW IN COLOR. TURGOR IS FAIR. THERE ARE NO DECUBITUS ULCERS PRESENT AT DISCHARGE. THE PATIENT VITAL SIGNS ARE STABLE. HE OFFERS NO COMPLAINTS THIS MORNING. HE IS AWARE AND AGREEABLE FOR DISCHARGE TODAY. CURRENT CODE STATUS: DO NOT RESUSCIATE DARVIN REID APRN CALOS VÁSQUEZ M.D.
--- NOTE | 2017-04-27 11:03 | PCM.PROG ---
Attending Provider: ATTENDING PROVIDER: Dr. CALOS MARS DATE OF SERVICE: 04/27/17 SUBJECTIVE: This 76 year old WHITE/ M was hospitalized 04/24/17. The patient is seen with Jeanna, Nurse Practitioner. The patient is sitting in the chair, alert, and is ready to go home. The patient has been up and about to bathroom by himself. He had a formed stool this morning and only 3 yesterday. Weakness has resolved, no dizziness. REVIEW OF SYSTEMS: CONSTITUTIONAL: No night sweats. No fatigue, malaise, lethargy. No fever or chills. HEENT: Eyes: No visual changes. No eye pain. No eye discharge. ENT: No runny nose. No epistaxis. No sinus pain. No odynophagia. No congestion. RESPIRATORY: No cough, no congestion. No hemoptysis. No shortness of breath. CARDIOVASCULAR: No angina symptoms. No CHF symptoms. No atypical chest pain for CAD. No palpitations. No orthopnea.. GASTROINTESTINAL: No abdominal pain. No nausea or vomiting. No diarrhea or constipation. No hematemesis. No hematochezia. GENITOURINARY: No urgency. No frequency. No dysuria. No hematuria. No obstructive symptoms. No discharge. No pain. No significant abnormal bleeding. MUSCULOSKELETAL: No musculoskeletal pain; no joint swelling. NEUROLOGICAL: Awake, alert, oriented to time, place and person. No headache. No neck pain. No syncope. No seizures. No dizziness. PSYCHIATRIC: Not anxious. No depression. No suicidal thoughts. No homicidal thoughts. SKIN: No rash. No lesions. No wounds. ENDOCRINE: No unexplained weight loss. No weight gain. HEMATOLOGIC/LYMPHATIC: No anemia. No purpura. No petechiae. No prolonged or excessive bleeding. No palpable lymph nodes. PHYSICAL EXAMINATION: GENERAL: The patient is awake, alert and oriented, sitting in chair in no distress. VITAL SIGNS: Temperature 98.1 F, Pulse 104, Respiratory Rate 20, BP 104/56, Pulse Ox 98% HEENT: Head normocephalic, atraumatic. Eyes: Extraocular muscles are intact. Pupils are equal, round and reactive to light and accommodation. Ears: No lesions. Nose appeared normal. Throat: No exudate or erythema. NECK: Supple. No JVD, no carotid bruit. No lymphadenopathy or thyromegaly. LUNGS: Diminished breath sounds bilaterally. Clear to auscultation. Percussion note normal. Chest symmetrical. HEART: S1, S2, no S3. No murmurs. No cyanosis or clubbing. No ascites. Pulses: Dorsalis pedis and posterior tibial pulses +1 to +2 both sides. ABDOMEN: Soft. Non-tender. Bowel sounds active. No CVA tenderness. No mass felt. EXTREMITIES: No edema. Full range of motion of all extremities, equal. NEUROLOGIC: No focal deficit. Cranial nerves II through XII are grossly intact. No headache, no double vision or headache. SKIN: Not dry. Intact. Turgor-normal. LYMPHATIC: No palpable lymph nodes/no lymphedema. MUSCULOSKELETAL: Normal joints with no swelling. Muscle tone is normal. LAB REVIEW: 04/27/17 04:30 04/27/17 04:30 04/27/17 04:30: WBC 9.15, RBC 3.30 L, Hgb 9.3 L, Hct 27.7 L, MCV 83.9, MCH 28.2 , MCHC 33.6, RDW Coeff of Bryn 15.9 H, Plt Count 431, Immature Gran % (Auto) 5.9 H, Neut % (Auto) 80.0, Lymph % (Auto) 7.4 L, [place] % (Auto) 6.4, Eos % (Auto) 0.1 , Baso % (Auto) 0.2, Immature Gran # (Auto) 0.5, Neut # 7.3 H, Lymph # 0.7, [place] # 0.6, Eos # 0.0, Baso # 0.0, Sodium 138, Potassium 4.4, Chloride 109 H, Carbon Dioxide 16 L, Anion Gap 17.4, BUN 17, Creatinine 1.12 H, Estimated GFR ( MDRD) 64.00, BUN/Creatinine Ratio 15.17, Glucose 111, Calcium 7.9 L, Total Bilirubin 0.27, AST 23, ALT 13, Alkaline Phosphatase 183 H D, Total Protein 5.3 L, Albumin 1.8 L, Globulin 3.5, Albumin/Globulin Ratio 0.51 ASSESSMENT: 1. C. diff positive 2. Hypotension, resolved 3. Acute gastroenteritis, resolved 4. Prostatic cancer with bone metastasis PLAN: 1. Discharge home. 2. The patient has appointment with Dr. Kim, Oncology, tomorrow, 04/28/17. 3. Followup with Dr. Mars in his office next week. 4. Continue Flagyl 500 mg p.o. q.8hr times 10 days. 5. Keep appointment with Dr. Mahan, Urology, on 05/04/17. 6. Protonix 40 mg one p.o. daily. Plan and coordination of the patient's care discussed in the presence of Manufacturing Advisor and nurse. CONDITION: Stable SCRIBED BY: STEVO RESNEDIZ [employer] Co[employer] Operator Helper scribed while in presence of service performed by Dr. CALOS MARS/JEANNA REID APRN on 04/27/17 ([id number])
--- NOTE | 2017-04-28 11:09 | DS ---
DATE OF SERVICE: 04/27/17 FINAL DIAGNOSIS: 1. Acute gastroenteritis 2. C-Diff Colitis 3. Hypotension 4. Weakness 5. Dehydration 6. Hyponatremia 7. Anemia 8. Vitamin B 12 deficiency 9. CAD status post CABG 4 vessel, 2005 10.Dyslipidemia 11.Hypertension 12.Chronic lung disease 13.Diabetes mellitus, type 2 14.Neuropathy 15.Diverticulosis of the colon 16.Chronic kidney disease 17.Prostate Cancer 18.Metastatic bone cancer; Dr. Kim/Dr. Iverson, [place], [place] 19.History of pulmonary embolism 20.DDD spine 21.Left knee replacement 22.Ila Cath, left chest. LAST VITALS: Temperature 98.1, pulse 104, respiratory rate 20, blood pressure 104/56 and pulse ox 98%. DISCHARGE INSTRUCTIONS: Discharge home today. Return to see Dr. Mars next week. [facility] will be phone to schedule an assessment visit to determine if you qualify. Keep appointments with Dr. Kim 04/28/17 at 11:[address] Mahan, urology 05/04/17. Bring CD with renal ultrasound results from [facility]. Resume home medications as per list provided by nursing staff. Do Not take Amlodipine. Do Not take Tamsulosin until instructed by Dr. Mahan. Do not take Diphenoxylate. MEDICATIONS AT DISCHARGE: Aspirin 325mg Po daily Ferrous Sulfate 325mg Po daily Pantoprazole Sodium 40mg PO daily Meclizine HCL 0.4mg PO daily Megace 800mg Po daily Flagyl 500mg PO Q 8 hours Ms Contin 15mg Po twice a day PRN Percocet 10-325mg one tablet PO Q 6 hour PRN Miralax 17 gram Po daily ALLERGIES: No known allergies NEW PRESCRIPTIONS: Protonix 40mg PO daily x30 days Flagyl 500mg PO Q 8 hours [id number] DIET INSTRUCTIONS: As tolerated ACTIVITY: Get plenty of rest at home. Gradually increase activity level according to toleration. SMOKING: Former Smoker; None now DISEASE SPECIFIC EDUCATION: C-Diff colitis Hypotension Dehydration Hyponatremia Required Liquid Intake Sodium intake Pain medications and effect on blood pressure readings Home medications and changes New prescriptions HOSPITAL COURSE: The patient is a 76 year old white male was hospitalized with weakness and hypotension. The patient also developed acute gastroenteritis while he was in the hospital. C-Diff positive could be from colonization. Any case the patient is eating well and has formed stools. The patient is on Flagyl and he will be continued on Flagyl. The patient has metastatic C of the prostate to the bones. The patient's and patient as both aware of it. The patient could suffer dire consequences with the fall. He is advised to walk with a walker but he declined. He is being followed Dr. Kim and Dr. Mahan. Condition at the time of discharge stable. The patient appetite is normal. He is no dehydration, hgb and hct are stable 9.3 and 27, creatinine 1.1, BUN 17. Blood pressure was 104/56. The patient was seen with Nurse Practitioner. CONDITION: Stable. TIME SPENT: More than 60 minutes. MTDD
--- NOTE | 2017-04-28 11:14 | PN ---
04/24/17: Level 5 04/25/17: Intermediate 04/26/17: Intermediate 04/27/17: D as in discharge MTDD
--- NOTE | 2017-05-15 08:39 | HP ---
DATE OF SERVICE: 04/24/17 HISTORY OF PRESENT ILLNESS: 76-year-old male who presented to the emergency room complaining of dizziness, had had hypotension in our office. He had previously been hospitalized within the past month or so for hypotension, dizziness and acute blood loss. He stated he had been feeling bad for the past two days at home. He had had no fever. He just felt like laying in bed. REVIEW OF SYSTEMS: CONSTITUTIONAL: Generalized weakness and malaise. No night sweats. No fever or chills. HEENT: Eyes: No visual changes. No eye pain. No eye discharge. No redness. ENT: EARS: Positive for hearing loss. No sore throat. No nasal congestion. RESPIRATORY: No cough, no congestion. No hemoptysis. No shortness of breath. CARDIOVASCULAR: No angina symptoms. No CHF symptoms. No atypical chest pain for CAD. No palpitations. No orthopnea. GASTROINTESTINAL: No abdominal pain. No nausea or vomiting. No diarrhea or constipation. No hematemesis. No hematochezia. GENITOURINARY: No urgency. No frequency. No dysuria. No hematuria. No obstructive symptoms. No discharge. No pain. No significant abnormal bleeding. MUSCULOSKELETAL: Positive for generalized weakness. No musculoskeletal pain. No joint swelling. No arthritis. NEUROLOGICAL: The patient has bouts of confusion. PSYCHIATRIC: Not anxious. No depression. No suicidal thoughts. No homicidal thoughts. SKIN: Intact. No rash. No lesions. No wounds. ENDOCRINE: No unexplained weight loss. No weight gain. HEMATOLOGIC/LYMPHATIC: No anemia. No purpura. No petechiae. No prolonged or excessive bleeding. No palpable lymph nodes. PERSONAL/FAMILY/SOCIAL HISTORY: The patient is , has no children. PAST MEDICAL HISTORY: Cancer of the prostate with bone metastasis Diabetes mellitus type 2 Anxiety disorder Hypertension Dyslipidemia Chronic kidney disease, Stage 2 B12 deficiency Bilateral sciatica History of PVCs History of L2 compression fracture PAST SURGICAL HISTORY: Status post prostate surgery CABG in 2005 MEDICATIONS: Flomax 0.4 mg daily Lopressor 100 mg daily [place] 7.53 25 mg t.i.d. Morphine Sulfate 15 mg b.i.d. p.r.n. Aspirin 81 mg Neurontin 300 mg daily Meclizine 25 mg t.i.d. Zytiga 250 mg daily Lomotil as needed Tradjenta 5 mg daily Sukh 10-40 one tablet daily Ferrous Sulfate 325 mg b.i.d. ALLERGIES: NKDA PHYSICAL EXAMINATION: GENERAL: The patient is ill-appearing, appears fatigued. No acute distress. He is well-nourished. VITAL SIGNS: HEENT: Head normocephalic, atraumatic. Eyes: Extraocular muscles are intact. Pupils are equal, round and reactive to light and accommodation. Conjunctiva is clear. Ears: TMs within normal limits. Nose appeared normal. Oropharynx: No exudate or erythema. NECK: Supple. No JVD, no carotid bruit. No lymphadenopathy or thyromegaly. LUNGS: Diminished breath sounds bilaterally. Equal and clear to auscultation. Percussion note normal. Chest symmetrical. HEART: Regular rate and rhythm. S1, S2, no S3. No murmurs. No cyanosis or clubbing. No ascites. Pulses: Dorsalis pedis and posterior tibial pulses +1 to +2 both sides. ABDOMEN: Soft. Nontender. Bowel sounds active times four quadrants. No CVA tenderness. No mass felt. EXTREMITIES: No clubbing, no cyanosis. No joint swelling or redness. No edema. No calf tenderness. Decreased strength. Full range of motion of all extremities, equal. NEUROLOGIC: Alert and oriented although fatigued. No focal deficit. Cranial nerves II through XII are grossly intact. No headache, no double vision or headache. SKIN: Warm, dry and intact although he is pale. . LYMPHATIC: No palpable lymph nodes/no lymphedema. MUSCULOSKELETAL: Normal joints with no swelling. Muscle tone is normal. LABS ON ADMISSION: White count 9.4, hemoglobin 10.8, hematocrit 32.1, platelets 482. Sodium 132, potassium 4.9, BUN 22, creatinine 1.36, glucose 129. Lactic acid 17.3, AST 31, ALT 17, alkaline phosphatase 255. CK 71, albumin 2.0, globulin 4.7. CT scan of the abdomen showed stable bone mets. No acute process. Chest x-ray normal. ASSESSMENT: 1. DEHYDRATION 2. DIZZINESS 3. ANEMIA 4. HYPOTENSION 5. WEAKNESS 6. ACUTE GASTROENTERITIS PLAN: 1. Admit to the floor. 2. Routine telemetry orders 3. Test blood pressure, do orthostatic blood pressure 4. Will hold blood pressure medications 5. IV fluids NS at 75 mL/hr for dehydration 6. Continue home medications 7. Regular diet 8. After being admitted, the patient developed signs and symptoms of acute gastroenteritis. We will add Protonix 40 mg daily along with Zofran 4 mg q.6hr p.r.n. He will be admitted as an inpatient. 9. We will follow closely. 10. Stools for C. diff TIME SPENT: More than 70 minutes. MTDD
--- NOTE | 2017-05-15 14:31 | DS ---
DATE OF SERVICE: 04/27/17 FINAL DIAGNOSIS: 1. ACUTE GASTROENTERITIS 2. C. DIFF COLITIS 3. HYPOTENSION 4. WEAKNESS 5. DEHYDRATION 6. HYPONATREMIA 7. ANEMIA 8. VITAMIN B12 DEFICIENCY 9. CAD STATUS POST CABG-4 VESSEL 10. DYSLIPIDEMIA 11. HYPERTENSION 12. CHRONIC LUNG DISEASE 13. DIABETES MELLITUS, TYPE 2 14. NEUROPATHY 15. DIVERTICULIOSIS OF THE COLON 16. CHRONIC KIDNEY DISEASE 17. PROSTATE CANCER 18. METASTATIC BONE CANCER, DR. KIM/DR. ABDULLAHI, [place], [place] 19. 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 LEFT KNEE REPLACEMENT 22. ADENIKE CATH LEFT CHEST DISCHARGE INSTRUCTIONS: Followup appointment: Return to see Dr. Mars next week. Please phone his office to schedule your followup appointment. [facility] will phone you at home to schedule an assessment visit to determine if you qualify for homemaking services. Keep your appointments with Dr. Kim, at 11:15, [address] [place] [address], [address]; [phone]; Dr. Mahan, Urology, 05/04/17, [facility], [address], [place], [place], . MEDICATIONS AT DISCHARGE: Resume your home medications as per list provided by the nursing staff: Do not take your Amlodipine/Olmesartan Do not take your Tamsulosin HCL until instructed by Dr. Mahan Do not take your Diphenoxylatehcl/Atropine (Lomotil) Resume: Miralax 17 gm p.o. daily MS Contin 15 mg p.o. b.i.d. p.r.n. Megace 800 mg p.o. daily NEW PRESCRIPTIONS: Flagyl 500 mg take one tablet by mouth three times a day for 10 days Protonix 40 mg take one tablet by mouth daily for 30 days DIET INSTRUCTIONS: As tolerated. ACTIVITY: Get plenty of rest at home. Gradually increase your activity level according to your toleration. SMOKING: Former Smoker DISEASE SPECIFIC EDUCATION: C. diff colitis Hypotension Dehydration Hyponatremia Required liquid intake Sodium intake Pain medications and effect on blood pressure readings Home medictions and changes New prescriptions HOSPITAL COURSE: This is a 76-year-old male who first presented to our office with hypotension, weakness and GI upset. He then went to the Emergency Room to be evaluated to decide whether or not he should be admitted. Upon being seen in the emergency room, he had extreme hypotension, weakness. He could not get out of his wheelchair. He began with diarrhea and with vomiting. On the second day we added Protonix 40 mg and Zofran for the nausea. Stool studies were done and he ended up being positive for C. diff. The patient does have a long history of hypotension and generalized weakness. He was hospitalized not that long ago for the very same thing. After the positive C. diff he was placed on Flagyl 500 mg t.i.d. The Zofran was continued. He has Lomotil at home, which is a home medication and that was discontinued. He was continued on IV fluids at 75 mL/ hr. The CT scan of the abdomen showed that he did have prostate cancer with stable bone metastasis and also showed a cystic lesion on the left kidney which is also stable from previous studies. As of yesterday on 04/26/17, the patient had only had three stools yesterday. His vomiting had resolved. The Flagyl had seemed to work rather quickly. Today, on the morning of discharge, he actually had a formed stool. The patient was up and about walking to the bathroom on his own. His color had improved. He does have chronic anemia and his hemoglobin has remained stable during the hospital stay around 9.3 to 9.4. This is normal for him. He stated that he felt like going home. He has an appointment with Dr. Kim tomorrow to see about treatment or palliative care for his bone metastasis due to his prostate cancer. He also has an appointment with Dr. Mahan on 05/04 which he is instructed to keep. Today, on the day of discharge, he reports that his dizziness has resolved. He is feeling much stronger. He would like to go home. His vital signs upon discharge are temperature 98.1, heart rate 104, respirations 20, BP 104/56, pulse ox 98. When he ws first admitted with the low blood pressure, we did hold the Flomax as we felt this may be contributing to some of his hypotension. We also held his Sukh blood pressure medication as we felt this may contribute to his hypotension as well. He will be discharged home on Flagyl 500 mg t.i.d. for the next 10 days. He is instructed to keep his appointments with both Dr. Kim and Dr. Mahan. We will continue to hold both his Sukh and his Flomax. On telemetry the patient has remained tachycardic during the stay which is normal for him; hoever, his telemetry has showed normal sinus rhythm. This morning he stated that he felt like eating breakfast. We will continue him on the Protonix 40 mg daily for the next 2 weeks. Upon admission we also did a series of orthostatic blood pressures as we felt that he was having orthostatic hypotension which this did prove to be true. Again, we held his medication and this seems to have resolved the issue. Altogether the patient seems remarkably better after his hospital stay. We will followup with him in the office. He is instructed to continue the Flagyl and keep his follow up appointments with Dr. Kim and Dr. Mahan. Today, on day of discharge, hemoglobin 9.3, hematocrit 27.7, platelets 431, white count 9.1, sodium 138, potassium 4.4, BUN 17, creatinine 1.12. TIME SPENT: More than 60 minutes. LACY
== END 2017-04-27 11:45 | disposition home or self-care (01) | DRG 315 ==
LOC: ED 10:58 → INTOOBSV 12:38 → MEDSURG B 12:38 → OBSVTOIN 13:33
PROVIDERS: ADMIT Internal Medicine; ATTEND Internal Medicine
DX: I95.9 Hypotension, unspecified (principal); A04.7 Enterocolitis due to Clostridium difficile; E87.1 Hypo-osmolality and hyponatremia; C79.52 Secondary malignant neoplasm of bone marrow; C61 Malignant neoplasm of prostate; R53.1 Weakness; R42 Dizziness and giddiness; E86.0 Dehydration; D64.9 Anemia, unspecified; E53.8 Deficiency of other specified B group vitamins; R60.0 Localized edema; I25.10 Atherosclerotic heart disease of native coronary artery without angina pectoris; E78.5 Hyperlipidemia, unspecified; I10 Essential (primary) hypertension; J44.9 Chronic obstructive pulmonary disease, unspecified; E11.9 Type 2 diabetes mellitus without complications; G62.9 Polyneuropathy, unspecified; I12.9 Hypertensive chronic kidney disease with stage 1 through stage 4 chronic kidney disease, or unspecified chronic kidney disease; E11.22 Type 2 diabetes mellitus with diabetic chronic kidney disease; N18.9 Chronic kidney disease, unspecified; Z95.828 Presence of other vascular implants and grafts; Z95.1 Presence of aortocoronary bypass graft; Z79.899 Other long term (current) drug therapy
CPT/HCPCS: 36415; 76770; 80053; 82550; 83605; 84145; 84484; 85007; 85025; 85610; 85730; 87040; 87493; 93005; 93010; 97802; 99223; 99232; 99239; 99284

== ENCOUNTER 2017-06-14 14:01 | Observation (INO) ==
--- NOTE | 2017-06-14 17:29 | ED.PDOC ---
General ED Provider: Dr. ZEV KAUFFMAN Chief Complaint: Non-specific Complaint Stated Complaint: Patient complains of weakness and lightheadedness when attempts to stand up. Known hx of metastatic prostate cancer with diminished rbc production and anemia. Time Seen by Physician: 17:27 Mode of Arrival: Wheelchair Information Source: Patient, Family Exam Limitations: No limitations Primary Care Provider: CALOS VÁSQUEZ Nursing and Triage Documentation Reviewed and Agree: Yes Past Medical History - Past Medical History Previously Healthy: No Endocrine: Reports: DM 2, Dyslipidemia Cardiovascular: Reports: Hypertension Respiratory: Reports: COPD Hematological: Reports: None Gastrointestinal: Reports: None Genitourinary: Reports: None Neuro/Psych: Reports: None Musculoskeletal: Reports: None Cancer: Reports: None, Other (PROSTATE) - Surgical History General Surgical History: Reports: None - Family History Family History: Reports: None - Social History Smoking Status: Former smoker Hx Substance Use: No Alcohol Screening: None Course - Course Vital Signs: Temp Pulse Resp BP Pulse Ox 06/14/17 14:02 97.5 F L 95 H 20 110/67 93 L Departure - Departure Allergies/Adverse Reactions: Allergies No Known Allergies Allergy (Verified 06/14/17 14:13) Home Medications: Ambulatory Orders Meclizine HCl 25 mg PO TID PRN 10/31/16 Morphine Sulfate [Ms Contin] 15 mg PO BID PRN 10/31/16 Polyethylene Glycol 3350 [Miralax] 17 gm PO DAILY PRN 10/31/16 Pantoprazole Sodium [Protonix] 40 mg PO QDAC #30 tablet. 04/27/17
--- NOTE | 2017-06-14 17:32 | ED.PDOC ---
General ED Provider: Dr. ZEV KAUFFMAN Chief Complaint: Non-specific Complaint Stated Complaint: Patient complains of weakness and lightheadedness when attempts to stand up. Known hx of metastatic prostate cancer with diminished rbc production and anemia. Time Seen by Physician: 17:20 Mode of Arrival: Wheelchair Information Source: Patient, Family Exam Limitations: No limitations Primary Care Provider: CALOS VÁSQUEZ Nursing and Triage Documentation Reviewed and Agree: Yes Miscellaneous Complaint Exam - Complex/Multi-System Complaint/Exam Onset/Duration: 2 or 3 days Symptoms Are: Still present Initial Severity: Mild Current Severity: Moderate Location of Pain: No Pain Associated Signs and Symptoms: Reports: Dizziness (specifically lightheaded with standing), Weakness Related History: Similar Episode/Dx (anemia secondary to prostate cancer. Per PCP: patient refusing chemo or further eval by oncology/hematology. Wishes DNR status but for now want transfusions so he can continue a while longer.) Recent Echo/LV Function: No Respiratory Distress: None JVD Present: No Tachypnea Present: No Stridor Present: No Abdominal Findings: Present: Normal findings Meningeal Signs Positive: No Focal Weakness: Present: None Focal Sensory Loss: Present: None Gait: Normal Gag Reflex Present: Yes Babinski Sign: Negative Right, Negative Left Skin Findings: Present: Normal findings (except pale) Joint Swelling Present: No In-Dwelling Device Present: No Differential Diagnosis: Other (anemia, other illness) Review of Systems - Review Of Systems Constitutional: Reports: Weakness Eyes: Reports: No symptoms Ears, Nose, Mouth, Throat: Reports: No symptoms Respiratory: Reports: No symptoms Cardiac: Reports: Lightheadedness GI: Reports: No symptoms : Reports: No symptoms Musculoskeletal: Reports: No symptoms Skin: Reports: No symptoms Neurological: Reports: No symptoms Hematologic/Lymphatic: Reports: Anemia All Other Systems: Reviewed and Negative Past Medical History - Past Medical History Previously Healthy: No Endocrine: Reports: DM 2, Dyslipidemia Cardiovascular: Reports: Hypertension Respiratory: Reports: COPD Hematological: Reports: None Gastrointestinal: Reports: None Genitourinary: Reports: None Neuro/Psych: Reports: None Musculoskeletal: Reports: None Cancer: Reports: Other (PROSTATE) - Surgical History General Surgical History: Reports: None - Family History Family History: Reports: None - Social History Smoking Status: Former smoker Hx Substance Use: No Alcohol Screening: None Physical Exam - Physical Exam Appearance: Well-appearing, Well-nourished Ill-appearing: None Pain Distress: None Eyes: HOLLY, EOMI, Conjunctiva clear, Conjunctiva pale ENT: Ears normal, Nose normal, Oropharynx normal Neck: Supple Respiratory: Airway patent, Breath sounds clear, Breath sounds equal, Respirations nonlabored Cardiovascular: RRR, Pulses normal, No rub, No murmur GI/: Soft, Nontender, No masses, Bowel sounds normal, No Organomegaly Musculoskeletal: Normal strength, ROM intact, No edema, No calf tenderness Skin: Warm, Dry, Normal color Neurological: Sensation intact, Motor intact, Reflexes intact, Cranial nerves intact, Alert, Oriented Psychiatric: Affect appropriate, Mood appropriate Physician Notification - Case Discussed Physician Notified: Dr Vásquez Time of Notification: 19:15 (observation admission, transfuse 2 units.) Critical Care Note - Critical Care Note Total Time (mins): 0 Course - Course Hematology/Chemistry: 06/14/17 17:40 06/14/17 17:40 Orders, Labs, Meds: Lab Review 06/14/17 06/14/17 06/14/17 17:40 17:40 17:40 WBC 4.74 RBC 2.17 L Hgb 6.3 L Hct 19.2 L MCV 88.5 MCH 29.0 MCHC 32.8 RDW Coeff of Bryn 19.4 H Plt Count 189 Neutrophils % (Manual) 65.0 Band Neutrophils % 14.0 H Lymphocytes % (Manual) 14.0 Monocytes % (Manual) 3.0 Eosinophils % (Manual) 3.0 Metamyelocytes % 1.0 Myelocytes % 5.0 H Anisocytosis 2+ Sodium 131 L Potassium 3.8 Chloride 101 Carbon Dioxide 21 L Anion Gap 12.8 BUN 15 Creatinine 1.19 H Estimated GFR (MDRD) 59.00 BUN/Creatinine Ratio 12.60 Glucose 117 H Calcium 8.0 L Total Bilirubin 0.41 AST 39 H ALT 13 Alkaline Phosphatase 275 H Total Creatine Kinase 50 Troponin I 0.0140 Total Protein 5.6 L Albumin 1.8 L Globulin 3.8 Albumin/Globulin Ratio 0.47 Blood Type O POSITIVE Antibody Screen Negative Crossmatch (AHG) See Detail Orders Category Date Time Status EKG-(ED ONLY) Stat CARDIO 06/14/17 17:28 Completed CBC W/ AUTO DIFF Stat LAB 06/14/17 17:40 Completed CK [CREATINE KINASE] Stat LAB 06/14/17 17:40 Completed COMPREHENSIVE METABOLIC PANEL Stat LAB 06/14/17 17:40 Completed MANUAL DIFFERENTIAL Stat LAB 06/14/17 17:40 Completed Packed Red Blood Cells [PACKED CELLS] Stat LAB 06/14/17 17:40 Results TROPONIN I Stat LAB 06/14/17 17:40 Completed TYPE AND SCREEN Stat LAB 06/14/17 17:40 Results Vital Signs: Temp Pulse Resp BP Pulse Ox 06/14/17 14:02 97.5 F L 95 H 20 110/67 93 L Departure - Departure Time of Disposition: 19:18 Disposition: PLACED OBSERVATION Discharge Problem: Prostate cancer Anemia Qualifiers: Anemia type: unspecified type Qualified Code(s): D64.9 - Anemia, unspecified Condition: Fair Pt referred to PMD for follow-up: Yes Allergies/Adverse Reactions: Allergies No Known Allergies Allergy (Verified 06/14/17 14:13) Home Medications: Ambulatory Orders Meclizine HCl 25 mg PO TID PRN 10/31/16 Morphine Sulfate [Ms Contin] 15 mg PO BID PRN 10/31/16 Polyethylene Glycol 3350 [Miralax] 17 gm PO DAILY PRN 10/31/16 Pantoprazole Sodium [Protonix] 40 mg PO QDAC #30 tablet. 04/27/17 Disposition Discussed With: Patient, Family
[2017-06-14 17:52] LABS: HEMATOCRIT 19.2 % (42.0-52.0); HEMOGLOBIN 6.3 g/dl (14.0-18.0); MEAN CORPUSCULAR HGB CONC 32.8 (31.8-35.4); MEAN CORPUSCULAR VOLUME 88.5 fl (80.0-94.0); PLATELET COUNT 189 10^3/uL (140-440); RED BLOOD COUNT 2.17 10^6/ul (4.70-6.10); WHITE BLOOD COUNT 4.74 K/ul (4.2-10.2)
[2017-06-14 18:09] LABS: ANISOCYTOSIS 2+ (NOT PRESENT)
[2017-06-14 18:17] LABS: ALBUMIN 1.8 g/dL (3.4-5.0); ALBUMIN/GLOBULIN RATIO 0.47; ANION GAP 12.8; BILIRUBIN,TOTAL 0.41 mg/dL (0.00-1.20); BUN/CREATININE RATIO 12.6; CREATININE 1.19 mg/dL (0.60-1.10); POTASSIUM 3.8 mmol/L (3.5-5.1); TOTAL PROTEIN 5.6 g/dL (5.8-8.1); TROPONIN I 0.014 ng/ml (0.0000-0.4000)
[2017-06-14] MEDS ORDERED: TYLENOL PO PRN (19:23)
[2017-06-14 20:28] VITALS: BMI 22.8
[2017-06-15] MEDS ORDERED: MS CONTIN PO PRN (00:58)
[2017-06-15] MEDS ORDERED: MIRALAX PO PRN ×2 (00:58→07:30)
[2017-06-15] MEDS ORDERED: ANTIVERT PO PRN ×2 (00:58→08:00)
[2017-06-15] MEDS ORDERED: PERCOCET 10-325 PO PRN ×3 (01:15→07:30)
[2017-06-15 04:59] LABS: HEMATOCRIT 25.7 % (42.0-52.0); HEMOGLOBIN 8.7 g/dl (14.0-18.0); MEAN CORPUSCULAR HGB CONC 33.9 (31.8-35.4); MEAN CORPUSCULAR VOLUME 85.7 fl (80.0-94.0); PLATELET COUNT 160 10^3/uL (140-440)
[2017-06-15 05:10] LABS: ANISOCYTOSIS NOT PRESENT (NOT PRESENT)
[2017-06-15 06:00] VITALS: BP 162/84; TEMP 98.6
[2017-06-15] MEDS ORDERED: PROTONIX PO SCH (06:30)
[2017-06-15 08:05] LABS: ALBUMIN 1.7 g/dL (3.4-5.0); ALBUMIN/GLOBULIN RATIO 0.47; ANION GAP 11.8; BILIRUBIN,TOTAL 0.55 mg/dL (0.00-1.20); BUN/CREATININE RATIO 12.74; CALCIUM 7.5 mg/dL (8.2-10.2); CREATININE 1.02 mg/dL (0.60-1.10); POTASSIUM 3.8 mmol/L (3.5-5.1); TOTAL PROTEIN 5.3 g/dL (5.8-8.1)
[2017-06-15] MEDS ORDERED: FLOMAX PO SCH (09:00)
[2017-06-15] MEDS ORDERED: BICALUTAMIDE 50 MG PO SCH (09:00)
[2017-06-16] MEDS ORDERED: PROTONIX PO SCH (06:30)
--- NOTE | 2017-06-16 09:45 | PN ---
DATE OF SERVICE: 06/14/17 ADMIT NOTE SUBJECTIVE: The patient was seen and examined in the ER as well as in the office. In fact the patient walked in with complaint of dizziness, light headedness, poor appetite and practically no strength. He looked extremely pale so he was advised to go to the emergency room for further work up and possible transfusion. The patient's hgb from the emergency room reported as 4.3 with hct 18. The patient does not want anything else to be done. He wants to be comfortable. The patient was recently seen by leather goods ii assembler/oncologist Dr. Kim for the prostate cancer with bone metastasis and he declined any hormonal therapy or chemotherapy. According to the patient Dr. Kim says that there is nothing much more he can do. The patient is declining to go to leather goods ii assembler/oncologist. He wants a couple units of blood transfusion and once he gets to feel better he wants to go home and spend quality time with his . PHYSICAL EXAMINATION: HEENT: Head normocephalic, atraumatic. Eyes: Extraocular muscles are intact. Pupils are equal, round and reactive to light and accommodation. Ears: No lesions. Nose appeared normal. Throat: No exudate or erythema. NECK: Supple. No JVD, no carotid bruit. No lymphadenopathy or thyromegaly. LUNGS: Decreased breath sounds but clear to auscultation. Percussion note normal. Chest symmetrical. HEART: S1, S2, no S3. No murmurs. No cyanosis or clubbing. No ascites. Pulses: Dorsalis pedis and posterior tibial pulses +1 to +2 both sides. ABDOMEN: Soft. Nontender. Bowel sounds active. No CVA tenderness. No mass felt. EXTREMITIES: No edema. Full range of motion of all extremities, equal. NEUROLOGIC: No focal deficit. Cranial nerves II through XII are grossly intact. No headache, no double vision or headache. SKIN: Not dry. Intact. Turgor - normal. LYMPHATIC: No palpable lymph nodes/no lymphedema. MUSCULOSKELETAL: Normal joints with no swelling. Muscle tone is normal. ASSESSMENT: 1. Anemia, chronic likely from bone mets. 2. C of the prostate with bone metastasis 3. Dehydration PLAN: 1. Give couple of units of packed red cells and if the condition is stable the patient is to discharged tomorrow. 2. The patient is going to be admitted to observation. TIME SPENT: More than 30 minutes. Plan and coordination of the patient's care discussed in the presence of nurse. LACY
--- NOTE | 2017-06-22 13:07 | PCM.PROG ---
Attending Provider: ATTENDING PROVIDER: Dr. CALOS MARS This patient is seen with Jeanna Main, Nurse Practitioner. DATE OF SERVICE: 06/15/17 SUBJECTIVE: This 77 year old WHITE/ M was hospitalized 06/14/17. The patient is alert, lying in bed. states he feels better. Hemoglobin went up two points after two units transfused. Discussed prostate cancer with metastasis to the bone. He currently sees Dr. Kim and doing palliative care only. REVIEW OF SYSTEMS: CONSTITUTIONAL: No night sweats. No fatigue, malaise, lethargy. No fever or chills. HEENT: Eyes: No visual changes. No eye pain. No eye discharge. ENT: No runny nose. No epistaxis. No sinus pain. No odynophagia. No congestion. RESPIRATORY: No cough, no congestion. No hemoptysis. No shortness of breath. CARDIOVASCULAR: No angina symptoms. No CHF symptoms. No atypical chest pain for CAD. No palpitations. No orthopnea.. GASTROINTESTINAL: No abdominal pain. No nausea or vomiting. No diarrhea or constipation. No hematemesis. No hematochezia. GENITOURINARY: No urgency. No frequency. No dysuria. No hematuria. No obstructive symptoms. No discharge. No pain. No significant abnormal bleeding. MUSCULOSKELETAL: Bone pain. NEUROLOGICAL: Awake, alert, oriented to time, place and person. No headache. No neck pain. No syncope. No seizures. No dizziness. PSYCHIATRIC: Not anxious. No depression. No suicidal thoughts. No homicidal thoughts. SKIN: No rash. No lesions. No wounds. ENDOCRINE: No unexplained weight loss. No weight gain. HEMATOLOGIC/LYMPHATIC: Anemia. No purpura. No petechiae. No prolonged or excessive bleeding. No palpable lymph nodes. PHYSICAL EXAMINATION: GENERAL: The patient is awake, alert and oriented, lying in bed in no distress. VITAL SIGNS: Temperature 98.6 F, Pulse 80, Respiratory Rate 14, BP 162/84, Pulse Ox 98% HEENT: Head normocephalic, atraumatic. Eyes: Extraocular muscles are intact. Pupils are equal, round and reactive to light and accommodation. Ears: No lesions. Nose appeared normal. Throat: No exudate or erythema. NECK: Supple. No JVD, no carotid bruit. No lymphadenopathy or thyromegaly. LUNGS: Diminished breath sounds bilaterally. Clear to auscultation. Percussion note normal. Chest symmetrical. HEART: S1, S2, no S3. No murmurs. No cyanosis or clubbing. No ascites. Pulses: Dorsalis pedis and posterior tibial pulses +1 to +2 both sides. ABDOMEN: Soft. Non-tender. Bowel sounds active. No CVA tenderness. No mass felt. EXTREMITIES: No edema. Full range of motion of all extremities, equal. NEUROLOGIC: No focal deficit. Cranial nerves II through XII are grossly intact. No headache, no double vision or headache. SKIN: Not dry. Intact. Turgor-normal. LYMPHATIC: No palpable lymph nodes/no lymphedema. MUSCULOSKELETAL: Normal joints with no swelling. Muscle tone is normal. LAB REVIEW: 06/15/17 04:56 06/15/17 04:56: WBC 5.40, RBC 3.00 L, Hgb 8.7 L, Hct 25.7 L D, MCV 85.7, MCH 29.0, MCHC 33.9, RDW Coeff of Bryn 17.1 H, Plt Count 160, Neutrophils % (Manual) 70.0, Lymphocytes % (Manual) 19.0, Monocytes % (Manual) 3.0, Eosinophils % ( Manual) 2.0, Metamyelocytes % 5.0 H, Promyelocytes % 1.0 H, Nucleated RBCs 1.0, Anisocytosis Not present ASSESSMENT: 1. Anemia improved. 2. Prostate cancer with bone mets. 3. Hyponatremia PLAN: 1. Continue to monitor HCT and HGB 2. Repeat CMP today 3. Palliative care discussed PROGNOSIS: Poor. Plan and coordination of the patient's care discussed in the presence of Armature Winder Repair Helper and nurse. CONDITION: Stable SCRIBED BY: STEVO RESENDIZ City Dispatch Supervisor scribed while in presence of service performed by Dr. Mars/Jeanna Main APRN on 06/15/17 ([id number])
--- NOTE | 2017-06-22 13:49 | SSS ---
DATE OF SERVICE: 06/15/17 (date of discharge) (06/14/17 date of admission) REASON FOR ADMISSION: Observation - anemia - Hgb 6.3 HISTORY OF PRESENT ILLNESS: This is a 77-year-old male who complained of weakness and being light-headed and dizziness. He has a known history of prostate cancer. Desires palliative care only. PAST HISTORY: 1. Prostate cancer - Dr. Kim 2. COPD 3. Anemia 4. Diabetes mellitus Type 2 5. Dyslipidemia 6. Hypertension 7. Former smoker 8. CAD 9. Status post CABG times four 10. Degenerative disk disease of spine PERSONAL/FAMILY/SOCIAL HISTORY: , resides at home with spouse. Independent with ADLs. He has a wheelchair, walker, cane, bedside commode, hearing aids, glasses. No home health or home making services. No ETOH, no tobacco. Former smoker. REVIEW OF SYSTEMS: CONSTITUTIONAL: Weakness and fatigue. No night sweats. No fever or chills. HEENT: Eyes: No visual changes. No eye pain. No eye discharge. ENT: No runny nose. No epistaxis. No sinus pain. No sore throat. No odynophagia. No ear pain. No congestion. RESPIRATORY: No cough, no congestion. No hemoptysis. No shortness of breath. CARDIOVASCULAR: No angina symptoms. No CHF symptoms. No atypical chest pain for CAD. No palpitations. No orthopnea. GASTROINTESTINAL: No abdominal pain. No nausea or vomiting. No diarrhea or constipation. No hematemesis. No hematochezia. GENITOURINARY: No dysuria. No hematuria. No obstructive symptoms. No discharge. No pain. No significant abnormal bleeding. MUSCULOSKELETAL: No musculoskeletal pain. No joint swelling. NEUROLOGICAL: Awake, alert, oriented to time, place and person. No headache. No neck pain. No syncope. No seizures. Vertigo with position changes. No unifocal or unilateral weakness. PSYCHIATRIC: Not anxious. No depression. No suicidal thoughts. No homicidal thoughts. SKIN: No rash. No lesions. No wounds. ENDOCRINE: No unexplained weight loss. No weight gain. HEMATOLOGIC/LYMPHATIC: No anemia. No purpura. No petechiae. No prolonged or excessive bleeding. No palpable lymph nodes. PHYSICAL EXAMINATION: GENERAL: The patient is a 77-year-old male. VITAL SIGNS: Height 6'1", weight 173 lbs. Admission V/S: BP 150/70 left, 155/ 74 right, temperature 97.4, heart rate 103, respiratory rate 23, sats 98% on room air. HEENT: Pallor positive. Head normocephalic, atraumatic. Eyes: Extraocular muscles are intact. Pupils are equal, round and reactive to light and accommodation. Ears: No lesions. Nose appeared normal. Throat: No exudate or erythema. NECK: Supple. No JVD, no carotid bruit. No lymphadenopathy or thyromegaly. LUNGS: Diminished breath sounds. Clear to auscultation. Percussion note normal. Chest symmetrical. HEART: Regular rate and rhythm. S1, S2, no S3. No murmur, click or rub. No cyanosis or clubbing. No ascites. Pulses: Dorsalis pedis and posterior tibial pulses +1 to +2 both sides. ABDOMEN: Soft. Nontender. Nondistended. No hepatosplenomegaly. Bowel sounds active. No CVA tenderness. No mass felt. EXTREMITIES: No edema. Full range of motion of all extremities, equal. NEUROLOGIC: Alert, oriented times three. No focal deficit. Cranial nerves II through XII are grossly intact. No headache, no double vision or headache. SKIN: Not dry. Intact. Turgor - normal. LYMPHATIC: No palpable lymph nodes/no lymphedema. MUSCULOSKELETAL: Normal joints with no swelling. Muscle tone is normal. Old/present records reviewed Office records reviewed. ALLERGIES: NKDA MEDICATIONS: Percocet ASA Calcium with Vitamin D Flomax Protonix Bicalutamide Meclizine Miralax MS Contin p.r.n. LABS/EKG'S/X-RAY/ECHO/ABG: WBC 4.9, hemoglobin 6.3, platelets 189, hematocrit 19.2. After two units of PRBCs WBC 5.40, hemoglobin 8.7, hematocrit 25.7. Alkaline phosphatase 275+, AST 39+, ALT 13. Sodium 131, Chloride 101, BUN 15, GR 59, glucose 117, K+ 3.8, c02 21, Creatinine 1.19. PROGRESS NOTES: The patient received two units PRBCs. H & H improved. He desires palliative care only and wants to be discharged as soon as possible. Aggreeable to followup in the office. Home today. HOSPITAL COURSE: The patient was admitted after being seen in the office, was found to be very pale, lethargic, feeling poorly. He was then sent to the emergency room. It was found that his hemoglobin was 6.3. He was subsequently admitted for observation , transfused 2 units of packed red blood cells. Upon admission, sodium 131, potassium 3.8, BUN 15, creatinine 1.19. Again, hemoglobin was 6.3. The patient has a history of prostate cancer with bone metastasis. He sees Dr. Kim, Oncologist and saw him about one month ago and at that time has decided to do palliative care only. He is currently on p.o. pain medication for which controls his pain. He has refused to do chemotherapy, radiation or any further treatment for the cancer. This is the cause of his anemia. After being transfused, his hemoglobin today is 8.7, hematocrit 25.7, he states he is feeling much better and would like to go home. The patient will be discharged home per his wishes. He is to continue his home medications, followup with Dr. Kim as needed and followup with us as needed. Will see early next week. He is stable at the time of discharge. Vital signs have been stable. Temperature 98.6, heart rate 80, respirations 14, BP 160/80, pulse ox 98%. He is in stable condition however his prognosis is poor due to the extensive metastasis of the prostate cancer. DIAGNOSES: 1. ANEMIA 2. PROSTATE CARCINOMA WITH MULTIPLE BONE METS 3. HYPERTENSION 4. DIZZINESS 5. SYMPTOMATIC ANEMIA RECOMMENDATIONS/PLAN: 1. D/C home today 2. Return to office in 5 to 7 days, call to schedule 3. Resume home medications 4. No new prescriptions 5. Diet as tolerated 6. Activity as tolerated TIME SPENT: More than 70 minutes. MTDD
== END 2017-06-15 10:18 | disposition home or self-care (01) ==
LOC: ED 14:01 → MEDSURG B 19:38
PROVIDERS: ADMIT Internal Medicine; ATTEND Internal Medicine
DX: C61 Malignant neoplasm of prostate (principal); D63.0 Anemia in neoplastic disease; C79.51 Secondary malignant neoplasm of bone; R42 Dizziness and giddiness; E86.0 Dehydration; E87.1 Hypo-osmolality and hyponatremia; I10 Essential (primary) hypertension; Z95.828 Presence of other vascular implants and grafts; Z79.899 Other long term (current) drug therapy
CPT/HCPCS: 36415; 36430; 80053; 82550; 84484; 85007; 85025; 86850; 86900; 86922; 93005; 93010; 99284

== ENCOUNTER 2017-06-26 11:13 | Outpatient (CLI) | END 2017-06-26 11:14 | disposition home or self-care (01) | LOC: AMBL 11:13 | PROVIDERS: ATTEND Internal Medicine | DX: R55 Syncope and collapse (principal); R03.1 Nonspecific low blood-pressure reading; Z85.9 Personal history of malignant neoplasm, unspecified ==

== ENCOUNTER 2017-07-17 16:44 | Observation (INO) ==
[2017-07-17 16:45] VITALS: BMI 21.7
[2017-07-17 17:30] LABS: BASOPHILS % (AUTO) 0.6 % (0.0-3.0); EOSINOPHILS % (AUTO) 0.4 % (0.0-7.0); HEMATOCRIT 19.6 % (42.0-52.0); HEMOGLOBIN 6.5 g/dl (14.0-18.0); IMMATURE GRANULOCYTE % (AUTO) 3.8 % (0.0-5.0); LYMPHOCYTES % (AUTO) 19.7 (10.0-50.0); MEAN CORPUSCULAR HEMOGLOBIN 30.1 pg (27.0-31.0); MEAN CORPUSCULAR HGB CONC 33.2 (31.8-35.4); MEAN CORPUSCULAR VOLUME 90.7 fl (80.0-94.0); MONOCYTES # (AUTO) 0.4 K/uL (0.4-2.0); NEUTROPHILS # (AUTO) 3.4 K/ul (2.0-6.9); NEUTROPHILS % (AUTO) 68.5; PLATELET COUNT 79 10^3/uL (140-440); RED BLOOD COUNT 2.16 10^6/ul (4.70-6.10); WHITE BLOOD COUNT 4.98 K/ul (4.2-10.2)
[2017-07-17 17:38] LABS: PARTIAL THROMBOPLASTIN TIME 36.2 SEC (23.9-40.0); PROTHROMBIN TIME 12.2 SEC (9.3-11.0)
[2017-07-17 17:50] LABS: ALBUMIN 1.5 g/dL (3.4-5.0); ALBUMIN/GLOBULIN RATIO 0.43; ANION GAP 13.2; BILIRUBIN,TOTAL 0.9 mg/dL (0.00-1.20); BUN/CREATININE RATIO 16.86; CALCIUM 7.9 mg/dL (8.2-10.2); CREATININE 0.83 mg/dL (0.60-1.10); POTASSIUM 3.2 mmol/L (3.5-5.1); TROPONIN I 0.014 ng/ml (0.0000-0.4000)
[2017-07-17] MEDS ORDERED: MORPHINE SULFATE 15 MG PO PRN (18:06)
[2017-07-17] MEDS ORDERED: OXYCODONE ACETAMINOPHEN PO PRN ×22 (18:06)
--- NOTE | 2017-07-17 18:09 | ED.PDOC ---
General ED Provider: Dr. CATRINA MCKENNA Chief Complaint: Weakness Stated Complaint: weakness Time Seen by Physician: 16:45 Mode of Arrival: Stretcher Information Source: Patient, EMT Exam Limitations: No limitations Primary Care Provider: CALOS VÁSQUEZ Nursing and Triage Documentation Reviewed and Agree: Yes Review of Systems - Review Of Systems Constitutional: Reports: Malaise, Weakness Eyes: Reports: No symptoms Ears, Nose, Mouth, Throat: Reports: No symptoms Respiratory: Reports: Cough Cardiac: Reports: No symptoms GI: Reports: No symptoms : Reports: No symptoms Musculoskeletal: Reports: No symptoms Skin: Reports: No symptoms Neurological: Reports: No symptoms Endocrine: Reports: No symptoms Hematologic/Lymphatic: Reports: No symptoms All Other Systems: Reviewed and Negative Past Medical History - Past Medical History Previously Healthy: No Endocrine: Reports: DM 2, Dyslipidemia Cardiovascular: Reports: Hypertension Respiratory: Reports: COPD Hematological: Reports: None Gastrointestinal: Reports: None Genitourinary: Reports: None Neuro/Psych: Reports: None Musculoskeletal: Reports: None Cancer: Reports: Other (PROSTATE) - Surgical History General Surgical History: Reports: None - Family History Family History: Reports: None - Social History Smoking Status: Former smoker Hx Substance Use: No Alcohol Screening: None Physical Exam - Physical Exam Appearance: Ill-appearing Ill-appearing: Moderate Pain Distress: Moderate Eyes: HOLLY, EOMI, Conjunctiva clear ENT: Dry mucosa Respiratory: Airway patent, Breath sounds clear, Breath sounds equal, Respirations nonlabored Cardiovascular: Tachycardia GI/: Soft, Nontender, No masses, Bowel sounds normal, No Organomegaly Musculoskeletal: Normal strength, ROM intact, No edema, No calf tenderness Skin: Warm, Dry, Normal color Neurological: Sensation intact, Motor intact, Reflexes intact, Cranial nerves intact, Alert, Oriented Psychiatric: Affect appropriate, Mood appropriate Interpretation - Radiology Interpretation Radiology Interpretation By: Radiologist - Detail Maker And Fitter Rate: Tachy Rhythm: Sinus - EKG Interpretation Rate: Tachy Rhythm: Sinus Physician Notification - Case Discussed Physician Notified: oleg Time of Notification: 18:08 Admit To: Observation Critical Care Note - Critical Care Note Total Time (mins): 0 Course - Course Hematology/Chemistry: 07/17/17 17:21 07/17/17 17:21 Orders, Labs, Meds: Lab Review 07/17/17 07/17/17 07/17/17 17:21 17:21 17:21 WBC 4.98 RBC 2.16 L Hgb 6.5 L Hct 19.6 L MCV 90.7 MCH 30.1 MCHC 33.2 RDW Coeff of Bryn 17.4 H Plt Count 79 L Immature Gran % (Auto) 3.8 Neut % (Auto) 68.5 Lymph % (Auto) 19.7 Bureau % (Auto) 7.0 Eos % (Auto) 0.4 Baso % (Auto) 0.6 Immature Gran # (Auto) 0.2 Neut # 3.4 Lymph # 1.0 Bureau # 0.4 Eos # 0.0 Baso # 0.0 PT 12.2 H INR 1.21 APTT 36.2 Sodium 135 L Potassium 3.2 L Chloride 104 Carbon Dioxide 21 L Anion Gap 13.2 BUN 14 Creatinine 0.83 Estimated GFR (MDRD) 90.00 BUN/Creatinine Ratio 16.86 Glucose 95 Calcium 7.9 L Total Bilirubin 0.90 AST 41 H ALT 9 L Alkaline Phosphatase 228 H Total Creatine Kinase 43 Troponin I 0.0140 Total Protein 5.0 L Albumin 1.5 L Globulin 3.5 Albumin/Globulin Ratio 0.43 Orders Category Date Time Status PLACE PATIENT OBSERVATION .TO MEDS[facility] (MONITORED BED ADMISSION 07/17/17 17: 59 Ordered ) EKG-(ED ONLY) Stat CARDIO 07/17/17 17:05 Completed EKG-(IP & OP ONLY) DAILY CARDIO 07/18/17 06:00 Ordered EKG-(IP & OP ONLY) DAILY CARDIO 07/19/17 06:00 Ordered EKG-(IP & OP ONLY) DAILY CARDIO 07/20/17 06:00 Ordered ACTIVITY .Complete BR CARE 07/17/17 17:59 Ordered INTAKE & OUTPUT Q8HR CARE 07/17/17 18:00 Ordered ORDER H&H 1HR POST TRANSFUSION ONCE CARE 07/17/17 18:05 Ordered PRBC LEUKOREDUCED ONCE CARE 07/17/17 18:01 Ordered PRBC LEUKOREDUCED ONCE CARE 07/17/17 18:05 Ordered TELEMETRY MONITORING TELE CARE 07/17/17 18:00 Ordered VITAL SIGNS Q8HR CARE 07/17/17 17:59 Ordered REGULAR DIET DIETARY 07/17/17 Dinner Ordered ED IV/MEDIPORT/POWERPORT .ONCE EMERGENCY 07/17/17 17:05 Active CBC W/ AUTO DIFF DAILY@0600 LAB 07/18/17 06:00 Ordered CBC W/ AUTO DIFF DAILY@0600 LAB 07/19/17 06:00 Ordered CBC W/ AUTO DIFF Stat LAB 07/17/17 17:21 Completed COMPREHENSIVE METABOLIC PANEL DAILY@0600 LAB 07/18/17 06:00 Ordered COMPREHENSIVE METABOLIC PANEL DAILY@0600 LAB 07/19/17 06:00 Ordered COMPREHENSIVE METABOLIC PANEL Stat LAB 07/17/17 17:21 Completed CREATINE KINASE Q8H LAB 07/18/17 00:15 Ordered CREATINE KINASE Q8H LAB 07/18/17 08:15 Ordered CREATINE KINASE Stat LAB 07/17/17 17:21 Completed PACKED CELLS Routine LAB 07/17/17 18:05 Ordered PARTIAL THROMBOPLASTIN TIME Stat LAB 07/17/17 17:21 Completed PT WITH INR Stat LAB 07/17/17 17:21 Completed TROPONIN I Q8H LAB 07/18/17 00:15 Ordered TROPONIN I Q8H LAB 07/18/17 08:15 Ordered TROPONIN I Stat LAB 07/17/17 17:21 Completed TYPE AND SCREEN Routine LAB 07/17/17 18:05 Ordered 0.9 % Sodium Chloride [Saline Flush] MEDS 07/17/17 17:05 Ordered 1 syr IVF PRN PRN Morphine Sulfate [Ms Contin] MEDS 07/17/17 18:06 Ordered 15 mg PO DAILY PRN Oxycodone-Acetaminophen 10-325 [Percocet 10-325] MEDS 07/17/17 18:06 Ordered 1 tab PO Q6H PRN Pantoprazole Sodium [Protonix] MEDS 07/18/17 06:30 Ordered 40 mg PO QDAC Sodium Chloride 0.9% [Sodium Chloride] 1,000 ml MEDS 07/17/17 18:00 Ordered IV 75 mls/hr Tamsulosin HCl [Flomax] MEDS 07/18/17 09:00 Ordered 0.4 mg PO DAILY CHEST, 1V AP ONLY Stat RADS 07/17/17 17:05 Taken Medications Generic Name Dose Route Start Last Admin Trade Name Freq PRN Reason Stop Dose Admin Sodium Chloride 1,000 mls @ 75 mls/hr 07/17/17 18:00 Sodium Chloride IV .[id number] AMMON Sodium Chloride 1 syr 07/17/17 17:05 Saline Flush IVF PRN PRN To flush IV Vital Signs: Temp Pulse Resp BP Pulse Ox 07/17/17 16:45 97 F L 109 H 16 118/56 L 100 Departure - Departure Time of Disposition: 18:08 Disposition: PLACED OBSERVATION Discharge Problem: Anemia Qualifiers: Anemia type: unspecified type Qualified Code(s): D64.9 - Anemia, unspecified Instructions: Anemia (ED) Condition: Fair Pt referred to PMD for follow-up: Yes (admitt now) Allergies/Adverse Reactions: Allergies No Known Allergies Allergy (Verified 07/17/17 16:52) Home Medications: Ambulatory Orders Meclizine HCl 25 mg PO TID PRN 10/31/16 Morphine Sulfate [Ms Contin] 15 mg PO DAILY PRN 10/31/16 Polyethylene Glycol 3350 [Miralax] 17 gm PO DIRECTED PRN 10/31/16 Pantoprazole Sodium [Protonix] 40 mg PO QDAC #30 tablet. 04/27/17 Calcium Carbonate/Vitamin D3 [Calcium 600 + Vit D 400 Tablet] 1 each PO DAILY Oxycodone-Acetaminophen 10-325 [Percocet 10-325] 1 tab PO Q6H PRN 06/15/17 Tamsulosin HCl [Flomax] 0.4 mg PO DAILY 06/15/17
[2017-07-18] MEDS: SODIUM CHLORIDE 1,000 ML IV SCH ×2 (02:47→08:49)
[2017-07-18 05:08] LABS: BASOPHILS % (AUTO) 0.7 % (0.0-3.0); EOSINOPHILS % (AUTO) 0.5 % (0.0-7.0); HEMOGLOBIN 9.2 g/dl (14.0-18.0); IMMATURE GRANULOCYTE % (AUTO) 3.3 % (0.0-5.0); LYMPHOCYTES # (AUTO) 1.1 K/uL (0.60-3.4); LYMPHOCYTES % (AUTO) 19.6 (10.0-50.0); MEAN CORPUSCULAR HEMOGLOBIN 31.1 pg (27.0-31.0); MEAN CORPUSCULAR HGB CONC 35.4 (31.8-35.4); MEAN CORPUSCULAR VOLUME 87.8 fl (80.0-94.0); MONOCYTES # (AUTO) 0.4 K/uL (0.4-2.0); MONOCYTES % (AUTO) 6.3 (0-10); NEUTROPHILS # (AUTO) 3.8 K/ul (2.0-6.9); NEUTROPHILS % (AUTO) 69.6; PLATELET COUNT 68 10^3/uL (140-440); RED BLOOD COUNT 2.96 10^6/ul (4.70-6.10); WHITE BLOOD COUNT 5.52 K/ul (4.2-10.2)
[2017-07-18 05:22] VITALS: TEMP 98.8
[2017-07-18 05:29] LABS: ALBUMIN 1.5 g/dL (3.4-5.0); ALBUMIN/GLOBULIN RATIO 0.44; ANION GAP 11.1; BILIRUBIN,TOTAL 1.04 mg/dL (0.00-1.20); BUN/CREATININE RATIO 17.07; CALCIUM 7.6 mg/dL (8.2-10.2); CREATININE 0.82 mg/dL (0.60-1.10); POTASSIUM 3.1 mmol/L (3.5-5.1); TOTAL PROTEIN 4.9 g/dL (5.8-8.1)
[2017-07-18 05:35] LABS: TROPONIN I 0.017 ng/ml (0.0000-0.4000)
[2017-07-18] MEDS ORDERED: NON-FORMULARY MEDICATION (Pantoprazole Sodium [Protonix] 40 MG) PO SCH ×22 (06:30)
--- NOTE | 2017-07-18 07:19 | DI ---
EXAM: Single frontal view of the chest HISTORY: Cough. COMPARISON: Chest x-ray 04/24/[address] chest 07/03/2017 FINDINGS: Cardiomediastinal silhouette is unchanged with stable Port-A-Cath. Sternotomy wires are un changed. The lungs are mildly hyperinflated. There is no pneumothorax. There is minimal blunting t he costophrenic angles. There is no consolidation, nodule or mass. IMPRESSION: 1. No acute consolidation with questionable small pleural effusions are relatively unchanged from re cent CT. 2. Mild hyperinflation.
[2017-07-18] MEDS ORDERED: NON-FORMULARY MEDICATION (Tamsulosin Hcl [Flomax] 0.4 MG) PO SCH ×21 (09:00)
[2017-07-18 09:27] LABS: TROPONIN I 0.024 ng/ml (0.0000-0.4000)
--- NOTE | 2017-07-18 10:38 | PCM.PROG ---
Attending Provider: ATTENDING PROVIDER: Dr. CALOS MARS This patient is seen with Jeanna Main, Nurse Practitioner. DATE OF SERVICE: 07/18/17 SUBJECTIVE: This 77 year old WHITE/ M was hospitalized 07/17/17. The patient is alert, lying in bed. He states he feels better after receiving blood. I discussed hospice care with patient and at this time he refuses. Also discussed , pain control and probability of recurring anemia - the patient demonstrates understanding. At this point, will continue with Home Health only and no hospice. REVIEW OF SYSTEMS: CONSTITUTIONAL: Weakness. No night sweats. No fever or chills. Pallor positive. HEENT: Eyes: No visual changes. No eye pain. No eye discharge. ENT: No runny nose. No epistaxis. No sinus pain. No odynophagia. No congestion. RESPIRATORY: No cough, no congestion. No hemoptysis. No shortness of breath. CARDIOVASCULAR: No angina symptoms. No CHF symptoms. No atypical chest pain for CAD. No palpitations. No orthopnea.. GASTROINTESTINAL: No abdominal pain. No nausea or vomiting. No diarrhea or constipation. No hematemesis. No hematochezia. GENITOURINARY: No urgency. No frequency. No dysuria. No hematuria. No obstructive symptoms. No discharge. No pain. No significant abnormal bleeding. MUSCULOSKELETAL: No musculoskeletal pain; no joint swelling. NEUROLOGICAL: Awake, alert, oriented to time, place and person. No headache. No neck pain. No syncope. No seizures. No dizziness. PSYCHIATRIC: Not anxious. No depression. No suicidal thoughts. No homicidal thoughts. SKIN: No rash. No lesions. No wounds. ENDOCRINE: No unexplained weight loss. No weight gain. HEMATOLOGIC/LYMPHATIC: Anemia. No purpura. No petechiae. No prolonged or excessive bleeding. No palpable lymph nodes. PHYSICAL EXAMINATION: GENERAL: The patient is awake, alert and oriented, lying in bed in no distress. Pallor positive. VITAL SIGNS: Temperature 98.8 F, Pulse 93, Respiratory Rate 16, BP 144/79, Pulse Ox 98% HEENT: Head normocephalic, atraumatic. Eyes: Extraocular muscles are intact. Pupils are equal, round and reactive to light and accommodation. Ears: No lesions. Nose appeared normal. Throat: No exudate or erythema. NECK: Supple. No JVD, no carotid bruit. No lymphadenopathy or thyromegaly. LUNGS: Diminished breath sounds. Clear to auscultation. Percussion note normal. Chest symmetrical. HEART: S1, S2, no S3. No murmurs. No cyanosis or clubbing. No ascites. Pulses: Dorsalis pedis and posterior tibial pulses +1 to +2 both sides. ABDOMEN: Soft. Non-tender. Bowel sounds active. No CVA tenderness. No mass felt. EXTREMITIES: No edema. Full range of motion of all extremities, equal. NEUROLOGIC: No focal deficit. Cranial nerves II through XII are grossly intact. No headache, no double vision or headache. SKIN: Not dry. Intact. Turgor-normal. LYMPHATIC: No palpable lymph nodes/no lymphedema. MUSCULOSKELETAL: Normal joints with no swelling. Muscle tone is normal. LAB REVIEW: 07/18/17 04:30 07/18/17 04:30 07/18/17 04:30: Sodium 132 L, Potassium 3.1 L, Chloride 104, Carbon Dioxide 20 L , Anion Gap 11.1, BUN 14, Creatinine 0.82, Estimated GFR (MDRD) 91.00, BUN/ Creatinine Ratio 17.07, Glucose 86, Calcium 7.6 L, Total Bilirubin 1.04, AST 40 H, ALT 9 L, Alkaline Phosphatase 243 H, Total Protein 4.9 L, Albumin 1.5 L, Globulin 3.4, Albumin/Globulin Ratio 0.44 07/18/17 04:30: WBC 5.52, RBC 2.96 L, Hgb 9.2 L, Hct 26.0 L D, MCV 87.8, MCH 31.1 H, MCHC 35.4, RDW Coeff of Bryn 16.4 H, Plt Count 68 L, Immature Gran % ( Auto) 3.3, Neut % (Auto) 69.6, Lymph % (Auto) 19.6, [place] % (Auto) 6.3, Eos % ( Auto) 0.5, Baso % (Auto) 0.7, Immature Gran # (Auto) 0.2, Neut # 3.8, Lymph # 1.1, [place]undy # 0.4, Eos # 0.0, Baso # 0.0 07/18/17 04:30: Total Creatine Kinase 39, Troponin I 0.0170 07/17/17 18:19: Blood Type O POSITIVE, Antibody Screen Negative, Crossmatch (AHG ) See Detail ASSESSMENT: 1. ANEMIA 2. PROSTATE CANCER WITH BONE METS, PATIENT DECLINES TREATMENT 3. GENERALIZED WEAKNESS PLAN: 1. K-Tab 20 mEq twice a day for 2 weeks 2. Continue following with Dr. Kim 3. Continue with Home Health - patient refuses hospice 4. Prognosis discussed and patient demonstrates understanding 5. D/C home per patient request Plan and coordination of the patient's care discussed in the presence of Envelope Cutter and nurse. CONDITION: Stable SCRIBED BY: STEVO RESENDIZ Logistics Lead scribed while in presence of service performed by Dr. Mars/Jeanna Main APRN on 07/18/17 ([id number])
[2017-07-18] MEDS ORDERED: LOMOTIL PO STA (10:41)
[2017-07-18 10:51] VITALS: BP 139/71
--- NOTE | 2017-07-19 13:44 | PN ---
DATE OF SERVICE: 07/18/17 SUBJECTIVE: The patient was hospitalize with anemia. The patient was seen by Dr. Kim and we got a call from his office on 07/17/17 that his hgb was 6.5 with hct of 18 and needs to have blood transfusion as he is feeling weak. The patient was seen in the emergency room by ER attending and was noted to have sinus tachycardia and dizziness with light headedness and was hospitalized under observation and given two units of packed red blood cells. His hgb went up more than 9 with hct of 27. He felt better. On the morning of discharge I saw the patient again. The was explained about the findings. She has Alzheimer's and she is forgetful. I had explained to her so many times but I explained to her again that because of metastasis of the his prostate cancer to the bones and his overall status he has anemia which is going to be persistent and he is going to require blood transfusion frequently. The patient is advised to followup with Dr. Kim. CONDITION: Stable. No evidence of fluid overload. No symptoms of CHF or coronary insufficiency. TIME SPENT: More than 30 minutes. Plan and coordination of the patient's care discussed in the presence of nurse. LACY
--- NOTE | 2017-07-19 13:46 | PN ---
07/17/17: Level 5 07/18/17: D as in discharge For observation. The patient was seen on 07/17/17 in the hospital. LACY
--- NOTE | 2017-08-18 09:58 | SSS ---
DATE OF SERVICE: 07/18/17 REASON FOR ADMISSION, OBSERVATION: Anemia HISTORY OF PRESENT ILLNESS: Has chronic anemia due to prostate cancer with bone metastasis. REVIEW OF SYSTEMS: CONSTITUTIONAL: No night sweats. Malaise. No fever or chills. Weakness. HEENT: Eyes: No visual changes. No eye pain. No eye discharge. ENT: No runny nose. No epistaxis. No sinus pain. No sore throat. No odynophagia. No ear pain. No congestion. RESPIRATORY: Cough, dry, no congestion. No hemoptysis. No shortness of breath. CARDIOVASCULAR: No angina symptoms. No CHF symptoms. No atypical chest pain for CAD. No palpitations. No orthopnea. GASTROINTESTINAL: No abdominal pain. No nausea or vomiting. No diarrhea or constipation. No hematemesis. No hematochezia. GENITOURINARY: No dysuria. No hematuria. No obstructive symptoms. No discharge. No pain. No significant abnormal bleeding. MUSCULOSKELETAL: No musculoskeletal pain. No joint swelling. NEUROLOGICAL: Awake, alert, oriented to time, place and person. No headache. No neck pain. No syncope. No seizures. No dizziness. PSYCHIATRIC: Not anxious. No depression. No suicidal thoughts. No homicidal thoughts. SKIN: No rash. No lesions. No wounds. ENDOCRINE: No unexplained weight loss. No weight gain. HEMATOLOGIC/LYMPHATIC: No anemia. No purpura. No petechiae. No prolonged or excessive bleeding. No palpable lymph nodes. PAST HISTORY: Diabetes type 2 Dyslipidemia Hypertension COPD Diabetic neuropathy Vertigo CABG x4 2006 Constipation DDD PERSONAL/FAMILY HISTORY/SOCIAL HISTORY: , lives with spouse. Nonsmoker (Former Smoker) no alcohol or drug use. PHYSICAL EXAMINATION: VITAL SIGNS: Height 6'1, weight 164 pounds, BMI 21.7, temperature 98.5, pulse 101, respiratory rate 16, blood pressure 114/65 and pulse ox 96% on room air. HEENT: Head normocephalic, atraumatic. Eyes: Extraocular muscles are intact. Pupils are equal, round and reactive to light and accommodation. Ears: No lesions. Nose appeared normal. Throat: No exudate or erythema. NECK: Supple. No JVD, no carotid bruit. No lymphadenopathy or thyromegaly. LUNGS: Clear to auscultation. Percussion note normal. Chest symmetrical. HEART: S1, S2, no S3. I/ Systolic murmur. No cyanosis or clubbing. No ascites. Pulses: Dorsalis pedis and posterior tibial pulses +1 to +2 both sides. ABDOMEN: Soft. Nontender. Bowel sounds active. No CVA tenderness. No mass felt. EXTREMITIES: No edema. Full range of motion of all extremities, equal. NEUROLOGIC: No focal deficit. Cranial nerves II through XII are grossly intact. No headache, no double vision or headache. SKIN: Not dry. Intact. Turgor - normal. LYMPHATIC: No palpable lymph nodes/no lymphedema. MUSCULOSKELETAL: Normal joints with no swelling. Muscle tone is normal. Old/present records reviewed: Yes Office records reviewed: Yes. ALLERGIES: No known allergies MEDICATIONS: Miralax MS Contin Meclizine Protonix Flomax Calcium with Vitamin D Percocet LABS/EKG'S/X-RAY/ECHO/ABG: Hgb 6.5, hct 19.6, PT 12.2, INR 1.21, sodium 135, potassium 3.2, chloride 21, BIcarb 7.9, AST 41, ALT 9, Alkaline phosphatase 228, total protein 5.0, Albumin 1.5, Chest x-ray mild hyperinflation . EKG sinus tachycardiac. PROGRESS NOTES: See EMR. DIAGNOSES: 1. Severe anemia Symptomatic 2. Sinus tachycardia 3. Dizziness 4. Cancer of Prostate with METS 5. CABG RECOMMENDATIONS/PLAN: 1. 2 units packed red blood cells given now, HGB/HCT 7.6 and 28. Feels better 2. and patient explained about followup with Dr. Kim and me. CONDITION: Stable TIME SPENT: More than 70 minutes. MTDD
== END 2017-07-18 11:08 | disposition home or self-care (01) ==
LOC: ED 16:44 → MEDSURG B 18:13
PROVIDERS: ADMIT Internal Medicine; ATTEND Internal Medicine
DX: D64.9 Anemia, unspecified (principal); C61 Malignant neoplasm of prostate; C79.51 Secondary malignant neoplasm of bone; R00.0 Tachycardia, unspecified; R42 Dizziness and giddiness; R53.1 Weakness; I10 Essential (primary) hypertension; Z95.828 Presence of other vascular implants and grafts; Z95.1 Presence of aortocoronary bypass graft; Z95.5 Presence of coronary angioplasty implant and graft; Z87.891 Personal history of nicotine dependence; Z79.899 Other long term (current) drug therapy
CPT/HCPCS: 36415; 36430; 80053; 82550; 84484; 85025; 85610; 85730; 86850; 86900; 86922; 87081; 93005; 93010; 99284

== ENCOUNTER 2017-07-24 09:55 | Inpatient (IN) | payer OTHER ==
--- NOTE | 2017-07-24 10:18 | ED.PDOC ---
General ED Provider: Dr. SHELBY MORAN Chief Complaint: Weakness Stated Complaint: Reported weakness (by ) Time Seen by Physician: 10:05 Mode of Arrival: Wheelchair Information Source: Patient Primary Care Provider: CALOS VÁSQUEZ Nursing and Triage Documentation Reviewed and Agree: Yes Review of Systems - Review Of Systems Constitutional: Reports: Weakness Eyes: Reports: No symptoms Ears, Nose, Mouth, Throat: Reports: No symptoms Respiratory: Reports: No symptoms Cardiac: Reports: No symptoms GI: Reports: No symptoms Neurological: Reports: Weakness All Other Systems: Reviewed and Negative Past Medical History - Past Medical History Previously Healthy: No Endocrine: Reports: DM 2, Dyslipidemia Cardiovascular: Reports: Hypertension Respiratory: Reports: COPD Hematological: Reports: None Gastrointestinal: Reports: None Genitourinary: Reports: None Neuro/Psych: Reports: None Musculoskeletal: Reports: None Cancer: Reports: Other (PROSTATE) - Surgical History General Surgical History: Reports: None - Family History Family History: Reports: None - Social History Smoking Status: Former smoker Hx Substance Use: No Alcohol Screening: None Physical Exam - Physical Exam Appearance: Ill-appearing, Thin Ill-appearing: Moderate Pain Distress: None Eyes: HOLLY, EOMI, Conjunctiva clear ENT: Nose normal, Oropharynx normal Neck: Supple Respiratory: Airway patent, Breath sounds clear, Breath sounds equal Cardiovascular: RRR, Pulses normal GI/: Soft, Nontender Musculoskeletal: No edema, No calf tenderness Skin: Warm, Dry, Pale Neurological: Sensation intact, Motor intact, Reflexes intact, Alert, Oriented Psychiatric: Affect appropriate, Mood appropriate Interpretation - Radiology Interpretation Radiology Interpretation By: Radiologist Exam Interpreted: Portable CXR Xray Comments: Small left pleural effusion - EKG Interpretation Time of EKG #1: 10:24 Rate: Normal Rhythm: Sinus Ectopy: PVCs (occasional) [place]: NL ST Segment: Normal Re-Evaluation - Re-Evaluation Time of Re-Evaluation: 11:45 Status: Improved (Feels better than on arrival) Vital Signs Stable: Yes Appearance: NAD Skin: Warm and Dry Neuro: Alert and Oriented X3 Physician Notification - Case Discussed Physician Notified: Dr. Vásquez Time of Notification: 11:45 (Discussed patient/admission) Critical Care Note - Critical Care Note Total Time (mins): 35 Course - Course Hematology/Chemistry: 07/24/17 10:15 07/24/17 10:15 Orders, Labs, Meds: Lab Review 07/24/17 07/24/17 07/24/17 10:15 10:15 10:15 WBC 6.75 RBC 2.40 L Hgb 7.5 L Hct 21.7 L MCV 90.4 MCH 31.3 H MCHC 34.6 RDW Coeff of Bryn 17.2 H Plt Count 75 L Immature Gran % (Auto) 3.3 Neut % (Auto) 67.4 Lymph % (Auto) 21.6 [place] % (Auto) 7.0 Eos % (Auto) 0.3 Baso % (Auto) 0.4 Immature Gran # (Auto) 0.2 Neut # 4.6 Lymph # 1.5 [place] # 0.5 Eos # 0.0 Baso # 0.0 Puncture Site O2 Saturation ABG pH ABG pCO2 ABG pO2 ABG HCO3 ABG Total CO2 ABG Base Excess Rivera Test FiO2 % Sodium 134 L Potassium 3.2 L Chloride 102 Carbon Dioxide 17 L Anion Gap 18.2 BUN 15 Creatinine 0.92 Estimated GFR (MDRD) 80.00 BUN/Creatinine Ratio 16.30 Glucose 135 H Lactic Acid 33.2 H Calcium 7.7 L Total Bilirubin 1.23 H AST 54 H ALT 13 Alkaline Phosphatase 235 H Troponin I 0.0300 Total Protein 5.1 L Albumin 1.8 L Globulin 3.3 Albumin/Globulin Ratio 0.55 Procalcitonin Blood Type Antibody Screen Crossmatch ([facility]) 07/24/17 07/24/17 07/24/17 10:15 10:30 10:45 WBC RBC Hgb Hct MCV MCH MCHC RDW Coeff of Bryn Plt Count Immature Gran % (Auto) Neut % (Auto) Lymph % (Auto) [place] % (Auto) Eos % (Auto) Baso % (Auto) Immature Gran # (Auto) Neut # Lymph # [place] # Eos # Baso # Puncture Site L rad O2 Saturation 98.0 ABG pH 7.477 H ABG pCO2 23.8 L ABG pO2 98.0 ABG HCO3 17.6 L ABG Total CO2 18 L ABG Base Excess -6 L Rivera Test + FiO2 % 21.0 Sodium Potassium Chloride Carbon Dioxide Anion Gap BUN Creatinine Estimated GFR (MDRD) BUN/Creatinine Ratio Glucose Lactic Acid Calcium Total Bilirubin AST ALT Alkaline Phosphatase Troponin I Total Protein Albumin Globulin Albumin/Globulin Ratio Procalcitonin 0.22 Blood Type O POSITIVE Antibody Screen Negative Crossmatch ([facility]) See Detail Orders Category Date Time Status ADMIT PATIENT INPATIENT .TO [facility] (MONITORED BED) ADMISSION 07/24/17 11: 36 Active ABG DRAW REQUEST Stat CARDIO 07/24/17 10:36 Completed EKG-(ED ONLY) Stat CARDIO 07/24/17 10:41 Completed OXYGEN Routine CARDIO 07/24/17 11:38 Active ACTIVITY .Complete BR CARE 07/24/17 11:36 Active INTAKE & OUTPUT Q8HR CARE 07/24/17 11:36 Active IV ACCESS ONCE CARE 07/24/17 10:33 Active ORDER H&H 1HR POST TRANSFUSION ONCE CARE 07/24/17 10:29 Active PRBC LEUKOREDUCED ONCE CARE 07/24/17 10:29 Active TELEMETRY MONITORING TELE CARE 07/24/17 11:37 Active VITAL SIGNS Q8HR CARE 07/24/17 11:36 Active REGULAR DIET DIETARY 07/24/17 Lunch Ordered ED APPLY O2 .ONCE EMERGENCY 07/24/17 10:33 Active ED TECHNICAL STENOGRAPHER APPLIED .ONCE EMERGENCY 07/24/17 10:33 Active ED VITAL SIGNS Q1HR EMERGENCY 07/24/17 10:33 Active OXYGEN [ED APPLY O2] .ONCE EMERGENCY 07/24/17 10:43 Active ARTERIAL BLOOD GAS [ABG] Stat LAB 07/24/17 10:30 Completed BLOOD CULTURE (ED ONLY) Stat LAB 07/24/17 10:15 Received CBC W/ AUTO DIFF DAILY@0600 LAB 07/25/17 06:00 Ordered CBC W/ AUTO DIFF DAILY@0600 LAB 07/26/17 06:00 Ordered CBC W/ AUTO DIFF Stat LAB 07/24/17 10:15 Completed COMPREHENSIVE METABOLIC PANEL DAILY@0600 LAB 07/25/17 06:00 Ordered COMPREHENSIVE METABOLIC PANEL DAILY@0600 LAB 07/26/17 06:00 Ordered COMPREHENSIVE METABOLIC PANEL Stat LAB 07/24/17 10:15 Completed LACTIC ACID Stat LAB 07/24/17 10:15 Completed PACKED CELLS Routine LAB 07/24/17 10:45 Results PROCALCITONIN Stat LAB 07/24/17 10:15 Completed TROPONIN I Stat LAB 07/24/17 10:15 Completed TYPE AND SCREEN Routine LAB 07/24/17 10:45 Results RESUSCITATION STATUS Routine OTHERS 07/24/17 11:36 Ordered CHEST, 1V AP ONLY Stat RADS 07/24/17 10:07 Completed Medications Generic Name Dose Route Start Last Admin Trade Name [place] PRN Reason Stop Dose Admin Calcium/Vitamin D 1 each 07/24/17 12:00 Calcium 500 + Vit D 200 Mg Tablet PO DAILY AMMON Meclizine HCl 25 mg 07/24/17 11:40 Antivert PO TID PRN Dizziness Morphine Sulfate 15 mg 07/24/17 11:42 Ms Contin PO DAILY PRN Severe Pain Oxycodone/Acetaminophen 1 tab 07/24/17 11:42 Percocet 10-325 PO Q6H PRN MODERATE PAIN Pantoprazole Sodium 40 mg 07/24/17 12:00 Protonix PO QDAC AMMON Polyethylene Glycol 17 gm 07/24/17 11:42 Miralax PO DIRECTED PRN Constipation Potassium Chloride 20 meq 07/24/17 12:00 K-Dur PO BID AMMON Tamsulosin HCl 0.4 mg 07/24/17 12:00 Flomax PO DAILY AMMON Vital Signs: Temp Pulse Resp BP Pulse Ox 07/24/17 09:55 96.6 F L 102 H 20 75/51 L 96 Departure - Departure Time of Disposition: 11:50 Disposition: ADMITTED INPATIENT Discharge Problem: Anemia, Weakness Condition: Stable Pt referred to PMD for follow-up: Yes (Follow up with Dr. Vásquez after discharge) Allergies/Adverse Reactions: Allergies No Known Allergies Allergy (Verified 07/24/17 10:00) Home Medications: Ambulatory Orders Meclizine HCl 25 mg PO TID PRN 10/31/16 Morphine Sulfate [Ms Contin] 15 mg PO DAILY PRN 10/31/16 Polyethylene Glycol 3350 [Miralax] 17 gm PO DIRECTED PRN 10/31/16 Pantoprazole Sodium [Protonix] 40 mg PO QDAC #30 tablet. 04/27/17 Calcium Carbonate/Vitamin D3 [Calcium 600 + Vit D 400 Tablet] 1 each PO DAILY Oxycodone-Acetaminophen 10-325 [Percocet 10-325] 1 tab PO Q6H PRN 06/15/17 Tamsulosin HCl [Flomax] 0.4 mg PO DAILY 06/15/17 Potassium Chloride [K-Dur] 20 meq PO BID #28 tab 07/18/17
--- NOTE | 2017-07-24 10:50 | DI ---
EXAM: Chest one view HISTORY: Chest pain COMPARISON: 07/17/2017 TECHNIQUE: Single view of the chest was performed FINDINGS: Left-sided chest port terminates in superior vena cava. No airspace consolidation. No pne umothorax. Blunting left costophrenic angle. The heart is normal in size. The mediastinal contour is normal, noting atherosclerosis. Median sternotomy wires. There are no acute abnormalities of the bones. IMPRESSION: Small left pleural effusion.
[2017-07-24] MEDS ORDERED: ANTIVERT PO PRN (11:40)
[2017-07-24] MEDS ORDERED: MS CONTIN PO PRN (11:42)
[2017-07-24] MEDS ORDERED: MIRALAX PO PRN (11:42)
[2017-07-24 12:50] VITALS: BMI 21.5
[2017-07-24] MEDS: CALCIUM 500 + VIT D 200 MG TABLET PO SCH (13:03)
[2017-07-24] MEDS: FLOMAX PO SCH (13:03)
[2017-07-24] MEDS: PROTONIX PO SCH (13:03)
[2017-07-24] MEDS: K-DUR PO SCH ×2 (13:03→20:48)
[2017-07-24] MEDS: PERCOCET 10-325 PO PRN (20:48)
[2017-07-25] MEDS: PERCOCET 10-325 PO PRN ×4 (04:55→23:09)
[2017-07-25] MEDS: PROTONIX PO SCH (06:09)
[2017-07-25] MEDS: CALCIUM 500 + VIT D 200 MG TABLET PO SCH (08:58)
[2017-07-25] MEDS: FLOMAX PO SCH (08:58)
[2017-07-25] MEDS: K-DUR PO SCH ×2 (08:58→21:28)
[2017-07-25] MEDS: DEXTROSE 5%-1/2NS IV SOLUTION 1,000 ML IV SCH ×2 (10:48→23:27)
--- NOTE | 2017-07-25 10:58 | PCM.PROG ---
Attending Provider: ATTENDING PROVIDER: Dr. CALOS VÁSQUEZ This patient is seen with Jeanna Main, Nurse Practitioner. DATE OF SERVICE: 07/25/17 SUBJECTIVE: This 77 year old WHITE/ M was hospitalized 07/24/17. The patient is sitting up in bed, feeling better after transfusion. No complaints of pain. No dizziness. REVIEW OF SYSTEMS: CONSTITUTIONAL: No night sweats. No fatigue, malaise, lethargy. No fever or chills. HEENT: Eyes: No visual changes. No eye pain. No eye discharge. ENT: No runny nose. No epistaxis. No sinus pain. No odynophagia. No congestion. RESPIRATORY: No cough, no congestion. No hemoptysis. No shortness of breath. CARDIOVASCULAR: No angina symptoms. No CHF symptoms. No atypical chest pain for CAD. No palpitations. No orthopnea.. GASTROINTESTINAL: No abdominal pain. No nausea or vomiting. No diarrhea or constipation. No hematemesis. No hematochezia. GENITOURINARY: No urgency. No frequency. No dysuria. No hematuria. No obstructive symptoms. No discharge. No pain. No significant abnormal bleeding. MUSCULOSKELETAL: No musculoskeletal pain; no joint swelling. NEUROLOGICAL: Awake, alert, oriented to time, place and person. No headache. No neck pain. No syncope. No seizures. No dizziness. PSYCHIATRIC: Not anxious. No depression. No suicidal thoughts. No homicidal thoughts. SKIN: No rash. No lesions. No wounds. ENDOCRINE: No unexplained weight loss. No weight gain. HEMATOLOGIC/LYMPHATIC: No anemia. No purpura. No petechiae. No prolonged or excessive bleeding. No palpable lymph nodes. PHYSICAL EXAMINATION: GENERAL: The patient is awake, alert and oriented, lying in bed in no distress. VITAL SIGNS: Temperature 98.4 F, Pulse 100, Respiratory Rate 16, BP 141/81, Pulse Ox 97% HEENT: Head normocephalic, atraumatic. Eyes: Extraocular muscles are intact. Pupils are equal, round and reactive to light and accommodation. Ears: No lesions. Nose appeared normal. Throat: No exudate or erythema. NECK: Supple. No JVD, no carotid bruit. No lymphadenopathy or thyromegaly. LUNGS: Clear to auscultation. Percussion note normal. Chest symmetrical. HEART: S1, S2, no S3. No murmurs. No cyanosis or clubbing. No ascites. Pulses: Dorsalis pedis and posterior tibial pulses +1 to +2 both sides. ABDOMEN: Soft. Non-tender. Bowel sounds active. No CVA tenderness. No mass felt. EXTREMITIES: No edema. Full range of motion of all extremities, equal. NEUROLOGIC: No focal deficit. Cranial nerves II through XII are grossly intact. No headache, no double vision or headache. SKIN: Not dry. Intact. Turgor-normal. LYMPHATIC: No palpable lymph nodes/no lymphedema. MUSCULOSKELETAL: Normal joints with no swelling. Muscle tone is normal. LAB REVIEW: 07/25/17 04:15 07/25/17 04:15 07/25/17 04:15: Sodium 134 L, Potassium 3.8, Chloride 104, Carbon Dioxide 20 L, Anion Gap 13.8, BUN 16, Creatinine 0.87, Estimated GFR (MDRD) 85.00, BUN/ Creatinine Ratio 18.39, Glucose 89, Calcium 7.5 L, Total Bilirubin 1.34 H, AST 56 H, ALT 13, Alkaline Phosphatase 238 H, Total Protein 4.6 L, Albumin 1.7 L, Globulin 2.9, Albumin/Globulin Ratio 0.59 07/25/17 04:15: WBC 5.56, RBC 2.98 L, Hgb 9.0 L, Hct 25.7 L, MCV 86.2, MCH 30.2 , MCHC 35.0, RDW Coeff of Bryn 17.8 H, Plt Count 53 L, Immature Gran % (Auto) 3.8 , Neut % (Auto) 70.7, Lymph % (Auto) 16.9, [place] % (Auto) 7.6, Eos % (Auto) 0.5, Baso % (Auto) 0.5, Immature Gran # (Auto) 0.2, Neut # 3.9, Lymph # 0.9, [place] # 0.4, Eos # 0.0, Baso # 0.0 07/24/17 22:31: Hgb 9.3 L, Hct 26.7 L ASSESSMENT: 1. Anemia 2. Weakness 3. CA of prostate with bone mets PLAN: 1. Discharge home. 2. The patient refuses Hospice Care. 3. Will continue Home Health. 4. Poor prognosis discussed. Plan and coordination of the patient's care discussed in the presence of It Architect and nurse. CONDITION: Stable SCRIBED BY: STEVO RESENDIZ Double End Tenon Operator scribed while in presence of service performed by Dr. Vásquez/Jeanna Main APRN on 07/25/17 ([id number])
[2017-07-26] MEDS: PROTONIX PO SCH (06:06)
[2017-07-26] MEDS: PERCOCET 10-325 PO PRN ×2 (06:06→13:56)
[2017-07-26] MEDS: FLOMAX PO SCH (10:12)
[2017-07-26] MEDS: K-DUR PO SCH (10:13)
[2017-07-26] MEDS: CALCIUM 500 + VIT D 200 MG TABLET PO SCH (10:13)
--- NOTE | 2017-07-26 12:08 | PCM.PROG ---
Attending Provider: ATTENDING PROVIDER: Dr. CALOS MARS DATE OF SERVICE: 07/26/17 SUBJECTIVE: This 77 year old WHITE/ M was hospitalized 07/24/17. The patient is feeling fine, is less dizzy. He wants to go home. Hemoglobin is 8.2, hematocrit 24. REVIEW OF SYSTEMS: CONSTITUTIONAL: No night sweats. No fatigue, malaise, lethargy. No fever or chills. HEENT: Eyes: No visual changes. No eye pain. No eye discharge. ENT: No runny nose. No epistaxis. No sinus pain. No odynophagia. No congestion. RESPIRATORY: No cough, no congestion. No hemoptysis. No shortness of breath. CARDIOVASCULAR: No angina symptoms. No CHF symptoms. No atypical chest pain for CAD. No palpitations. No orthopnea.. GASTROINTESTINAL: No abdominal pain. No nausea or vomiting. No diarrhea or constipation. No hematemesis. No hematochezia. GENITOURINARY: No urgency. No frequency. No dysuria. No hematuria. No obstructive symptoms. No discharge. No pain. No significant abnormal bleeding. MUSCULOSKELETAL: No musculoskeletal pain; no joint swelling. NEUROLOGICAL: Awake, alert, oriented to time, place and person. No headache. No neck pain. No syncope. No seizures. No dizziness. PSYCHIATRIC: Not anxious. No depression. No suicidal thoughts. No homicidal thoughts. SKIN: No rash. No lesions. No wounds. ENDOCRINE: No unexplained weight loss. No weight gain. HEMATOLOGIC/LYMPHATIC: No anemia. No purpura. No petechiae. No prolonged or excessive bleeding. No palpable lymph nodes. PHYSICAL EXAMINATION: GENERAL: The patient is awake, alert and oriented, lying in bed in no distress. VITAL SIGNS: Temperature 97.9 F, Pulse 59, Respiratory Rate 16, BP 126/74, Pulse Ox 96% HEENT: Head normocephalic, atraumatic. Eyes: Extraocular muscles are intact. Pupils are equal, round and reactive to light and accommodation. Ears: No lesions. Nose appeared normal. Throat: No exudate or erythema. NECK: Supple. No JVD, no carotid bruit. No lymphadenopathy or thyromegaly. LUNGS: Clear to auscultation. Percussion note normal. Chest symmetrical. HEART: S1, S2, no S3. No murmurs. No cyanosis or clubbing. No ascites. Pulses: Dorsalis pedis and posterior tibial pulses +1 to +2 both sides. ABDOMEN: Soft. Non-tender. Bowel sounds active. No CVA tenderness. No mass felt. EXTREMITIES: No edema. Full range of motion of all extremities, equal. NEUROLOGIC: No focal deficit. Cranial nerves II through XII are grossly intact. No headache, no double vision or headache. SKIN: Not dry. Intact. Turgor-normal. LYMPHATIC: No palpable lymph nodes/no lymphedema. MUSCULOSKELETAL: Normal joints with no swelling. Muscle tone is normal. LAB REVIEW: 07/26/17 05:05 07/26/17 05:05 07/26/17 05:05: Sodium 130 L, Potassium 3.9, Chloride 103, Carbon Dioxide 21 L, Anion Gap 9.9, BUN 12, Creatinine 0.82, Estimated GFR (MDRD) 91.00, BUN/ Creatinine Ratio 14.63, Glucose 96, Calcium 7.6 L, Total Bilirubin 1.23 H, AST 50 H, ALT 12, Alkaline Phosphatase 224 H, Total Protein 4.4 L, Albumin 1.7 L, Globulin 2.7, Albumin/Globulin Ratio 0.63 07/26/17 05:05: WBC 4.62, RBC 2.72 L, Hgb 8.2 L, Hct 23.5 L, MCV 86.4, MCH 30.1 , MCHC 34.9, RDW Coeff of Bryn 17.6 H, Plt Count 46 L, Immature Gran % (Auto) 2.4 , Neut % (Auto) 69.4, Lymph % (Auto) 18.4, [place] % (Auto) 7.4, Eos % (Auto) 1.5, Baso % (Auto) 0.9, Immature Gran # (Auto) 0.1, Neut # 3.2, Lymph # 0.9, [place] # 0.3 L, Eos # 0.1, Baso # 0.0 ASSESSMENT: 1. ANEMIA 2. WEAKNESS 3. CA OF THE PROSTATE WITH BONE METS PLAN: 1. Will transfuse one more unit of PRBCs before discharge home today. 2. The patient is advised to come to ER if dizzy or light-headed. 3. Advised to followup with Dr. Kim. 4. Will see next week in the office with Dr. Mars/Jeanna Main APRN. 5. The patient is advised to go to the ER if has dizziness or weakness. 6. Advised good nutrition. 7. Continue iron pills. 8. The patient is DNR. Plan and coordination of the patient's care discussed in the presence of Private Branch Exchange Repairer and nurse. EDUCATION: The is in room and has dementia. Explained about metastatic lesions to the bone and anemia secondary to cancer of the prostate. CONDITION: Stable PROGNOSIS: Poor. SCRIBED BY: STEVO RESENDIZ Partition Setter scribed while in presence of service performed by Dr. CALOS MARS on 07/26/17 ([id number])
--- NOTE | 2017-07-26 12:57 | PN ---
DATE OF SERVICE: 07/24/17 SUBJECTIVE: 77 year old white male who has recent severe anemia this time symptomatic with shortness of breath and weakness came to the emergency room with hgb was 7.5 with hct 21. Very likely the patient's creatinine will drop if patient is hydrated. The patient was hypokalemic. REVIEW OF SYSTEMS: CONSTITUTIONAL: No night sweats. Fatigue. No fever or chills. Weakness. HEENT: Eyes: No visual changes. No eye pain. No eye discharge. ENT: No runny nose. No epistaxis. No sinus pain. No sore throat. No odynophagia. No congestion. RESPIRATORY: No cough, no congestion. No hemoptysis. No shortness of breath. CARDIOVASCULAR: No angina symptoms. No CHF symptoms. No atypical chest pain for CAD. No palpitations. No orthopnea. No PND. GASTROINTESTINAL: No abdominal pain. No nausea or vomiting. No diarrhea or constipation. No hematemesis. No hematochezia. GENITOURINARY: No urgency. No frequency. No dysuria. No hematuria. No obstructive symptoms. No discharge. No pain. No significant abnormal bleeding. MUSCULOSKELETAL: No musculoskeletal pain; no joint swelling. NEUROLOGICAL: No headache. No neck pain. No syncope. No seizures. No dizziness. PSYCHIATRIC: Not anxious. No depression. No suicidal thoughts. No homicidal thoughts. SKIN: No rash. No lesions. No wounds. ENDOCRINE: No unexplained weight loss. No weight gain. HEMATOLOGIC/LYMPHATIC: No anemia. No purpura. No petechiae. No prolonged or excessive bleeding. No palpable lymph nodes. LABS: pH 7.47 with pO2 98, pCO2 23, with 98% saturation on room air. Liver profile negative except for alkaline phosphatase 235. Lactic acid 33.2, potassium 3.2. The patient is on K-tab 20 meq twice a day. hgb 7.5 with hct 21, WBC 6,700 normal differential. ASSESSMENT: 1. Prostatic cancer with metastasis to the bone 2. Recurrent anemia secondary to #1 3. Coronary bypass surgery 4. Hypotension PLAN: 1. Given IV fluids with 2 units of packed red cells 2. The patient doesn't want anything else to be done 3. The patient is DNR 4. The patient's asks the same question over and over again, she has dementia. 5. The patient is being followed by Dr. Kim, Oncologist CONDITION: Stable PROGNOSIS: Extremely poor TIME SPENT: More than 30 minutes. Plan and coordination of the patient's care discussed in the presence of nurse. LACY
--- NOTE | 2017-07-26 13:03 | HP ---
DATE OF SERVICE: 07/24/17 HISTORY OF PRESENT ILLNESS: This 77-year-old white male with history of prostate cancer with bone metastasis , recurrent symptomatic anemia who presented to the emergency room presented by his with extreme weakness, pallor, shortness of breath. He was subsequently admitted. PAST MEDICAL HISTORY: Diabetes mellitus Type 2 Dyslipidemia Hypotension COPD Prostate cancer with bone metastasis Generalized weakness Anemia PAST SURGICAL HISTORY: Status post prostate surgery CABG in 2005 REVIEW OF SYSTEMS: CONSTITUTIONAL: Positive for malaise, weakness. No night sweats. No fever or chills. HEENT: Eyes: No blurred vision. No visual changes. No eye pain. No eye drainage or redness. ENT: No runny nose. No epistaxis. No sinus pain. No sore throat. No odynophagia. No ear pain. No congestion. RESPIRATORY: No cough, no congestion. No hemoptysis. Mild shortness of breath. CARDIOVASCULAR: No angina symptoms. No CHF symptoms. No atypical chest pain for CAD. No palpitations. No orthopnea. GASTROINTESTINAL: Positive for nausea. No vomiting or diarrhea. No abdominal pain. No diarrhea or constipation. No hematemesis. No hematochezia. GENITOURINARY: No urgency. No frequency. No dysuria. No hematuria. No obstructive symptoms. No discharge. No pain. No significant abnormal bleeding. MUSCULOSKELETAL: Positive for generalized weakness. No joint swelling or redness. NEUROLOGICAL: The patient is alert and oriented. Positive for dizziness. No headache. No neck pain. No syncope. No seizures. PSYCHIATRIC: Not anxious. No depression. No suicidal thoughts. No homicidal thoughts. SKIN: No rash. No lesions. No wounds. ENDOCRINE: No unexplained weight loss. No weight gain. HEMATOLOGIC/LYMPHATIC: No anemia. No purpura. No petechiae. No prolonged or excessive bleeding. No palpable lymph nodes. PERSONAL/FAMILY/SOCIAL HISTORY: The patient is . He is a former smoker. He currently lives at home with his . He does not use alcohol. No illicit drug use. MEDICATIONS: Meclizine 25 mg t.i.d. p.r.n. MS Contin 15 mg daily p.r.n. Protonix 40 mg daily Percocet 10 mg q.6hr p.r.n. Flomax 0.4 mg daily Potassium Chloride 20 mEq b.i.d. ALLERGIES: NKDA PHYSICAL EXAMINATION: VITAL SIGNS: Temperature 96.6, heart rate 102, respirations 20, BP 75/51, pulse ox 96%. GENERAL: Head normocephalic, atraumatic. The patient is ill-appearing, thin, pale. Skin is dry. Pale mucous membranes. Patient is in no apparent distress. HEENT: Eyes: Extraocular muscles are intact. Conjunctivae clear. Pupils are equal, round and reactive to light and accommodation. Ears: No lesions. Nose appeared normal. Throat: No exudate or erythema. NECK: Supple. No JVD, no carotid bruit. No lymphadenopathy or thyromegaly. LUNGS: Clear to auscultation with diminished breath sounds bilaterally. Percussion note normal. Chest symmetrical. HEART: Regular rate and rhythm. S1, S2, no S3. No murmurs. No cyanosis or clubbing. No ascites. Pulses: Dorsalis pedis and posterior tibial pulses +1 to +2 both sides. ABDOMEN: Soft. Nontender. Bowel sounds active times four quadrants. No CVA tenderness. No hepatosplenomegaly. EXTREMITIES: No edema. No calf tenderness. Negative Beryl's sign. Full range of motion of all extremities, equal. NEUROLOGIC: The patient is alert and oriented. No focal deficit. Cranial nerves II through XII are grossly intact. No headache, no double vision or headache. SKIN: Pale, warm and dry. Intact. Turgor - normal. LYMPHATIC: No palpable lymph nodes/no lymphedema. MUSCULOSKELETAL: Full range of motion in all extremities. LABS: White count 6.75, hemoglobin 7.5, hematocrit 21.7, platelets 75,000. Sodium 134 , potassium 3.2, chloride 102, BUN 15, creatinine 0.92, glucose 135, lactic acid 33.2, calcium 7.7, total bili 1.23, AST 54, ALT 13, alkaline phosphatase 235. Troponin 0.03, total protein 5.1, albumin 1.8, globulin 3.3. ABGs on room air, oxygen saturation 98, pH 7.477, pc02 23.8, p02 98, bicarb 17.6, total c02 18, base excess negative 6. Chest x-ray shows small left pleural effusion. ASSESSMENT: 1. SYMPTOMATIC ANEMIA 2. PROSTATE CANCER WITH BONE METASTASIS 3. SHORTNESS OF BREATH 4. DIZZINESS 5. WEAKNESS 6. HISTORY OF CORONARY ARTERY DISEASE PLAN: 1. Admit the patient to the floor 2. Type and cross 2 units of blood, administer 2 units of packed red blood cells with repeat H & H 3. Routine telemetry 4. CBC, CMP daily 5. Continue home medications 6. Regular diet 7. We will follow closely TIME SPENT: More than 70 minutes. LACY
--- NOTE | 2017-07-26 14:44 | PN ---
CODING FOR BILLING 07/24/17 ADMISSION DAY LEVEL 5 07/25/17 INTERMEDIATE 07/26/17 DISCHARGE - EXTENSIVE MTDD
[2017-07-26 15:52] VITALS: BP 144/72; TEMP 98.3
--- NOTE | 2017-08-04 08:13 | PN ---
DATE OF SERVICE: 07/25/17 SUBJECTIVE: 77 year old white male hospitalized with symptomatic anemia with shortness of breath and weakness. The patient's hgb is 9 and hct 25. PHYSICAL EXAMINATION: HEENT: Head normocephalic, atraumatic. Eyes: Extraocular muscles are intact. Pupils are equal, round and reactive to light and accommodation. Ears: No lesions. Nose appeared normal. Throat: No exudate or erythema. NECK: Supple. No JVD, no carotid bruit. No lymphadenopathy or thyromegaly. LUNGS: Clear to auscultation. Percussion note normal. Chest symmetrical. HEART: S1, S2, no S3. No murmurs. No cyanosis or clubbing. No ascites. Pulses: Dorsalis pedis and posterior tibial pulses +1 to +2 both sides. ABDOMEN: Soft. Nontender. Bowel sounds active. No CVA tenderness. No mass felt. EXTREMITIES: No edema. Full range of motion of all extremities, equal. NEUROLOGIC: No focal deficit. Cranial nerves II through XII are grossly intact. No headache, no double vision or headache. SKIN: Not dry. Intact. Turgor - normal. LYMPHATIC: No palpable lymph nodes/no lymphedema. MUSCULOSKELETAL: Normal joints with no swelling. Muscle tone is normal. PLAN: 1. The patient is declining to go home. He is weak will give IV fluids 2. No evidence of CHF, may end up doing an echo. 3. Discussed with the patient his medical problems and he is aware of it as patient is intelligent TIME SPENT: More than 30 minutes. Plan and coordination of the patient's care discussed in the presence of nurse. LACY
--- NOTE | 2017-10-20 10:11 | DS ---
DATE OF SERVICE: 07/26/17 FINAL DIAGNOSIS: 1. Anemia 2. Generalized weakness 3. Cancer with bone metastasis 4. COPD 5. Hypotension 6. Dyslipidemia 7. Diabetes Mellitus type 2 LAST VITAL SIGNS: Temperature 98.2, heart rate 96, respiratory rate 16, blood pressure 130/60 and pulse ox 95%. DISCHARGE INSTRUCTIONS: Discharge to home. He is continue with home health for nursing visits. He is to continue to followup with Dr. Kim as scheduled. He will continue weekly CBC' s per home health that will get faxed to the office. MEDICATIONS AT DISCHARGE: Meclizine 25mg three times a day PRN MS Contin 15mg PO daily PRN Percocet 10-325 Q 6 hours PRN Protonix 40mg daily Miralax as needed K-Dur 20meq PO twice daily Flomax 0.4mg daily ALLERGIES: No known allergies DIET INSTRUCTIONS: Regular ACTIVITY: Resume as tolerated SMOKING: Nonsmoker DISEASE SPECIFIC EDUCATION: Cancer Prognosis Importance of good nutrition Drinking plenty of fluids HOSPITAL COURSE: 77 year old white male who has been hospitalized several times with hypotension , generalized weakness. 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 He is currently undergoing Palliative care and no acute treatment. He generally improves with blood. On this occasion the patient was given two units of packed red cells. His HGB increased two points from 7 to 9.2. He has a history of syncopal episodes along with postural hypotension. He has been instructed to sit on the side of the bed, don't stand abruptly, increase his fluids. Hospice was discussed however the patient is resistant to this. He presented with hypotension and weakness and after given two units of packed red cells he states that his shortness of breath was better, his color had improved and he was feeling strongly. He stated that he wanted to go home as he was more comfortable there. He does have chronic pain due to his metastasis and this is controlled with pain medication by Dr. Kim. He is to followup with us next week and followup with Dr. Kim as scheduled. TIME SPENT: More than 60 minutes. LACY
== END 2017-07-26 17:50 | disposition home or self-care (01) | DRG 812 ==
LOC: ED 09:55 → MEDSURG A 11:38
PROVIDERS: ADMIT Internal Medicine; ATTEND Internal Medicine
PROC: 30233N1 Transfusion of Nonautologous Red Blood Cells into Peripheral Vein, Percutaneous Approach (ICD-10-PCS; principal; 2017-07-24)
DX: D64.9 Anemia, unspecified (principal); C79.51 Secondary malignant neoplasm of bone; C61 Malignant neoplasm of prostate; R53.1 Weakness; J44.9 Chronic obstructive pulmonary disease, unspecified; I95.9 Hypotension, unspecified; E78.5 Hyperlipidemia, unspecified; E11.9 Type 2 diabetes mellitus without complications; I10 Essential (primary) hypertension
CPT/HCPCS: 36415; 36430; 80053; 82803; 83605; 84145; 84484; 85014; 85018; 85025; 86850; 86900; 86922; 87040; 87070; 87081; 93005; 93010; 96361; 97802; 99223; 99232; 99239; 99284

== ENCOUNTER 2017-07-28 08:37 | Inpatient (IN) ==
[2017-07-28 08:46] VITALS: BMI 21.1
[2017-07-28 09:10] LABS: BASOPHILS % (AUTO) 0.2 % (0.0-3.0); EOSINOPHILS % (AUTO) 0.7 % (0.0-7.0); HEMATOCRIT 27.5 % (42.0-52.0); HEMOGLOBIN 9.4 g/dl (14.0-18.0); IMMATURE GRANULOCYTE % (AUTO) 1.3 % (0.0-5.0); LYMPHOCYTES # (AUTO) 0.5 K/uL (0.60-3.4); LYMPHOCYTES % (AUTO) 9.5 (10.0-50.0); MEAN CORPUSCULAR HEMOGLOBIN 29.8 pg (27.0-31.0); MEAN CORPUSCULAR HGB CONC 34.2 (31.8-35.4); MEAN CORPUSCULAR VOLUME 87.3 fl (80.0-94.0); MONOCYTES # (AUTO) 0.3 K/uL (0.4-2.0); MONOCYTES % (AUTO) 4.5 (0-10); NEUTROPHILS # (AUTO) 4.7 K/ul (2.0-6.9); NEUTROPHILS % (AUTO) 83.8; PLATELET COUNT 47 10^3/uL (140-440); RED BLOOD COUNT 3.15 10^6/ul (4.70-6.10); WHITE BLOOD COUNT 5.56 K/ul (4.2-10.2)
[2017-07-28 09:31] LABS: ALBUMIN 1.8 g/dL (3.4-5.0); ALBUMIN/GLOBULIN RATIO 0.6; ANION GAP 12.9; BILIRUBIN,TOTAL 1.75 mg/dL (0.00-1.20); BUN/CREATININE RATIO 14.13; CALCIUM 7.8 mg/dL (8.2-10.2); CREATININE 0.92 mg/dL (0.60-1.10); PARTIAL THROMBOPLASTIN TIME 50.6 SEC (23.9-40.0); POTASSIUM 3.9 mmol/L (3.5-5.1); PROTHROMBIN TIME 12.5 SEC (9.3-11.0); TOTAL PROTEIN 4.8 g/dL (5.8-8.1)
--- NOTE | 2017-07-28 09:51 | CT ---
Exam: CT of the abdomen pelvis without intravenous contrast. Comparison: 07/03/2017. Reason for exam: Pain. FINDINGS: Moderately sized left-sided pleural effusion and a small right-sided pleural effusion. Im age interpretation is limited by the lack of intravenous contrast administration. The effusions have increased in size when compared to the previous exam. The liver is lower in attenuation in the spleen with a heterogeneous appearing echotexture that is in completely evaluated without intravenous contrast. There are several nodular densities seen within t he liver measuring up to 2.6 cm. There is a similar appearing 1.9 centimeter nodule in the left adrenal gland. The gallbladder appear s mildly prominent in size without obvious wall thickening. The spleen and right adrenal gland are gr ossly unremarkable within limitations of a noncontrasted examination. There is fatty infiltration of the pancreas. No obvious pancreatic ductal dilatation. No intra-abdominal free air or pelvic free fluid. No focal small bowel dilatation or transition point. Atherosclerotic disease is seen within the aort a and distal arterial vasculature. There is mild wall thickening in the rectosigmoid colon with surr ounding inflammatory change best seen on axial image number 79. The bladder appears grossly unremark able. No hydronephrosis, hydroureter, or nephrolithiasis in either kidney. Metallic densities are seen within the prostate. Impression: 1. Thickening of the distal rectal wall may be infectious or inflammatory. Cannot rule out underlyi ng neoplastic etiology. 2. Multiple high density foci are seen throughout the liver. These appear similar when compared to the previous exam but are incompletely evaluated without intravenous contrast administration. MRI ma y be performed for further characterization. 3. Similar appearing left adrenal nodule. 4. Enlarging bilateral pleural effusions, left greater than right. Report faxed at [id number] hours on 07/28/2017
--- NOTE | 2017-07-28 10:01 | DI ---
Exam: Single x-ray of the chest. Comparison: 07/24/2017. Reason for exam: Cough. FINDINGS: Operative changes are seen after midline sternotomy and CABG. Left-sided Port-A-Cath pl acement. No pneumothorax. There is similar appearing blunting of the left costophrenic angle. The cardiac silhouette is unchanged and not enlarged. Impression: Stable appearance of the chest with blunting of the left costophrenic angle likely pleural effusion w ith overlying atelectasis.
--- NOTE | 2017-07-28 10:02 | DI ---
Exam: Four x-rays of the left knee. Comparison: None available. Reason for exam: Fall with pain to left knee. FINDINGS: Surgical clips are seen in the soft tissues adjacent to the left knee. No acute fracture or dislocation. There is mild tricompartmental arthrosis with osteophyte formation . Impression: No acute fracture or dislocation in the left knee with mild degenerative disease
[2017-07-28] MEDS ORDERED: MIRALAX PO PRN (10:16)
--- NOTE | 2017-07-28 10:24 | ED.PDOC ---
General ED Provider: Dr. CATRINA MCKENNA Chief Complaint: Weakness Stated Complaint: DIARRHEA Time Seen by Physician: 08:49 Mode of Arrival: Ambulance Information Source: Patient, EMT Exam Limitations: No limitations Primary Care Provider: CALOS VÁSQUEZ Nursing and Triage Documentation Reviewed and Agree: Yes GI Complaint Exam - Abdominal Pain Complaint/Exam Onset: Gradual Duration: TODAY DIARRHEA X 3 Symptoms Are: Still present Timing: Intermittent Initial Severity: Mild Current Severity: Mild Location of Pain: Diffuse Character: Reports: Dull Aggravating: Reports: None Alleviating: Reports: None Associated Signs and Symptoms: Reports: Cough. Denies: Diaphoresis, Fever, Chest pain, Dizziness, Back pain, Constipation, Blood in stool, Dysuria, Urinary frequency, Decreased urine output, Decreased appetite, Discharge, Nausea , Vomiting, Diarrhea, Decreased activity Related History: Reports: Similar episode AAA Risk Factors: Reports: Hypertension Cardiac Risk Factors: Reports: Hypertension Testicular Torsion Risk Factors: Reports: None Surgical Obstruction Risk Factors: Reports: None Related Surgical History: Reports: None Abdominal Findings: Present: None Review of Systems - Review Of Systems Constitutional: Reports: Malaise, Weakness Eyes: Reports: No symptoms Ears, Nose, Mouth, Throat: Reports: No symptoms Respiratory: Reports: No symptoms Cardiac: Reports: No symptoms GI: Reports: Abdominal pain, Diarrhea : Reports: No symptoms Musculoskeletal: Reports: No symptoms Skin: Reports: No symptoms Neurological: Reports: No symptoms Endocrine: Reports: No symptoms Hematologic/Lymphatic: Reports: No symptoms All Other Systems: Reviewed and Negative Past Medical History - Past Medical History Previously Healthy: No Endocrine: Reports: DM 2, Dyslipidemia Cardiovascular: Reports: Hypertension Respiratory: Reports: COPD Hematological: Reports: None Gastrointestinal: Reports: None Genitourinary: Reports: None Neuro/Psych: Reports: None Musculoskeletal: Reports: None Cancer: Reports: Other (PROSTATE) - Surgical History General Surgical History: Reports: None - Family History Family History: Reports: None - Social History Smoking Status: Former smoker Hx Substance Use: No Alcohol Screening: None - Immunizations Tetanus Shot up to Date: Yes Physical Exam - Physical Exam Appearance: Ill-appearing Ill-appearing: Moderate Pain Distress: Moderate Eyes: HOLLY, EOMI, Conjunctiva clear ENT: Ears normal, Nose normal, Oropharynx normal Respiratory: Airway patent, Breath sounds clear, Breath sounds equal, Respirations nonlabored Cardiovascular: RRR, Pulses normal, No rub, No murmur GI/: Soft, Nontender, No masses, Bowel sounds normal, No Organomegaly Musculoskeletal: Normal strength, ROM intact, No edema, No calf tenderness Skin: Warm, Dry, Normal color Neurological: Sensation intact, Motor intact, Reflexes intact, Cranial nerves intact, Alert, Oriented Psychiatric: Affect appropriate, Mood appropriate Interpretation - Radiology Interpretation Radiology Interpretation By: Radiologist Physician Notification - Case Discussed Physician Notified: PMD Time of Notification: 10:25 Admit To: Inpatient Critical Care Note - Critical Care Note Total Time (mins): 0 Course - Course Hematology/Chemistry: 07/28/17 09:00 07/28/17 09:00 Orders, Labs, Meds: Lab Review 07/28/17 07/28/17 07/28/17 09:00 09:00 09:00 WBC 5.56 RBC 3.15 L Hgb 9.4 L Hct 27.5 L MCV 87.3 MCH 29.8 MCHC 34.2 RDW Coeff of Bryn 17.2 H Plt Count 47 L Immature Gran % (Auto) 1.3 Neut % (Auto) 83.8 Lymph % (Auto) 9.5 L [place] % (Auto) 4.5 Eos % (Auto) 0.7 Baso % (Auto) 0.2 Immature Gran # (Auto) 0.1 Neut # 4.7 Lymph # 0.5 L [place] # 0.3 L Eos # 0.0 Baso # 0.0 PT 12.5 H INR 1.24 APTT 50.6 H Sodium 133 L Potassium 3.9 Chloride 103 Carbon Dioxide 21 L Anion Gap 12.9 BUN 13 Creatinine 0.92 Estimated GFR (MDRD) 80.00 BUN/Creatinine Ratio 14.13 Glucose 101 Calcium 7.8 L Total Bilirubin 1.75 H AST 70 H ALT 16 Alkaline Phosphatase 257 H D Total Protein 4.8 L Albumin 1.8 L Globulin 3.0 Albumin/Globulin Ratio 0.60 Orders Category Date Time Status ADMIT PATIENT INPATIENT .TO [facility] (MONITORED BED) ADMISSION 07/28/17 10: 15 Ordered EKG-(ED ONLY) Stat CARDIO 07/28/17 08:57 Completed EKG-(IP & OP ONLY) DAILY CARDIO 07/29/17 06:00 Ordered EKG-(IP & OP ONLY) DAILY CARDIO 07/30/17 06:00 Ordered EKG-(IP & OP ONLY) DAILY CARDIO 07/31/17 06:00 Ordered ACTIVITY .Complete BR CARE 07/28/17 10:15 Ordered C-DIFF MONITORING (NURSING) BID CARE 07/28/17 10:19 Ordered INTAKE & OUTPUT Q8HR CARE 07/28/17 10:15 Ordered TELEMETRY MONITORING TELE CARE 07/28/17 10:15 Ordered VITAL SIGNS Q8HR CARE 07/28/17 10:15 Ordered REGULAR DIET DIETARY 07/28/17 Lunch Ordered ED IV/MEDIPORT/POWERPORT .ONCE EMERGENCY 07/28/17 08:57 Active CBC W/ AUTO DIFF DAILY@0600 LAB 07/29/17 06:00 Ordered CBC W/ AUTO DIFF DAILY@0600 LAB 07/30/17 06:00 Ordered CBC W/ AUTO DIFF Stat LAB 07/28/17 09:00 Completed COMPREHENSIVE METABOLIC PANEL DAILY@0600 LAB 07/29/17 06:00 Ordered COMPREHENSIVE METABOLIC PANEL DAILY@0600 LAB 07/30/17 06:00 Ordered COMPREHENSIVE METABOLIC PANEL Stat LAB 07/28/17 09:00 Completed PARTIAL THROMBOPLASTIN TIME Stat LAB 07/28/17 09:00 Completed PT WITH INR Stat LAB 07/28/17 09:00 Completed c-diff [C. DIFFICILE] Routine LAB 07/28/17 10:18 Uncollected 0.9 % Sodium Chloride [Saline Flush] MEDS 07/28/17 08:57 Active 1 syr IVF PRN PRN Morphine Sulfate [Ms Contin] MEDS 07/28/17 10:16 Ordered 15 mg PO DAILY PRN Oxycodone-Acetaminophen 10-325 [Percocet 10-325] MEDS 07/28/17 10:16 Ordered 1 tab PO Q6H PRN Pantoprazole Sodium [Protonix] MEDS 07/29/17 06:30 Ordered 40 mg PO QDAC Polyethylene Glycol 3350 [Miralax] MEDS 07/28/17 10:16 Ordered 17 gm PO DIRECTED PRN Potassium Chloride [K-Dur] MEDS 07/28/17 21:00 Ordered 20 meq PO BID Sodium Chloride 0.9% [Sodium Chloride] 1,000 ml MEDS 07/28/17 10:30 Ordered IV 75 mls/hr Tamsulosin HCl [Flomax] MEDS 07/29/17 09:00 Ordered 0.4 mg PO DAILY CHEST, 1V AP ONLY Stat RADS 07/28/17 08:[address] ABDOMEN/PELVIS WO CONTRAST Stat RADS 07/28/17 08:57 Completed KNEE, LEFT 4 VIEWS Stat RADS 07/28/17 09:07 Completed Medications Generic Name Dose Route Start Last Admin Trade Name Freq PRN Reason Stop Dose Admin Sodium Chloride 1,000 mls @ 75 mls/hr 07/28/17 10:30 Sodium Chloride IV .[id number] [facility] Morphine Sulfate 15 mg 07/28/17 10:16 Ms Contin PO DAILY PRN Analgesia Oxycodone/Acetaminophen 1 tab 07/28/17 10:16 Percocet 10-325 PO Q6H PRN Analgesia Pantoprazole Sodium 40 mg 07/29/17 06:30 Protonix PO QDAC AMMON Polyethylene Glycol 17 gm 07/28/17 10:16 Miralax PO DIRECTED PRN Constipation Potassium Chloride 20 meq 07/28/17 21:00 K-Dur PO BID AMMON Sodium Chloride 1 syr 07/28/17 08:57 Saline Flush IVF PRN PRN To flush IV Tamsulosin HCl 0.4 mg 07/29/17 09:00 Flomax PO DAILY AMMON Vital Signs: Temp Pulse Resp BP Pulse Ox 07/28/17 08:40 97.2 F L 120 H 22 110/63 98 Departure - Departure Time of Disposition: 10:25 Disposition: ADMITTED INPATIENT Discharge Problem: Diarrhea Qualifiers: Diarrhea type: unspecified type Qualified Code(s): R19.7 - Diarrhea, unspecified Anemia Qualifiers: Anemia type: unspecified type Qualified Code(s): D64.9 - Anemia, unspecified Instructions: Dehydration (ED), Acute Diarrhea (ED) Condition: Good Pt referred to PMD for follow-up: Yes Additional Instructions: Please call your Family Physician as soon as possible to schedule a follow-up appointment. Allergies/Adverse Reactions: Allergies No Known Allergies Allergy (Verified 07/28/17 08:48) Home Medications: Ambulatory Orders Meclizine HCl 25 mg PO TID PRN 10/31/16 Morphine Sulfate [Ms Contin] 15 mg PO DAILY PRN 10/31/16 Polyethylene Glycol 3350 [Miralax] 17 gm PO DIRECTED PRN 10/31/16 Pantoprazole Sodium [Protonix] 40 mg PO QDAC #30 tablet. 04/27/17 Calcium Carbonate/Vitamin D3 [Calcium 600 + Vit D 400 Tablet] 1 each PO DAILY Oxycodone-Acetaminophen 10-325 [Percocet 10-325] 1 tab PO Q6H PRN 06/15/17 Tamsulosin HCl [Flomax] 0.4 mg PO DAILY 06/15/17 Potassium Chloride [K-Dur] 20 meq PO BID #28 tab 07/18/17
[2017-07-28] MEDS: SODIUM CHLORIDE 1,000 ML IV SCH (13:52)
[2017-07-28] MEDS: ZOFRAN 4 MG/2 ML IVP PRN (16:37)
[2017-07-28] MEDS: FLAGYL PO SCH ×2 (16:38→20:59)
[2017-07-28] MEDS: PERCOCET 10-325 PO PRN (16:38)
[2017-07-28] MEDS ORDERED: LOPRESSOR ONE (17:59)
[2017-07-28] MEDS: K-DUR PO SCH (20:59)
[2017-07-28] MEDS ORDERED: LOMOTIL PO PRN ×2 (21:04→22:25)
[2017-07-29] MEDS: SODIUM CHLORIDE 1,000 ML IV SCH ×2 (03:00→16:31)
[2017-07-29 05:09] LABS: BASOPHILS % (AUTO) 0.3 % (0.0-3.0); HEMATOCRIT 24.2 % (42.0-52.0); HEMOGLOBIN 8.1 g/dl (14.0-18.0); IMMATURE GRANULOCYTE % (AUTO) 2.1 % (0.0-5.0); LYMPHOCYTES # (AUTO) 0.6 K/uL (0.60-3.4); LYMPHOCYTES % (AUTO) 14.1 (10.0-50.0); MEAN CORPUSCULAR HEMOGLOBIN 29.8 pg (27.0-31.0); MEAN CORPUSCULAR HGB CONC 33.5 (31.8-35.4); MONOCYTES # (AUTO) 0.3 K/uL (0.4-2.0); MONOCYTES % (AUTO) 7.7 (0-10); NEUTROPHILS # (AUTO) 2.9 K/ul (2.0-6.9); NEUTROPHILS % (AUTO) 74.8; PLATELET COUNT 46 10^3/uL (140-440); RED BLOOD COUNT 2.72 10^6/ul (4.70-6.10); WHITE BLOOD COUNT 3.89 K/ul (4.2-10.2)
[2017-07-29 05:25] LABS: ALBUMIN 1.6 g/dL (3.4-5.0); ALBUMIN/GLOBULIN RATIO 0.62; ANION GAP 11.8; BILIRUBIN,TOTAL 1.21 mg/dL (0.00-1.20); BUN/CREATININE RATIO 16.3; CALCIUM 7.2 mg/dL (8.2-10.2); CREATININE 0.92 mg/dL (0.60-1.10); POTASSIUM 3.8 mmol/L (3.5-5.1); TOTAL PROTEIN 4.2 g/dL (5.8-8.1)
[2017-07-29] MEDS: PERCOCET 10-325 PO PRN ×2 (05:31→15:54)
[2017-07-29] MEDS: PROTONIX PO SCH (05:31)
[2017-07-29] MEDS: FLOMAX PO SCH (08:13)
[2017-07-29] MEDS: K-DUR PO SCH ×2 (08:13→21:30)
[2017-07-29] MEDS: FLAGYL PO SCH ×3 (08:13→21:30)
[2017-07-30] MEDS: PERCOCET 10-325 PO PRN ×4 (00:08→21:18)
[2017-07-30] MEDS: SODIUM CHLORIDE 1,000 ML IV SCH (05:37)
[2017-07-30] MEDS: PROTONIX PO SCH (05:37)
[2017-07-30 06:27] LABS: BASOPHILS % (AUTO) 0.5 % (0.0-3.0); EOSINOPHILS # (AUTO) 0.1 K/ul (0.0-0.7); EOSINOPHILS % (AUTO) 1.6 % (0.0-7.0); HEMATOCRIT 21.5 % (42.0-52.0); HEMOGLOBIN 7.2 g/dl (14.0-18.0); LYMPHOCYTES # (AUTO) 0.6 K/uL (0.60-3.4); LYMPHOCYTES % (AUTO) 15.7 (10.0-50.0); MEAN CORPUSCULAR HGB CONC 33.5 (31.8-35.4); MEAN CORPUSCULAR VOLUME 89.6 fl (80.0-94.0); MONOCYTES # (AUTO) 0.3 K/uL (0.4-2.0); MONOCYTES % (AUTO) 8.1 (0-10); NEUTROPHILS # (AUTO) 2.6 K/ul (2.0-6.9); NEUTROPHILS % (AUTO) 71.1; WHITE BLOOD COUNT 3.69 K/ul (4.2-10.2)
[2017-07-30 06:48] LABS: ALBUMIN 1.5 g/dL (3.4-5.0); ALBUMIN/GLOBULIN RATIO 0.58; BILIRUBIN,TOTAL 1.05 mg/dL (0.00-1.20); BUN/CREATININE RATIO 16.04; CALCIUM 6.9 mg/dL (8.2-10.2); CREATININE 0.81 mg/dL (0.60-1.10); TOTAL PROTEIN 4.1 g/dL (5.8-8.1)
[2017-07-30 07:14] LABS: PLATELET COUNT 39 10^3/uL (140-440)
[2017-07-30] MEDS: K-DUR PO SCH ×2 (08:17→20:58)
[2017-07-30] MEDS: FLAGYL PO SCH ×3 (08:17→20:59)
[2017-07-30] MEDS: FLOMAX PO SCH (08:17)
[2017-07-30] MEDS: MS CONTIN PO PRN (09:50)
[2017-07-30 18:11] LABS: HEMOGLOBIN 9.5 g/dl (14.0-18.0)
[2017-07-31] MEDS: PERCOCET 10-325 PO PRN ×3 (03:08→20:32)
[2017-07-31 05:38] LABS: EOSINOPHILS # (AUTO) 0.1 K/ul (0.0-0.7); EOSINOPHILS % (AUTO) 1.5 % (0.0-7.0); HEMATOCRIT 27.4 % (42.0-52.0); HEMOGLOBIN 9.4 g/dl (14.0-18.0); IMMATURE GRANULOCYTE % (AUTO) 4.4 % (0.0-5.0); LYMPHOCYTES # (AUTO) 0.8 K/uL (0.60-3.4); LYMPHOCYTES % (AUTO) 18.2 (10.0-50.0); MEAN CORPUSCULAR HEMOGLOBIN 30.1 pg (27.0-31.0); MEAN CORPUSCULAR HGB CONC 34.3 (31.8-35.4); MEAN CORPUSCULAR VOLUME 87.8 fl (80.0-94.0); MONOCYTES # (AUTO) 0.4 K/uL (0.4-2.0); MONOCYTES % (AUTO) 8.7 (0-10); NEUTROPHILS # (AUTO) 2.7 K/ul (2.0-6.9); NEUTROPHILS % (AUTO) 66.2; RED BLOOD COUNT 3.12 10^6/ul (4.70-6.10); WHITE BLOOD COUNT 4.13 K/ul (4.2-10.2)
[2017-07-31 05:51] LABS: ALBUMIN 1.6 g/dL (3.4-5.0); ALBUMIN/GLOBULIN RATIO 0.64; ANION GAP 11.1; BILIRUBIN,TOTAL 1.45 mg/dL (0.00-1.20); BUN/CREATININE RATIO 14.1; CALCIUM 7.3 mg/dL (8.2-10.2); CREATININE 0.78 mg/dL (0.60-1.10); POTASSIUM 4.1 mmol/L (3.5-5.1); TOTAL PROTEIN 4.1 g/dL (5.8-8.1)
[2017-07-31] MEDS: PROTONIX PO SCH (05:58)
[2017-07-31 06:08] LABS: PLATELET COUNT 33 10^3/uL (140-440)
[2017-07-31] MEDS: FLAGYL PO SCH ×3 (08:08→20:32)
[2017-07-31] MEDS: K-DUR PO SCH ×3 (08:08→20:35)
[2017-07-31] MEDS: FLOMAX PO SCH (08:08)
--- NOTE | 2017-07-31 11:01 | PCM.PROG ---
Attending Provider: ATTENDING PROVIDER: Dr. CALOS VÁSQUEZ DATE OF SERVICE: 07/31/17 SUBJECTIVE: This 77 year old WHITE/ M was hospitalized 07/28/17. The patient was admitted with acute gastroenteritis. The patient has C. diff. Katty has worked and has now one semi-formed stool yesterday. The patient is afebrile was given 2 units of PRBC. Hemoglobin 9.4, hematocrit 27. The patient's condition is stabilized now. REVIEW OF SYSTEMS: CONSTITUTIONAL: Weakness. No night sweats. No fever or chills. HEENT: Eyes: No visual changes. No eye pain. No eye discharge. ENT: No runny nose. No epistaxis. No sinus pain. No odynophagia. No congestion. RESPIRATORY: No cough, no congestion. No hemoptysis. No shortness of breath. CARDIOVASCULAR: No angina symptoms. No CHF symptoms. No atypical chest pain for CAD. No palpitations. No orthopnea.. GASTROINTESTINAL: No abdominal pain. No nausea or vomiting. No diarrhea or constipation. No hematemesis. No hematochezia. GENITOURINARY: No urgency. No frequency. No dysuria. No hematuria. No obstructive symptoms. No discharge. No pain. No significant abnormal bleeding. MUSCULOSKELETAL: No musculoskeletal pain; no joint swelling. NEUROLOGICAL: Awake, alert, oriented to time, place and person. No headache. No neck pain. No syncope. No seizures. No dizziness. PSYCHIATRIC: Not anxious. No depression. No suicidal thoughts. No homicidal thoughts. SKIN: No rash. No lesions. No wounds. ENDOCRINE: No unexplained weight loss. No weight gain. HEMATOLOGIC/LYMPHATIC: No anemia. No purpura. No petechiae. No prolonged or excessive bleeding. No palpable lymph nodes. PHYSICAL EXAMINATION: GENERAL: The patient is awake, alert and oriented, lying in bed in no distress. The patient looks pale. VITAL SIGNS: Temperature 98.0 F, Pulse 104, Respiratory Rate 18, BP 128/72, Pulse Ox 98% HEENT: Head normocephalic, atraumatic. Eyes: Extraocular muscles are intact. Pupils are equal, round and reactive to light and accommodation. Ears: No lesions. Nose appeared normal. Throat: No exudate or erythema. NECK: Supple. No JVD, no carotid bruit. No lymphadenopathy or thyromegaly. LUNGS: Clear to auscultation. Percussion note normal. Chest symmetrical. HEART: S1, S2, no S3. No murmurs. No cyanosis or clubbing. No ascites. Pulses: Dorsalis pedis and posterior tibial pulses +1 to +2 both sides. ABDOMEN: Soft. Non-tender. Bowel sounds active. No CVA tenderness. No mass felt. EXTREMITIES: No edema. Full range of motion of all extremities, equal. NEUROLOGIC: No focal deficit. Cranial nerves II through XII are grossly intact. No headache, no double vision or headache. SKIN: Not dry. Intact. Turgor-normal. LYMPHATIC: No palpable lymph nodes/no lymphedema. MUSCULOSKELETAL: Normal joints with no swelling. Muscle tone is normal. LAB REVIEW: 07/31/17 04:06 07/31/17 04:06 07/31/17 04:06: Sodium 133 L, Potassium 4.1, Chloride 106, Carbon Dioxide 20 L, Anion Gap 11.1, BUN 11, Creatinine 0.78, Estimated GFR (MDRD) 96.00, BUN/ Creatinine Ratio 14.10, Glucose 80 L, Calcium 7.3 L, Total Bilirubin 1.45 H, AST 45 H, ALT 14, Alkaline Phosphatase 196 H, Total Protein 4.1 L, Albumin 1.6 L , Globulin 2.5, Albumin/Globulin Ratio 0.64 07/31/17 04:06: WBC 4.13 L, RBC 3.12 L, Hgb 9.4 L, Hct 27.4 L, MCV 87.8, MCH 30.1, MCHC 34.3, RDW Coeff of Bryn 16.8 H, Plt Count 33 L, Immature Gran % (Auto ) 4.4, Neut % (Auto) 66.2, Lymph % (Auto) 18.2, [place] % (Auto) 8.7, Eos % (Auto) 1.5, Baso % (Auto) 1.0, Immature Gran # (Auto) 0.2, Neut # 2.7, Lymph # 0.8, [place] # 0.4, Eos # 0.1, Baso # 0.0 07/30/17 18:00: Hgb 9.5 L, Hct 28.0 L D 07/30/17 08:00: Blood Type O POSITIVE, Antibody Screen Negative, Crossmatch (AHG ) See Detail ASSESSMENT: 1. Acute gastroenteritis 2. C. diff 3. CABG 4. Anemia requiring blood transfusion 5. Prostate cancer with bone metastasis PLAN: 1. Discharge home tomorrow 2. Will do CBC The patient's echo showed hypokinetic septum with LV fraction 45%. Valves normal. The as usual has dementia and asking same questions. Plan and coordination of the patient's care discussed in the presence of Neuroscience Specialist and nurse. CONDITION: Stable SCRIBED BY: STEVO RESENDIZ Scrap Crusher scribed while in presence of service performed by Dr. CALOS VÁSQUEZ on 07/31/17 ([id number])
--- NOTE | 2017-07-31 13:36 | PN ---
DATE OF SERVICE: 07/30/17 SUBJECTIVE: 77 year old white male hospitalized with acute gastroenteritis which seems to have resolved. The patient has C-Diff, he is on Flagyl. The patient was given IV fluids. His hgb and hct has dropped now with hemodilution to 7.221. The patient is symptomatic with weakness. Extreme fatigue. He has symptomatic anemia. He will be given 2 units of packed red cells. REVIEW OF SYSTEMS: CONSTITUTIONAL: No night sweats. No fatigue, malaise, lethargy. No fever or chills. HEENT: Eyes: No visual changes. No eye pain. No eye discharge. ENT: No runny nose. No epistaxis. No sinus pain. No sore throat. No odynophagia. No congestion. RESPIRATORY: No cough, no congestion. No hemoptysis. No shortness of breath. CARDIOVASCULAR: No angina symptoms. No CHF symptoms. No atypical chest pain for CAD. No palpitations. No orthopnea. GASTROINTESTINAL: No abdominal pain. No nausea or vomiting. Diarrhea practically has subsided. No hematemesis. No hematochezia. Appetite has improved. GENITOURINARY: No urgency. No frequency. No dysuria. No hematuria. No obstructive symptoms. No discharge. No pain. No significant abnormal bleeding. MUSCULOSKELETAL: No musculoskeletal pain; no joint swelling. NEUROLOGICAL: No headache. No neck pain. No syncope. No seizures. No dizziness. PSYCHIATRIC: Not anxious. No depression. No suicidal thoughts. No homicidal thoughts. SKIN: No rash. No lesions. No wounds. ENDOCRINE: No unexplained weight loss. No weight gain. HEMATOLOGIC/LYMPHATIC: No anemia. No purpura. No petechiae. No prolonged or excessive bleeding. No palpable lymph nodes. PHYSICAL EXAMINATION: HEENT: Head normocephalic, atraumatic. Eyes: Extraocular muscles are intact. Pupils are equal, round and reactive to light and accommodation. Ears: No lesions. Nose appeared normal. Throat: No exudate or erythema. NECK: Supple. No JVD, no carotid bruit. No lymphadenopathy or thyromegaly. LUNGS: Decreased breath sounds but clear to auscultation. Percussion note normal. Chest symmetrical. HEART: S1, S2, no S3. No murmurs. No cyanosis or clubbing. No ascites. Pulses: Dorsalis pedis and posterior tibial pulses +1 to +2 both sides. ABDOMEN: Soft. Nontender. Bowel sounds active. No CVA tenderness. No mass felt. EXTREMITIES: No edema. Full range of motion of all extremities, equal. NEUROLOGIC: No focal deficit. Cranial nerves II through XII are grossly intact. No headache, no double vision or headache. SKIN: Not dry. Intact. Turgor - normal. LYMPHATIC: No palpable lymph nodes/no lymphedema. MUSCULOSKELETAL: Normal joints with no swelling. Muscle tone is normal. LABS: Hgb 7.2, hct 21, WBC 3,600 normal differential, creatinine 0.8, BUN 13, potassium 4. ASSESSMENT: 1. Acute gastroenteritis, resolved 2. C-Diff Colitis 3. Anemia, chronic requiring frequent blood transfusion 4. Prostatic cancer, metastatic 5. Coronary bypass surgery PLAN: 1. Give two units of packed red cells 2. Discontinue IV fluids 3. Continue Flagyl CONDITION: Stable TIME SPENT: More than 30 minutes. Plan and coordination of the patient's care discussed in the presence of nurse. LACY
[2017-08-01] MEDS: MS CONTIN PO PRN ×2 (00:50→15:40)
[2017-08-01 04:53] LABS: HEMATOCRIT 27.7 % (42.0-52.0); HEMOGLOBIN 9.6 g/dl (14.0-18.0); MEAN CORPUSCULAR HEMOGLOBIN 30.4 pg (27.0-31.0); MEAN CORPUSCULAR HGB CONC 34.7 (31.8-35.4); MEAN CORPUSCULAR VOLUME 87.7 fl (80.0-94.0); PLATELET COUNT 38 10^3/uL (140-440); RED BLOOD COUNT 3.16 10^6/ul (4.70-6.10); WHITE BLOOD COUNT 4.15 K/ul (4.2-10.2)
[2017-08-01 05:02] LABS: ANISOCYTOSIS NOT PRESENT (NOT PRESENT)
[2017-08-01 05:27] LABS: ALBUMIN 1.7 g/dL (3.4-5.0); ALBUMIN/GLOBULIN RATIO 0.65; ANION GAP 15.7; BILIRUBIN,TOTAL 1.31 mg/dL (0.00-1.20); BUN/CREATININE RATIO 14.63; CALCIUM 7.6 mg/dL (8.2-10.2); CREATININE 0.82 mg/dL (0.60-1.10); POTASSIUM 4.7 mmol/L (3.5-5.1); TOTAL PROTEIN 4.3 g/dL (5.8-8.1)
[2017-08-01] MEDS: PROTONIX PO SCH (05:51)
--- NOTE | 2017-08-01 07:43 | ECHO2D ---
Date of Exam: 07/31/17 Ordering Physician: CALOS VÁSQUEZ Room #: 101 Reason for Echo: CONGESTIVE HEART FAILURE, CABG 1997, SOB M-Mode Normal Adult Results LV Dimensions Normal Adult Results AoV Opening excursions >1.6 >1.6 LVEDD-base- 3.5-5.8 5.5 Ao root dimensions 2.0-3.7 3.5 LVESD-base- 3.1-4.6 L. Atrium dimensions 1.9-3.8 4.0 Post. Wall thickness 0.8-1.1 1.5 IV septum (thickness) 0.7-1.2 1.4 Post. Wall excursion 0.72-1.3 NORMAL Septal motion 0.2 Systolic motion R. Ventricular cavity 1.5-2.0 NORMAL LVEF 60% 50% Paradoxical septal wall motion NORMAL 2-D : HYPOKINETIC SEPTUM, NORMAL VALVES, NO EFFUSION, NO THROMBUS, NORMAL LEFT VENTRICLE AND LEFT ATRIAL SIZE M-MODE: MV: NORMAL AV: NORMAL TV: NORMAL PV: CHAMBER SIZE: NORMAL WALL MOTION: HYPOKINETIC SEPTUM PERICARDIUM: NORMAL INTERPRETATION: 1. HYPOKINETIC SEPTUM, LEFT VENTRICULAR EJECTION FRACTION 50% 2. LEFT VENTRICULAR HYPERTROPHY 3. NORMAL VALVES 4. NO EFFUSION MTDD
[2017-08-01] MEDS ORDERED: DECADRON 4 MG/ML SDV IM STA (08:39)
[2017-08-01] MEDS ORDERED: MEGACE PO STA (08:40)
[2017-08-01] MEDS: PERCOCET 10-325 PO PRN (08:57)
[2017-08-01] MEDS: ZOFRAN 4 MG/2 ML IVP PRN (09:03)
[2017-08-01] MEDS: FLAGYL PO SCH ×3 (09:38→21:08)
[2017-08-01] MEDS: K-DUR PO SCH ×3 (09:38→21:08)
[2017-08-01] MEDS: FLOMAX PO SCH (09:38)
--- NOTE | 2017-08-01 10:24 | PCM.PROG ---
Attending Provider: ATTENDING PROVIDER: Dr. CALOS VÁSQUEZ This patient is seen with Jeanna Main, Nurse Practitioner. DATE OF SERVICE: 08/01/17 SUBJECTIVE: This 77 year old WHITE/ M was hospitalized 07/28/17. The patient is alert, lying in bed. Formed stool last night. Hemoglobin steady at 9.6. REVIEW OF SYSTEMS: CONSTITUTIONAL: Fatigue and weakness. No night sweats. No fever or chills. HEENT: Eyes: No visual changes. No eye pain. No eye discharge. ENT: No runny nose. No epistaxis. No sinus pain. No odynophagia. No congestion. RESPIRATORY: No cough, no congestion. No hemoptysis. No shortness of breath. CARDIOVASCULAR: No angina symptoms. No CHF symptoms. No atypical chest pain for CAD. No palpitations. No orthopnea.. GASTROINTESTINAL: No abdominal pain. No nausea or vomiting. No diarrhea or constipation. No hematemesis. No hematochezia. GENITOURINARY: No urgency. No frequency. No dysuria. No hematuria. No obstructive symptoms. No discharge. No pain. No significant abnormal bleeding. MUSCULOSKELETAL: Bone pain. NEUROLOGICAL: Awake, alert, oriented to time, place and person. No headache. No neck pain. No syncope. No seizures. No dizziness. PSYCHIATRIC: Not anxious. No depression. No suicidal thoughts. No homicidal thoughts. SKIN: No rash. No lesions. No wounds. ENDOCRINE: No unexplained weight loss. No weight gain. HEMATOLOGIC/LYMPHATIC: No anemia. No purpura. No petechiae. No prolonged or excessive bleeding. No palpable lymph nodes. PHYSICAL EXAMINATION: GENERAL: The patient is awake, alert and oriented, lying in bed in no distress. VITAL SIGNS: Temperature 97.8 F, Pulse 112, Respiratory Rate 18, BP 118/58, Pulse Ox 97% HEENT: Head normocephalic, atraumatic. Eyes: Extraocular muscles are intact. Pupils are equal, round and reactive to light and accommodation. Ears: No lesions. Nose appeared normal. Throat: No exudate or erythema. NECK: Supple. No JVD, no carotid bruit. No lymphadenopathy or thyromegaly. LUNGS: Diminished breath sounds bilaterally. Clear to auscultation. Percussion note normal. Chest symmetrical. HEART: S1, S2, no S3. No murmurs. No cyanosis or clubbing. No ascites. Pulses: Dorsalis pedis and posterior tibial pulses +1 to +2 both sides. ABDOMEN: Soft. Non-tender. Bowel sounds active. No CVA tenderness. No mass felt. EXTREMITIES: No edema. Full range of motion of all extremities, equal. NEUROLOGIC: No focal deficit. Cranial nerves II through XII are grossly intact. No headache, no double vision or headache. SKIN: Not dry. Intact. Turgor-normal. LYMPHATIC: No palpable lymph nodes/no lymphedema. MUSCULOSKELETAL: Normal joints with no swelling. Muscle tone is normal. LAB REVIEW: 08/01/17 04:45 08/01/17 04:45 08/01/17 04:45: Sodium 133 L, Potassium 4.7, Chloride 106, Carbon Dioxide 16 L, Anion Gap 15.7, BUN 12, Creatinine 0.82, Estimated GFR (MDRD) 91.00, BUN/ Creatinine Ratio 14.63, Glucose 88, Calcium 7.6 L, Total Bilirubin 1.31 H, AST 40 H, ALT 13, Alkaline Phosphatase 214 H, Total Protein 4.3 L, Albumin 1.7 L, Globulin 2.6, Albumin/Globulin Ratio 0.65 08/01/17 04:45: WBC 4.15 L, RBC 3.16 L, Hgb 9.6 L, Hct 27.7 L, MCV 87.7, MCH 30.4, MCHC 34.7, RDW Coeff of Bryn 16.9 H, Plt Count 38 L, Neutrophils % (Manual ) 80.0 H, Lymphocytes % (Manual) 15.0, Monocytes % (Manual) 3.0, Metamyelocytes % 1.0, Reactive Lymphocytes 1.0, Anisocytosis Not present ASSESSMENT: 1. Acute gastroenteritis, resolved 2. C. diff, improving 3. CABG 4. Anemia requiring blood transfusion - improved 5. Prostate cancer with bone metastasis PLAN: 1. Megace 400 mg daily 2. Flagyl t.i.d. times 10 more days 3. 1 cc Decadron 4. D/C home today 5. Fup in office next week Plan and coordination of the patient's care discussed in the presence of Cotton Picker and nurse. CONDITION: Stable SCRIBED BY: Cruz LA scribed while in presence of service performed by Dr. Vásquez/Jeanna Main APRN on 08/01/17 ([id number])
--- NOTE | 2017-08-01 14:43 | PN ---
DATE OF SERVICE: 08/01/17 SUBJECTIVE: 77 year old white male hospitalized with acute gastroenteritis. The patient had C-Diff colitis. The patient responded to Flagyl very well. The patient has almost normal bowel movement and normal appetite. He is still weak, he was given two units of packed red cells because he had symptomatic anemia with weakness and shortness of breath. The patient's hgb on discharge was 9.4, hct 27 and WBC 4,100 normal differential, creatinine 0.7, BUN 11. The patient was seen and examined with Nurse Practitioner. The patient is stable enough to be discharged. PROGNOSIS: Poor TIME SPENT: More than 30 minutes. Plan and coordination of the patient's care discussed in the presence of nurse. LACY
[2017-08-02] MEDS: PERCOCET 10-325 PO PRN ×2 (01:38→13:30)
[2017-08-02] MEDS: PROTONIX PO SCH (06:15)
[2017-08-02 06:28] VITALS: BP 142/68; TEMP 97.2
[2017-08-02 07:10] LABS: BASOPHILS % (AUTO) 0.2 % (0.0-3.0); EOSINOPHILS % (AUTO) 0.2 % (0.0-7.0); HEMATOCRIT 27.1 % (42.0-52.0); HEMOGLOBIN 9.2 g/dl (14.0-18.0); IMMATURE GRANULOCYTE % (AUTO) 5.2 % (0.0-5.0); LYMPHOCYTES # (AUTO) 0.5 K/uL (0.60-3.4); LYMPHOCYTES % (AUTO) 8.6 (10.0-50.0); MEAN CORPUSCULAR HEMOGLOBIN 30.6 pg (27.0-31.0); MEAN CORPUSCULAR HGB CONC 33.9 (31.8-35.4); MONOCYTES # (AUTO) 0.4 K/uL (0.4-2.0); MONOCYTES % (AUTO) 7.4 (0-10); NEUTROPHILS # (AUTO) 4.7 K/ul (2.0-6.9); NEUTROPHILS % (AUTO) 78.4; PLATELET COUNT 38 10^3/uL (140-440); RED BLOOD COUNT 3.01 10^6/ul (4.70-6.10); WHITE BLOOD COUNT 5.94 K/ul (4.2-10.2)
[2017-08-02 07:30] LABS: ALBUMIN 1.7 g/dL (3.4-5.0); ALBUMIN/GLOBULIN RATIO 0.65; ANION GAP 15.7; BILIRUBIN,TOTAL 1.11 mg/dL (0.00-1.20); BUN/CREATININE RATIO 16.81; CALCIUM 7.8 mg/dL (8.2-10.2); CREATININE 1.13 mg/dL (0.60-1.10); POTASSIUM 4.7 mmol/L (3.5-5.1); TOTAL PROTEIN 4.3 g/dL (5.8-8.1)
[2017-08-02] MEDS: FLOMAX PO SCH (08:25)
[2017-08-02] MEDS: FLAGYL PO SCH (08:25)
[2017-08-02] MEDS: K-DUR PO SCH (08:25)
--- NOTE | 2017-08-02 08:37 | PN ---
DATE OF SERVICE: 07/29/17 SUBJECTIVE: 77 year old white male hospitalized with acute gastroenteritis. The patient's diarrhea is under control. He is feeling somewhat better. His hydration status has improved. The patient is on Flagyl 500mg three times a day. C-Diff positive. The is in the room and she is confused as usual. REVIEW OF SYSTEMS: CONSTITUTIONAL: No night sweats. No fatigue, malaise, lethargy. No fever or chills. HEENT: Eyes: No visual changes. No eye pain. No eye discharge. ENT: No runny nose. No epistaxis. No sinus pain. No sore throat. No odynophagia. No congestion. RESPIRATORY: No cough, no congestion. No hemoptysis. No shortness of breath. CARDIOVASCULAR: No angina symptoms. No CHF symptoms. No atypical chest pain for CAD. No palpitations. No orthopnea. GASTROINTESTINAL: No abdominal pain. No nausea or vomiting. Mild diarrhea. No hematemesis. No hematochezia. GENITOURINARY: No urgency. No frequency. No dysuria. No hematuria. No obstructive symptoms. No discharge. No pain. No significant abnormal bleeding. Appetite has improved some. MUSCULOSKELETAL: No musculoskeletal pain; no joint swelling. NEUROLOGICAL: No headache. No neck pain. No syncope. No seizures. No dizziness. PSYCHIATRIC: Not anxious. No depression. No suicidal thoughts. No homicidal thoughts. SKIN: No rash. No lesions. No wounds. ENDOCRINE: No unexplained weight loss. No weight gain. HEMATOLOGIC/LYMPHATIC: No anemia. No purpura. No petechiae. No prolonged or excessive bleeding. No palpable lymph nodes. PHYSICAL EXAMINATION: GENERAL: The patient is oriented to time, place and person. VITAL SIGNS: Temperature 98, pulse 100, respiratory rate 20, blood pressure 122 /70 and pulse ox 97%. HEENT: Head normocephalic, atraumatic. Eyes: Extraocular muscles are intact. Pupils are equal, round and reactive to light and accommodation. Ears: No lesions. Nose appeared normal. Throat: No exudate or erythema. Looks pale. NECK: Supple. No JVD, no carotid bruit. No lymphadenopathy or thyromegaly. LUNGS: Decreased breath sounds but clear to auscultation. Percussion note normal. Chest symmetrical. HEART: S1, S2, no S3. No murmurs. No cyanosis or clubbing. No ascites. Pulses: Dorsalis pedis and posterior tibial pulses +1 to +2 both sides. ABDOMEN: Soft. Nontender. Bowel sounds active. No CVA tenderness. No mass felt. EXTREMITIES: No edema. Full range of motion of all extremities, equal. NEUROLOGIC: No focal deficit. Cranial nerves II through XII are grossly intact. No headache, no double vision or headache. SKIN: Not dry. Intact. Turgor - normal. LYMPHATIC: No palpable lymph nodes/no lymphedema. MUSCULOSKELETAL: Normal joints with no swelling. Muscle tone is normal. LABS: Hgb 8.1, hct 24, WBC 3,800 normal differential, creatinine 0.9, BUN 15, potassium 3.8. ASSESSMENT: 1. Acute gastroenteritis seems to be getting under control 2. Dehydration 3. Metastatic prostatic cancer 4. Coronary bypass surgery PLAN: 1. Will type and cross match two units and it goes below 7 we will give him blood transfusion 2. May do echocardiogram to evaluation LV function which we were supposed to do last time. 3. C-Diff still pending. CONDITION: Stable TIME SPENT: More than 30 minutes. Plan and coordination of the patient's care discussed in the presence of nurse. LACY
--- NOTE | 2017-08-02 10:04 | PCM.PROG ---
Attending Provider: ATTENDING PROVIDER: Dr. CALOS VÁSQUEZ DATE OF SERVICE: 08/02/17 SUBJECTIVE: This 77 year old WHITE/ M was hospitalized 07/28/17. The patient is stable not fainting anymore. Hemoglobin is 9.2, hematocrit 27.1. Kidney functions are stable. Appetite is acceptable. Patient is stable enough to be discharged with poor prognosis. REVIEW OF SYSTEMS: CONSTITUTIONAL: Weakness and fatigue which is chronic. No night sweats. No fever or chills. HEENT: Eyes: No visual changes. No eye pain. No eye discharge. ENT: No runny nose. No epistaxis. No sinus pain. No odynophagia. No congestion. RESPIRATORY: No cough, no congestion. No hemoptysis. No shortness of breath. CARDIOVASCULAR: No angina symptoms. No CHF symptoms. No atypical chest pain for CAD. No palpitations. No orthopnea.. GASTROINTESTINAL: Appetite within acceptable limits. No abdominal pain. No nausea or vomiting. No diarrhea or constipation. No hematemesis. No hematochezia. GENITOURINARY: No urgency. No frequency. No dysuria. No hematuria. No obstructive symptoms. No discharge. No pain. No significant abnormal bleeding. MUSCULOSKELETAL: No musculoskeletal pain; no joint swelling. NEUROLOGICAL: Awake, alert, oriented to time, place and person. No headache. No neck pain. No syncope. No seizures. No dizziness. PSYCHIATRIC: Not anxious. No depression. No suicidal thoughts. No homicidal thoughts. SKIN: No rash. No lesions. No wounds. ENDOCRINE: No unexplained weight loss. No weight gain. HEMATOLOGIC/LYMPHATIC: No anemia. No purpura. No petechiae. No prolonged or excessive bleeding. No palpable lymph nodes. PHYSICAL EXAMINATION: GENERAL: The patient is awake, alert and oriented, lying in bed in no distress. The patient looks pale as usual. VITAL SIGNS: Temperature 97.2 F, Pulse 100, Respiratory Rate 14, BP 142/68, Pulse Ox 96% HEENT: Head normocephalic, atraumatic. Eyes: Extraocular muscles are intact. Pupils are equal, round and reactive to light and accommodation. Ears: No lesions. Nose appeared normal. Throat: No exudate or erythema. NECK: Supple. No JVD, no carotid bruit. No lymphadenopathy or thyromegaly. LUNGS: Decreased breath sounds. Clear to auscultation. Percussion note normal. Chest symmetrical. HEART: S1, S2, no S3. No murmurs. No cyanosis or clubbing. No ascites. Pulses: Dorsalis pedis and posterior tibial pulses +1 to +2 both sides. ABDOMEN: Soft. Non-tender. Bowel sounds active. No CVA tenderness. No mass felt. EXTREMITIES: No edema. Full range of motion of all extremities, equal. NEUROLOGIC: No focal deficit. Cranial nerves II through XII are grossly intact. No headache, no double vision or headache. SKIN: Not dry. Intact. Turgor-normal. LYMPHATIC: No palpable lymph nodes/no lymphedema. MUSCULOSKELETAL: Normal joints with no swelling. Muscle tone is normal. LAB REVIEW: 08/02/17 07:07 08/02/17 07:07 08/02/17 07:07: Sodium 133 L, Potassium 4.7, Chloride 105, Carbon Dioxide 17 L, Anion Gap 15.7, BUN 19 H, Creatinine 1.13 H, Estimated GFR (MDRD) 63.00, BUN/ Creatinine Ratio 16.81, Glucose 118 H, Calcium 7.8 L, Total Bilirubin 1.11, AST 46 H, ALT 14, Alkaline Phosphatase 210 H, Total Protein 4.3 L, Albumin 1.7 L, Globulin 2.6, Albumin/Globulin Ratio 0.65 08/02/17 07:07: WBC 5.94, RBC 3.01 L, Hgb 9.2 L, Hct 27.1 L, MCV 90.0, MCH 30.6 , MCHC 33.9, RDW Coeff of Bryn 18.0 H, Plt Count 38 L, Immature Gran % (Auto) 5.2 H, Neut % (Auto) 78.4, Lymph % (Auto) 8.6 L, Centre % (Auto) 7.4, Eos % (Auto ) 0.2, Baso % (Auto) 0.2, Immature Gran # (Auto) 0.3, Neut # 4.7, Lymph # 0.5 L , Centre # 0.4, Eos # 0.0, Baso # 0.0 ASSESSMENT: 1. Acute gastroenteritis, resolved 2. C. diff, improving 3. CABG 4. Anemia requiring blood transfusion - improved 5. Prostate cancer with bone metastasis PLAN: 1. Discharge home. 2. The patient is to be seen in followup with Dr. Vásquez/Etelvina Meeks APRN in five days. rupert 3. Continue Flagyl. 4. Encouraged to eat well and drink lots of fluids. 5. Daily CBC and CMP. 6. The patient will benefit from [facility] for nursing assessment, PT /OT. Plan and coordination of the patient's care discussed in the presence of Bombsight Specialist and nurse. CONDITION: Stable PROGNOSIS: Poor SCRIBED BY: STEVO RESENDIZ Shingles Roofer Helper scribed while in presence of service performed by Dr. CALOS VÁSQUEZ on 08/02/17 ([id number])
--- NOTE | 2017-08-02 11:24 | CM.DICTOOL ---
ADMISSION: 07/28/17 10:21 DISCHARGE: August 02, 2017 DATE OF SERVICE: 08/02/17 FINAL DIAGNOSIS Acute Gastroenteritis C-Diff Anemia, transfusion of 2 units packed cells Prostate Cancer with Bone Metastasis Hypertension COPD Former Smoker Dementia History of CAD LAST VITALS Temp Pulse Resp BP Pulse Ox 97.2 F L 100 H 14 142/68 H 96 08/02/17 06:00 08/02/17 06:00 08/02/17 06:00 08/02/17 06:00 08/01/17 22:00 ACTIVE HOME MEDICATIONS Meclizine HCL 25 mg PO TID prn Dizziness Last Admin: Calcium Carbonate/Vitamin D3 1 tablet Daily Last Admin: Morphine Sulfate (Ms Contin) 15 mg PO DAILY PRN PRN Reason: Analgesia Last Admin: 08/01/17 15:40 Dose: 15 mg Oxycodone/Acetaminophen (Percocet 10-325) 1 tab PO Q6H PRN PRN Reason: Analgesia Last Admin: 08/02/17 01:38 Dose: 1 tab Pantoprazole Sodium (Protonix) 40 mg PO QDAC AMMON Last Admin: 08/02/17 06:15 Dose: 40 mg Polyethylene Glycol (Miralax) 17 gm PO DAILY PRN PRN Reason: CONSTIPATION Potassium Chloride (K-Dur) 20 meq PO BID [facility] Last Admin: 08/02/17 08:25 Dose: 20 meq Tamsulosin HCl (Flomax) 0.4 mg PO DAILY [facility] Last Admin: 08/02/17 08:25 Dose: 0.4 mg ALLERGIES No Known Allergies Allergy (Verified 07/28/17 08:48) NEW PRESCRIPTIONS: Flagyl 500 mg TID for 10 days SMOKING: Not Applicable DISEASE SPECIFIC EDUCATION: Diagnosis, Cancer Importance of good nutrition, hydration C-diff with contact precautions Good Hand Washing after elimination LAB REVIEW: 08/02/17 07:07 08/02/17 07:07 08/02/17 07:07: Sodium 133 L, Potassium 4.7, Chloride 105, Carbon Dioxide 17 L, Anion Gap 15.7, BUN 19 H, Creatinine 1.13 H, Estimated GFR (MDRD) 63.00, BUN/ Creatinine Ratio 16.81, Glucose 118 H, Calcium 7.8 L, Total Bilirubin 1.11, AST 46 H, ALT 14, Alkaline Phosphatase 210 H, Total Protein 4.3 L, Albumin 1.7 L, Globulin 2.6, Albumin/Globulin Ratio 0.65 08/02/17 07:07: WBC 5.94, RBC 3.01 L, Hgb 9.2 L, Hct 27.1 L, MCV 90.0, MCH 30.6 , MCHC 33.9, RDW Coeff of Bryn 18.0 H, Plt Count 38 L, Immature Gran % (Auto) 5.2 H, Neut % (Auto) 78.4, Lymph % (Auto) 8.6 L, [place] % (Auto) 7.4, Eos % (Auto ) 0.2, Baso % (Auto) 0.2, Immature Gran # (Auto) 0.3, Neut # 4.7, Lymph # 0.5 L , [place] # 0.4, Eos # 0.0, Baso # 0.0 PLAN: Discharge home Diet: Regular as tolerated. Small meals several times daily are encouraged, 5-6 Activity: Gradually resume as tolerated. Sit up during the day as tolerated Continue [facility] for nursing visits, medication compliance, skin assessment, nutritional status, weekly CBC on Monday and fax to Dr. Mars office at [phone] Kim for any other [facility] orders. An appointment is scheduled with Dr. Mars/Jeanna Main APRN on August 08, 2017 at 1:30 Mr. Cisneros is alert and oriented x 3. He transfers to the chair and to the bedside commode with assistance of one staff member. He reports nausea, but has had no emesis in over 72 hours. He has had no further diarrhea stools. The last stool was noted on the . He reports decreased appetite, with meal intakes of 25% noted. However, his liquid intake is good at 820 ml for yesterday. His color is pale. Bruising is noted to the upper back and to both forearms. A scabbed area is noted to the left forearm. Kong Mars MD
--- NOTE | 2017-08-02 14:44 | PN ---
DATE OF SERVICE: 07/31/17 SUBJECTIVE: 77 year old white male hospitalized with acute gastroenteritis. His condition has improved. No diarrhea now. The patient is still weak. He looks pale but the hgb is 9.4, hct 27. He was given 2 units of packed red cells. PHYSICAL EXAMINATION: HEENT: Head normocephalic, atraumatic. Eyes: Extraocular muscles are intact. Pupils are equal, round and reactive to light and accommodation. Ears: No lesions. Nose appeared normal. Throat: No exudate or erythema. NECK: Supple. No JVD, no carotid bruit. No lymphadenopathy or thyromegaly. LUNGS: Decreased breath sounds. Clear to auscultation. Percussion note normal. Chest symmetrical. HEART: S1, S2, no S3. No murmurs. No cyanosis or clubbing. No ascites. Pulses: Dorsalis pedis and posterior tibial pulses +1 to +2 both sides. ABDOMEN: Soft. Nontender. Bowel sounds active. No CVA tenderness. No mass felt. EXTREMITIES: No edema. Full range of motion of all extremities, equal. No evidence of fluid overload. NEUROLOGIC: No focal deficit. Cranial nerves II through XII are grossly intact. No headache, no double vision or headache. SKIN: Not dry. Intact. Turgor - normal. LYMPHATIC: No palpable lymph nodes/no lymphedema. MUSCULOSKELETAL: Normal joints with no swelling. Muscle tone is normal. LABS: Echo done showed hypokinetic septum with LV ejection fraction 44%. PROGNOSIS: Poor PLAN: 1. Discussed with the family especially who is demented. The patient understands his prognosis because of dementia his has he is very concerned about it. TIME SPENT: More than 30 minutes. Plan and coordination of the patient's care discussed in the presence of nurse. LACY
--- NOTE | 2017-08-02 15:14 | HP ---
DATE OF SERVICE: 07/28/17 REASON FOR HOSPITALIZATION: Nausea, vomiting, diarrhea and weakness HISTORY OF PRESENT ILLNESS: 77 year old white male was brought to the emergency room because of onset of having diarrhea. The patient had three to four diarrhea stool liquid at home, also had nausea but he started vomiting also in the emergency room. The patient has history of severe anemia, chronic along with metastasis prostatic cancer to the bones. The patient in the emergency room was pale, extremely weak. The patient was seen in room 101 and he was feeling nauseated and had diarrhea stool. PAST MEDICAL/SURGICAL HISTORY: Coronary bypass surgery History of hypertension Chronic anemia Metastatic prostatic cancer endstage followed by auto garage mechanic/oncologist. REVIEW OF SYSTEMS: CONSTITUTIONAL: No night sweats. Weakness and fatigue. No fever or chills. HEENT: Eyes: No visual changes. No eye pain. No eye discharge. ENT: No runny nose. No epistaxis. No sinus pain. No sore throat. No odynophagia. No ear pain. No congestion. RESPIRATORY: No cough, no congestion. No hemoptysis. Shortness of breath on minimal exertion. CARDIOVASCULAR: No angina symptoms. No CHF symptoms. No atypical chest pain for CAD. No palpitations. No orthopnea. No PND. GASTROINTESTINAL: No abdominal pain. Nausea with couple of times having vomiting. Diarrhea today total of 8-9 stools in past 8-12 hours liquid brownish there is odor to it. No hematemesis. No hematochezia. GENITOURINARY: No urgency. No frequency. No dysuria. No hematuria. No obstructive symptoms. No discharge. No pain. No significant abnormal bleeding. MUSCULOSKELETAL: No musculoskeletal pain. No joint swelling. No arthritis. NEUROLOGICAL: No headache. No neck pain. No syncope. No seizures. No dizziness. PSYCHIATRIC: Not anxious. No depression. No suicidal thoughts. No homicidal thoughts. SKIN: No rash. No lesions. No wounds. ENDOCRINE: No unexplained weight loss. No weight gain. HEMATOLOGIC/LYMPHATIC: No anemia. No purpura. No petechiae. No prolonged or excessive bleeding. No palpable lymph nodes. PERSONAL/FAMILY/SOCIAL HISTORY: The patient is and lives with the . He is nonsmoker and no alcohol abuse. He does all activity of daily living but lately his health has been failing. The patient's is up and about alert but confused and has dementia. MEDICATIONS: Meclizine 25mg PO three times a day MS Contin 15mg PO PRN Miralax one scoop PO daily Protonix 40mg PO daily Oxycodone/Percocet 10-325 Q 6 hours Flomax 0.4mg PO daily K-Dur 20meq PO twice a day ALLERGIES: Nones PHYSICAL EXAMINATION: GENERAL: The patient looks pale. VITAL SIGNS: Temperature 97.2, pulse 120, respiratory rate 22, blood pressure 110/63, pulse ox 98%. HEENT: Head normocephalic, atraumatic. Eyes: Extraocular muscles are intact. Pupils are equal, round and reactive to light and accommodation. Ears: No lesions. Nose appeared normal. Throat: No exudate or erythema. NECK: Supple. No JVP, no carotid bruit. No lymphadenopathy or thyromegaly. LUNGS: Clear to auscultation. Percussion note normal. Chest symmetrical. HEART: S1, S2 Tachycardia, no S3. Grade I/Vi systolic murmur. No cyanosis or clubbing. No ascites. Pulses: Dorsalis pedis and posterior tibial pulses +1. ABDOMEN: Soft. Nontender. Bowel sounds active. No CVA tenderness. No mass felt. EXTREMITIES: Trace pitting edema. Full range of motion of all extremities, equal. NEUROLOGIC: No focal deficit. Cranial nerves II through XII are grossly intact. No headache, no double vision or headache. SKIN: Dry. Intact. Turgor - normal. Mucosa membrane dry. LYMPHATIC: No palpable lymph nodes/no lymphedema. MUSCULOSKELETAL: Normal joints with no swelling. Muscle tone is normal. LABS: Creatinine 0.9, BUN 13, potassium 3.9, bilirubin 1.75, alkaline phosphatase 257 from metastatic CA of the prostate, INR normal, Hgb 9.4, hct 27, WBC 5,600 normal differential. ASSESSMENT: 1. Acute gastroenteritis with dehydration and weakness 2. Chronic anemia 3. Metastatic C of the prostate 4. Coronary bypass surgery PLAN: 1. Rehydration 2. Watch for fluid overload 3. Lomatol 2.5mg PO three times a day and one now 4. Zofran 4mg IV Q 6 hours 5. Stool for C-Diff 6. Flagyl 500mg PO three times a day 7. Daily CBC and CMP PROGNOSIS: Poor The patient is DNR TIME SPENT: More than 70 minutes. [facility]
--- NOTE | 2017-08-02 15:34 | PN ---
DATE OF SERVICE: 08/01/17 SUBJECTIVE: The patient had syncopal episode on command, vasovagal. The patient was supposed to go home but we will hold his discharge until tomorrow. The patient' s neurological status is stable. The patient was seen and examined with Nurse Practitioner. TIME SPENT: More than 30 minutes. Plan and coordination of the patient's care discussed in the presence of nurse. LACY
--- NOTE | 2017-08-03 08:33 | DS ---
DATE OF SERVICE: 08/02/17 FINAL DIAGNOSIS: 1. Acute gastroenteritis 2. C-Diff 3. Anemia, transfusion of 2 units packed cells 4. Prostate Cancer with Bone metastasis 5. Hypertension 6. COPD 7. Former Smoker 8. Dementia 9. History of CAD. LAST VITALS: Temperature 97.2, pulse 100, respiratory 14, blood pressure 142/68 and pulse ox 96%. DISCHARGE INSTRUCTIONS: Discharge home. Continue [facility] for nursing visits, medication compliance, skin assessment, nutritional status, weekly CBC on Monday and Fax to Dr. Mars office. Contact Dr. Kim for any other [facility] orders. An appointment scheduled with Dr. Mars/Jeanna Main APRN on August 08, 2017 at 1:30 MEDICATIONS AT DISCHARGE: Meclizine HCL 25mg PO three times a day PRN Calcium Carbonate/Vitamin D3 one tablet daily Ms Contin 15mg Po daily PRN Percocet 10-325 one tablet PO Q 6 hours PRN Protonix 40mg PO QDAC Miralax 17grams PO daily PRN K-Dur 20meq PO twice a day Flomax 0.4mg PO daily ALLERGIES: No known allergies NEW PRESCRIPTIONS: Flagyl 500mg three times a day for 10 days. DIET INSTRUCTIONS: Regular as tolerated. Small meals several times daily are encouraged, 5-6 ACTIVITY: Gradually resume as tolerated. Sit up during the day as tolerated. SMOKING: N/A DISEASE SPECIFIC EDUCATION: Diagnosis, cancer Importance of good nutrition, hydration C-Diff with contact precautions Good hand washing after elimination HOSPITAL COURSE: 77 year old white male hospitalized with diarrhea and acute gastroenteritis. The patient has C-Diff that was successfully treated with Flagyl. The patient's condition improved on Flagyl. He has formed stools. His hgb dropped to less than 8 so he was given two units of packed red cells and now his hgb is 9.2 with hct 28. He still continues to have some syncopal episodes and postoral hypotension. The patient was advised to be careful. He needs to walk with the walker and not to get up too quit. CONDITION: Stable PROGNOSIS: Poor, considering prostatic cancer with metastasis. TIME SPENT: More than 60 minutes. MTDD
--- NOTE | 2017-08-03 08:34 | PN ---
07/28/17: Level 5 07/29/17: Intermediate 07/30/17: Intermediate 07/31/17: Intermediate 08/01/17: Intermediate 08/02/17: D as in discharge MTDD
== END 2017-08-02 13:47 | disposition home or self-care (01) | DRG 392 ==
LOC: ED 08:37 → OBSVTOIN 10:21 → INTOOBSV 10:21 → MEDSURG A 10:21
PROVIDERS: ADMIT Internal Medicine; ATTEND Internal Medicine
DX: K52.9 Noninfective gastroenteritis and colitis, unspecified (principal); C79.51 Secondary malignant neoplasm of bone; D50.0 Iron deficiency anemia secondary to blood loss (chronic); R53.1 Weakness; A04.72 Enterocolitis due to Clostridium difficile, not specified as recurrent; E86.0 Dehydration; R93.1 Abnormal findings on diagnostic imaging of heart and coronary circulation; C61 Malignant neoplasm of prostate; I10 Essential (primary) hypertension; J44.9 Chronic obstructive pulmonary disease, unspecified; F03.90 Unspecified dementia, unspecified severity, without behavioral disturbance, psychotic disturbance, mood disturbance, and anxiety; I25.10 Atherosclerotic heart disease of native coronary artery without angina pectoris; R55 Syncope and collapse; Z87.891 Personal history of nicotine dependence; Z95.828 Presence of other vascular implants and grafts; Z95.1 Presence of aortocoronary bypass graft; Z79.899 Other long term (current) drug therapy
CPT/HCPCS: 36415; 36430; 80053; 85007; 85014; 85018; 85025; 85610; 85730; 86850; 86900; 86922; 87070; 87081; 87493; 93005; 93010; 97802; 99284

== ENCOUNTER 2017-08-02 14:50 | Observation (INO) ==
[2017-08-02 15:42] LABS: HEMATOCRIT 26.7 % (42.0-52.0); HEMOGLOBIN 9.1 g/dl (14.0-18.0); MEAN CORPUSCULAR HEMOGLOBIN 30.7 pg (27.0-31.0); MEAN CORPUSCULAR HGB CONC 34.1 (31.8-35.4); MEAN CORPUSCULAR VOLUME 90.2 fl (80.0-94.0); PLATELET COUNT 36 10^3/uL (140-440); RED BLOOD COUNT 2.96 10^6/ul (4.70-6.10); WHITE BLOOD COUNT 5.85 K/ul (4.2-10.2)
[2017-08-02 15:55] LABS: PARTIAL THROMBOPLASTIN TIME 30.7 SEC (23.9-40.0); PROTHROMBIN TIME 14.7 SEC (9.3-11.0)
--- NOTE | 2017-08-02 16:00 | DI ---
EXAM: Chest one view, frontal view only. HISTORY: Cough. COMPARISON: 07/28/2017. FINDINGS: Left-sided chest port again noted. Median sternotomy wires are present. Heart size is no rmal. Small pleural effusions are present. No pneumothorax identified. No localized consolidation detected. Old right rib fracture noted. Question portion of a catheter over the upper abdomen versu s external object. IMPRESSION: 1. Small pleural effusions. 2. Possible catheter fragment versus external object over the epigastric region. Follow-up radiograp hs recommended.
[2017-08-02 16:07] LABS: ALBUMIN 1.8 g/dL (3.4-5.0); ALBUMIN/GLOBULIN RATIO 0.64; ANION GAP 18.8; BILIRUBIN,TOTAL 1.28 mg/dL (0.00-1.20); BUN/CREATININE RATIO 17.03; CALCIUM 8.1 mg/dL (8.2-10.2); CREATININE 1.35 mg/dL (0.60-1.10); POTASSIUM 4.8 mmol/L (3.5-5.1); TOTAL PROTEIN 4.6 g/dL (5.8-8.1); TROPONIN I 0.026 ng/ml (0.0000-0.4000)
[2017-08-02 16:18] LABS: ANISOCYTOSIS NOT PRESENT (NOT PRESENT)
[2017-08-02] MEDS ORDERED: MS CONTIN PO PRN (17:16)
[2017-08-02] MEDS ORDERED: PERCOCET 10-325 PO PRN (17:16)
[2017-08-02] MEDS ORDERED: ANTIVERT PO PRN (17:16)
[2017-08-02] MEDS ORDERED: MIRALAX PO PRN (17:16)
--- NOTE | 2017-08-02 17:27 | ED.PDOC ---
General ED Provider: Dr. CATRINA MCKENNA Chief Complaint: Syncope Stated Complaint: syncope Time Seen by Physician: 15:00 (syncope) Mode of Arrival: Ambulance Information Source: Patient, EMT Exam Limitations: No limitations Primary Care Provider: CALOS VÁSQUEZ Nursing and Triage Documentation Reviewed and Agree: Yes Neurological Complaint Exam - Syncope/Near Syncope Complaint/Exam Onset/Duration: 2 hrs ago Symptoms Are: Resolved Episodes Lasting: Seconds Number of Episodes: 1 Frequency of Episodes: 1 Episodes Witnessed: Yes Loss of Consciousness: No Associated Head Trauma: No Activity at Onset: With exertion Aggravating: Position change Alleviating: Reports: Spontaneous resolution Associated Signs and Symptoms: Denies: Pain, Decreased oral intake, Vomiting, Diarrhea, GI blood loss, Short of air, Chest pain, Palpitations, Diaphoresis, Lightheadedness, Dizziness, Weakness, AMS, Numbness, Headache, Seizure, Remote head trauma, Recent head trauma Related History: Similar episode Cardiac Risk Factors: Reports: Hypertension Dysrhythmia Risk Factors: Reports: >45 years old, Underlying CAD Related Surgical History: Reports: None JVD Present: No Carotid Bruit Present: No Glascow Coma Scale (see protocol): 15 Nystagmus Present: No Gag Reflex Present: No Meningeal Signs Positive: No Focal Weakness: Present: None Focal Sensory Loss: Present: None Gait: Normal Babinski Sign: Negative Right, Negative Left Differential Diagnoses: CAD, HI, Dysrhythmia, GI Bleed, Metabolic Reaction, Vasovagal Episode Quality Indicators for Cardiac Chest Pain: EKG in 10min. Quality Indicator For Non-Traumatic Chest Pain/Syncope: EKG Performed Quality Indicators for AMI: EKG in 10min. Review of Systems - Review Of Systems Constitutional: Reports: No symptoms Eyes: Reports: No symptoms Ears, Nose, Mouth, Throat: Reports: No symptoms Respiratory: Reports: No symptoms Cardiac: Reports: Syncope GI: Reports: No symptoms : Reports: No symptoms Musculoskeletal: Reports: No symptoms Skin: Reports: No symptoms Neurological: Reports: No symptoms Endocrine: Reports: No symptoms Hematologic/Lymphatic: Reports: No symptoms All Other Systems: Reviewed and Negative Past Medical History - Past Medical History Previously Healthy: No Endocrine: Reports: DM 2, Dyslipidemia Cardiovascular: Reports: Hypertension Respiratory: Reports: COPD Hematological: Reports: None Gastrointestinal: Reports: None Genitourinary: Reports: None Neuro/Psych: Reports: None Musculoskeletal: Reports: None Cancer: Reports: Other (PROSTATE) - Surgical History General Surgical History: Reports: None - Family History Family History: Reports: None - Social History Smoking Status: Former smoker Hx Substance Use: No Alcohol Screening: None Physical Exam - Physical Exam Appearance: Ill-appearing, No pain distress, Well-nourished Ill-appearing: Moderate Pain Distress: Moderate Eyes: HOLLY, EOMI, Conjunctiva clear ENT: Ears normal, Nose normal, Oropharynx normal Respiratory: Airway patent, Breath sounds clear, Breath sounds equal, Respirations nonlabored Cardiovascular: RRR, Pulses normal, No rub, No murmur GI/: Soft, Nontender, No masses, Bowel sounds normal, No Organomegaly Musculoskeletal: Normal strength, ROM intact, No edema, No calf tenderness Skin: Warm, Dry, Normal color Neurological: Sensation intact, Motor intact, Reflexes intact, Cranial nerves intact, Alert, Oriented Psychiatric: Affect appropriate, Mood appropriate Physician Notification - Case Discussed Physician Notified: pmd Time of Notification: 16:30 Admit To: Observation Critical Care Note - Critical Care Note Total Time (mins): 0 Course - Course Hematology/Chemistry: 08/02/17 15:30 08/02/17 15:30 Orders, Labs, Meds: Lab Review 08/02/17 08/02/17 08/02/17 15:30 15:30 15:30 WBC 5.85 RBC 2.96 L Hgb 9.1 L Hct 26.7 L MCV 90.2 MCH 30.7 MCHC 34.1 RDW Coeff of Bryn 18.0 H Plt Count 36 L Neutrophils % (Manual) 85.0 H Band Neutrophils % 3.0 Lymphocytes % (Manual) 6.0 L Monocytes % (Manual) 2.0 Metamyelocytes % 4.0 H Anisocytosis Not present PT 14.7 H INR 1.46 APTT 30.7 Sodium 132 L Potassium 4.8 Chloride 104 Carbon Dioxide 14 L Anion Gap 18.8 BUN 23 H Creatinine 1.35 H Estimated GFR (MDRD) 51.00 BUN/Creatinine Ratio 17.03 Glucose 140 H Calcium 8.1 L Total Bilirubin 1.28 H AST 52 H ALT 14 Alkaline Phosphatase 217 H Total Creatine Kinase 92 Troponin I 0.0260 Total Protein 4.6 L Albumin 1.8 L Globulin 2.8 Albumin/Globulin Ratio 0.64 Orders Category Date Time Status EKG-(ED ONLY) Stat CARDIO 08/02/17 15:16 Ordered BLOOD CULTURE (ED ONLY) Stat LAB 08/02/17 15:30 Received CBC W/ AUTO DIFF Stat LAB 08/02/17 15:30 Completed COMPREHENSIVE METABOLIC PANEL Stat LAB 08/02/17 15:30 Completed CREATINE KINASE Stat LAB 08/02/17 15:30 Completed MANUAL DIFFERENTIAL Stat LAB 08/02/17 15:30 Completed PARTIAL THROMBOPLASTIN TIME Stat LAB 08/02/17 15:30 Completed PT WITH INR Stat LAB 08/02/17 15:30 Completed TROPONIN I Stat LAB 08/02/17 15:30 Completed CHEST, 1V AP ONLY Stat RADS 08/02/17 15:37 Completed Medications Generic Name Dose Route Start Last Admin Trade Name Freq PRN Reason Stop Dose Admin Meclizine HCl 25 mg 08/02/17 17:16 Antivert PO TID PRN Dizziness Morphine Sulfate 15 mg 08/02/17 17:16 Ms Contin PO DAILY PRN pain Non-Formulary Medication 1 each 08/03/17 09:00 Calcium Carbonate/Vitamin D3 [Calcium 600 + Vit D 400 Tablet] PO DAILY [facility] Non-Formulary Medication 500 mg 08/02/17 21:00 Metronidazole [Flagyl] PO TID [facility] Oxycodone/Acetaminophen 1 tab 08/02/17 17:16 Percocet 10-325 PO Q6H PRN pain Pantoprazole Sodium 40 mg 08/03/17 06:30 Protonix PO QDAC [facility] Polyethylene Glycol 17 gm 08/02/17 17:16 Miralax PO DIRECTED PRN Constipation Potassium Chloride 20 meq 08/02/17 21:00 K-Dur PO BID [facility] Tamsulosin HCl 0.4 mg 08/03/17 09:00 Flomax PO DAILY [facility] Vital Signs: Temp Pulse Resp BP Pulse Ox 08/02/17 14:50 97.2 F L 101 H 20 136/81 99 Departure - Departure Time of Disposition: 17:27 Disposition: PLACED OBSERVATION Discharge Problem: Syncope Condition: Good Pt referred to PMD for follow-up: Yes Allergies/Adverse Reactions: Allergies No Known Allergies Allergy (Verified 08/02/17 14:54) Home Medications: Ambulatory Orders Meclizine HCl 25 mg PO TID PRN 10/31/16 Morphine Sulfate [Ms Contin] 15 mg PO DAILY PRN 10/31/16 Polyethylene Glycol 3350 [Miralax] 17 gm PO DIRECTED PRN 10/31/16 Pantoprazole Sodium [Protonix] 40 mg PO QDAC #30 tablet. 04/27/17 Calcium Carbonate/Vitamin D3 [Calcium 600 + Vit D 400 Tablet] 1 each PO DAILY Oxycodone-Acetaminophen 10-325 [Percocet 10-325] 1 tab PO Q6H PRN 06/15/17 Tamsulosin HCl [Flomax] 0.4 mg PO DAILY 06/15/17 Potassium Chloride [K-Dur] 20 meq PO BID #28 tab 07/18/17 Metronidazole [Flagyl] 500 mg PO TID #30 tablet 08/02/17 Disposition Discussed With: Patient, Family
[2017-08-02 17:53] VITALS: BMI 23.3
[2017-08-02] MEDS: K-DUR PO SCH ×2 (20:26→20:33)
[2017-08-02] MEDS ORDERED: NON-FORMULARY MEDICATION (Metronidazole [Flagyl] 500 MG) PO SCH (21:00)
[2017-08-02] MEDS: SODIUM CHLORIDE 1,000 ML IV SCH (21:40)
[2017-08-02 23:45] LABS: TROPONIN I 0.034 ng/ml (0.0000-0.4000)
[2017-08-03 05:13] LABS: BASOPHILS % (AUTO) 0.3 % (0.0-3.0); EOSINOPHILS % (AUTO) 0.2 % (0.0-7.0); HEMATOCRIT 24.4 % (42.0-52.0); HEMOGLOBIN 8.2 g/dl (14.0-18.0); IMMATURE GRANULOCYTE % (AUTO) 5.1 % (0.0-5.0); LYMPHOCYTES # (AUTO) 0.6 K/uL (0.60-3.4); LYMPHOCYTES % (AUTO) 9.8 (10.0-50.0); MEAN CORPUSCULAR HEMOGLOBIN 30.4 pg (27.0-31.0); MEAN CORPUSCULAR HGB CONC 33.6 (31.8-35.4); MEAN CORPUSCULAR VOLUME 90.4 fl (80.0-94.0); MONOCYTES # (AUTO) 0.4 K/uL (0.4-2.0); MONOCYTES % (AUTO) 6.9 (0-10); NEUTROPHILS # (AUTO) 4.8 K/ul (2.0-6.9); NEUTROPHILS % (AUTO) 77.7; PLATELET COUNT 39 10^3/uL (140-440); WHITE BLOOD COUNT 6.22 K/ul (4.2-10.2)
[2017-08-03 05:33] LABS: ALBUMIN 1.7 g/dL (3.4-5.0); ALBUMIN/GLOBULIN RATIO 0.68; BILIRUBIN,TOTAL 1.03 mg/dL (0.00-1.20); BUN/CREATININE RATIO 20.43; CALCIUM 7.7 mg/dL (8.2-10.2); CREATININE 1.37 mg/dL (0.60-1.10); TOTAL PROTEIN 4.2 g/dL (5.8-8.1)
[2017-08-03] MEDS ORDERED: PROTONIX PO SCH (06:30)
[2017-08-03] MEDS ORDERED: PERCOCET 10-325 PO PRN (07:30)
[2017-08-03 08:29] LABS: TROPONIN I 0.033 ng/ml (0.0000-0.4000)
[2017-08-03] MEDS ORDERED: MIRALAX PO PRN (08:30)
[2017-08-03] MEDS ORDERED: FLOMAX PO SCH (09:00)
[2017-08-03] MEDS ORDERED: K-DUR PO SCH (09:00)
[2017-08-03] MEDS ORDERED: NON-FORMULARY MEDICATION (Metronidazole [Flagyl] 500 MG) PO SCH (09:00)
[2017-08-03 09:03] LABS: CREATINE KINASE MB 1.2 ng/ml (0.0-3.6)
[2017-08-03] MEDS: FLAGYL PO SCH ×2 (09:26→13:42)
[2017-08-03] MEDS: SODIUM CHLORIDE 1,000 ML IV SCH (09:28)
--- NOTE | 2017-08-03 11:44 | PCM.PROG ---
Attending Provider: ATTENDING PROVIDER: Dr. CALOS VÁSQUEZ This patient is seen with Jeanna Main, Nurse Practitioner. DATE OF SERVICE: 08/03/17 SUBJECTIVE: This 77 year old WHITE/ M was hospitalized 08/02/17. The patient is alert, lying in bed. He states he feels somewhat better today. Dizziness and faintness due to postural hypotension relative to prostate cancer with bone mets and general deterioration of health, anemia due to blood loss from prostate cancer with bone mets. Will give 2 units PRBCs. REVIEW OF SYSTEMS: CONSTITUTIONAL: Weakness. No night sweats. No fever or chills. HEENT: Eyes: No visual changes. No eye pain. No eye discharge. ENT: No runny nose. No epistaxis. No sinus pain. No odynophagia. No congestion. RESPIRATORY: No cough, no congestion. No hemoptysis. Shortness of breath, mild. CARDIOVASCULAR: No angina symptoms. No CHF symptoms. No atypical chest pain for CAD. No palpitations. No orthopnea.. GASTROINTESTINAL: No abdominal pain. No nausea or vomiting. No diarrhea or constipation. No hematemesis. No hematochezia. GENITOURINARY: No urgency. No frequency. No dysuria. No hematuria. No obstructive symptoms. No discharge. No pain. No significant abnormal bleeding. MUSCULOSKELETAL: No musculoskeletal pain; no joint swelling. NEUROLOGICAL: Positive for dizziness. Awake, alert, oriented to time, place and person. No headache. No neck pain. No syncope. No seizures. PSYCHIATRIC: Not anxious. No depression. No suicidal thoughts. No homicidal thoughts. SKIN: No rash. No lesions. No wounds. ENDOCRINE: No unexplained weight loss. No weight gain. HEMATOLOGIC/LYMPHATIC: No anemia. No purpura. No petechiae. No prolonged or excessive bleeding. No palpable lymph nodes. PHYSICAL EXAMINATION: GENERAL: The patient is awake, alert and oriented, lying in bed in no distress. Pallor positive. VITAL SIGNS: Temperature 97.6 F, Pulse 113, Respiratory Rate 16, BP 117/75, Pulse Ox 97% HEENT: Head normocephalic, atraumatic. Eyes: Extraocular muscles are intact. Pupils are equal, round and reactive to light and accommodation. Ears: No lesions. Nose appeared normal. Throat: No exudate or erythema. NECK: Supple. No JVD, no carotid bruit. No lymphadenopathy or thyromegaly. LUNGS: Diminished breath sounds. Mild shortness of breath. Clear to auscultation. Percussion note normal. Chest symmetrical. HEART: S1, S2, no S3. No murmurs. No cyanosis or clubbing. No ascites. Pulses: Dorsalis pedis and posterior tibial pulses +1 to +2 both sides. ABDOMEN: Soft. Non-tender. Bowel sounds active. No CVA tenderness. No mass felt. EXTREMITIES: No edema. Full range of motion of all extremities, equal. NEUROLOGIC: No focal deficit. Cranial nerves II through XII are grossly intact. No headache, no double vision or headache. SKIN: Warm, dry and intact. Turgor-normal. LYMPHATIC: No palpable lymph nodes/no lymphedema. MUSCULOSKELETAL: Normal joints with no swelling. Muscle tone is normal. LAB REVIEW: 08/03/17 04:25 08/03/17 04:25 08/03/17 04:25: Sodium 133 L, Potassium 5.0, Chloride 105, Carbon Dioxide 17 L, Anion Gap 16.0, BUN 28 H, Creatinine 1.37 H, Estimated GFR (MDRD) 50.00, BUN/ Creatinine Ratio 20.43, Glucose 98, Calcium 7.7 L, Total Bilirubin 1.03, AST 63 H, ALT 13, Alkaline Phosphatase 200 H, Total Protein 4.2 L, Albumin 1.7 L, Globulin 2.5, Albumin/Globulin Ratio 0.68 08/03/17 04:25: WBC 6.22, RBC 2.70 L, Hgb 8.2 L, Hct 24.4 L, MCV 90.4, MCH 30.4 , MCHC 33.6, RDW Coeff of Bryn 18.1 H, Plt Count 39 L, Immature Gran % (Auto) 5.1 H, Neut % (Auto) 77.7, Lymph % (Auto) 9.8 L, Shannon % (Auto) 6.9, Eos % (Auto ) 0.2, Baso % (Auto) 0.3, Immature Gran # (Auto) 0.3, Neut # 4.8, Lymph # 0.6, Shannon # 0.4, Eos # 0.0, Baso # 0.0 08/02/17 23:08: Total Creatine Kinase 114, Troponin I 0.0340 ASSESSMENT: 1. Symptomatic anemia 2. Orthostatic hypotension 3. Prostate cancer with bone mets PLAN: 1. Two units PRBC's 2. Anticipate d/c home Poor prognosis and disease progression discussed in detail regarding future expectations of health and wellbeing; the patient refuses hospice care. Plan and coordination of the patient's care discussed in the presence of [employer] and nurse. CONDITION: Stable PROGNOSIS IS POOR. SCRIBED BY: STEVO RESENDIZ Community Coordinator scribed while in presence of service performed by Dr. Vásquez/Jeanna Main APRN on 08/03/17 ([id number])
[2017-08-03 17:25] VITALS: TEMP 98.1
[2017-08-03 17:50] VITALS: BP 112/54
[2017-08-03 18:54] LABS: HEMATOCRIT 30.4 % (42.0-52.0); HEMOGLOBIN 10.3 g/dl (14.0-18.0)
[2017-08-04] MEDS ORDERED: PROTONIX PO SCH (06:30)
--- NOTE | 2017-08-07 09:22 | PN ---
DATE OF SERVICE: 08/02/17 ADMIT NOTE. SUBJECTIVE: 77 year old white male was readmitted again with scope. The patient's syncope is postoral and vasovagal. Metastatic C of the prostate with severe anemia is endstage. The patient went home and syncope episode happened which the patient has been monitored with syncopal episode twice in the hospital. He did not have any pauses. The patient's syncope is drop in the blood pressure. In the emergency room the blood pressure was 80-90's. He is being given fluid. His hgb and hct has dropped from hemodilution to 8.2 and 24. He will be given blood. CONDITION: Stable. The patient was seen in the emergency room. Dr. Renner was present and we decided to put him on observation. The patient's condition is endstage. The patient has refused Hospice or go to the care home. The is demented. TIME SPENT: More than 30 minutes. Plan and coordination of the patient's care discussed in the presence of nurse. LACY
[2017-08-09 19:09] LABS: BACTERIA IDENTIFICATION Final report (.)
--- NOTE | 2017-08-11 08:31 | SSS ---
DATE OF SERVICE: 08/02/17 OBSERVATION REASON FOR ADMISSION: Symptomatic anemia with postural hypotension. HISTORY OF PRESENT ILLNESS: Discharged from hospital 08/02/17(gastroenteritis, C-Diff). Has near syncope episode after getting home. Stood up and nearly "passed out" REVIEW OF SYSTEMS: CONSTITUTIONAL: No night sweats. No fatigue, malaise, lethargy. No fever or chills. HEENT: Eyes: No visual changes. No eye pain. No eye discharge. ENT: No runny nose. No epistaxis. No sinus pain. No sore throat. No odynophagia. No ear pain. No congestion. RESPIRATORY: No cough, no congestion. No hemoptysis. No shortness of breath. CARDIOVASCULAR: No angina symptoms. No CHF symptoms. No atypical chest pain for CAD. No palpitations. No orthopnea. GASTROINTESTINAL: No abdominal pain. Nausea. No diarrhea or constipation. No hematemesis. No hematochezia. GENITOURINARY: No dysuria. No hematuria. No obstructive symptoms. No discharge. No pain. No significant abnormal bleeding. MUSCULOSKELETAL: No musculoskeletal pain. No joint swelling. NEUROLOGICAL: Awake, alert, oriented to time, place and person. No headache. No neck pain. No syncope. No seizures. No dizziness. PSYCHIATRIC: Not anxious. No depression. No suicidal thoughts. No homicidal thoughts. SKIN: No rash. No lesions. No wounds.Bruising to back. ENDOCRINE: No unexplained weight loss. No weight gain. HEMATOLOGIC/LYMPHATIC: No anemia. No purpura. No petechiae. No prolonged or excessive bleeding. No palpable lymph nodes. PAST HISTORY: Prostate cancer with bone METS Anemia with multiple transfusions Hypertension COPD Dementia Coronary artery disease History of smoking Recent C-Diff on Flagyl PERSONAL/FAMILY HISTORY/SOCIAL HISTORY: The patient is and lives . Previous smoker. Retired. has walker, electric wheelchair, [facility] PHYSICAL EXAMINATION: GENERAL:The patient is alert and oriented. VITAL SIGNS: Temperature 97.1, pulse 99, respiratory rate 16, oxygen saturation 97% on 2 liters, blood pressure 102/48. Age 77 years, Height 6'1" and weight 177. HEENT: Head normocephalic, atraumatic. Eyes: Extraocular muscles are intact. Pupils are equal, round and reactive to light and accommodation. Ears: No lesions. Nose appeared normal. Throat: No exudate or erythema. Pale NECK: Supple. No JVD, no carotid bruit. No lymphadenopathy or thyromegaly. LUNGS: Clear to auscultation. Percussion note normal. Chest symmetrical. HEART: S1, S2, no S3. No murmurs. No cyanosis or clubbing. No ascites. Pulses: Dorsalis pedis and posterior tibial pulses +1. ABDOMEN: Soft. Nontender. Bowel sounds active x 4 quadrants. No CVA tenderness. No mass felt. EXTREMITIES: No edema. Full range of motion of all extremities, equal. NEUROLOGIC: No focal deficit. Cranial nerves II through XII are grossly intact. No headache, no double vision or headache. SKIN: Not dry. Intact. Turgor - normal. LYMPHATIC: No palpable lymph nodes/no lymphedema. MUSCULOSKELETAL: Normal joints with no swelling. Muscle tone is normal. ALLERGIES: No known allergies MEDICATIONS: Meclizine MS Contin Miralax Protonix Calcium plus D Oxycodone 10-325 Flomax K-Dur Flagyl (new RX) LABS/EKG'S/X-RAY/ECHO/ABG: Chest x-ray small pleural effusion, EKG sinus tachycardia, PT 14.7, hgb 9.1, hct 26.7, platelet 36, sodium 132, BUN 23, creatinine 1.35, Alkaline phosphatase 217, Albumin 1.8, Total protein 4.6. PROGRESS NOTES: See EMR. Old/Present Records Reviewed: Yes DIAGNOSES: 1. Anemia, symptomatic 2. Orthostatic Hypotension 3. Prostate cancer with bone METS. RECOMMENDATIONS/PLAN: 08/03 1. Discharge home 2. Complete Flagyl prescription 3. Stop Flomax(Tamsulosin) 4. Diet and Liquids as tolerated 5. Eat 5-6 small meals daily 6. [facility] to continue 7. Continue all home medication except Flomax 8. Keep office appointment on August 08, 2017 TIME SPENT: More than 70 minutes. LACY
== END 2017-08-03 19:38 | disposition home health service (06) ==
LOC: ED 14:50 → MEDSURG A 16:31
PROVIDERS: ADMIT Internal Medicine; ATTEND Internal Medicine
DX: C61 Malignant neoplasm of prostate (principal); D63.0 Anemia in neoplastic disease; C79.51 Secondary malignant neoplasm of bone; I95.1 Orthostatic hypotension; J90 Pleural effusion, not elsewhere classified; I10 Essential (primary) hypertension; R55 Syncope and collapse; R53.83 Other fatigue; R23.1 Pallor; R53.1 Weakness; Z79.891 Long term (current) use of opiate analgesic; Z79.899 Other long term (current) drug therapy
CPT/HCPCS: 36415; 36430; 80053; 82550; 82553; 82962; 84484; 85007; 85014; 85018; 85025; 85610; 85730; 86850; 86900; 86922; 87040; 87070; 87077; 93005; 93010; 99284

== ENCOUNTER 2017-08-09 18:00 | Outpatient (CLI) | END 2017-08-09 18:01 | disposition home health service (06) | LOC: AMBL 18:00 | PROVIDERS: ATTEND Emergency Medicine | DX: Z74.1 Need for assistance with personal care (principal) ==